=== PATIENT | female | born 1980 | race Caucasian/White ===

== ENCOUNTER 2020-10-06 11:33 | Emergency (ER) | payer MEDICARE, MEDICAID, SELFPAY ==
[2020-10-06 11:38] VITALS: BP 147/81; PULSE 98; RESP 18; O2SAT 96
[2020-10-06] MEDS: SODIUM CHLORIDE 0.9% IV 1,000 ML 999 ML IV CONT (12:03)
[2020-10-06 13:16] VITALS: BP 132/89; PULSE 97; RESP 16; O2SAT 99
--- NOTE | 2020-10-06 13:50 | ED.ALLEREA ---
HPI - Allergic Reaction General Chief complaint: Allergic Reaction Stated complaint: ALLERGIC REACTION Time Seen by Provider: 10/06/20 11:38 History of Present Illness HPI narrative: Patient is a 40-year-old female with extensive allergy history who presents ER with allergic reaction. Reports she touched a piece of candy that likely contained red dye and she began to develop hives on her hands. She also began to feel like her throat was swelling shut. She gave herself 2 intramuscular injections of epinephrine and 4 of Decadron. She also took 50 mg of Benadryl p.o. Patient feels much better this time. Related Data Home Medications Medication Instructions Recorded Confirmed albuterol mcg INHALATION PRN 10/06/20 azelastine INTRANASAL 10/06/20 budesonide-formoterol [Symbicort] INHALATION 10/06/20 butalbital-acetaminophen tablet PRN 10/06/20 clonazepam 0.75 10/06/20 epinephrine 10/06/20 fluticasone propionate INTRANASAL 10/06/20 hydrocortisone 35 DAILY 10/06/20 insulin lispro [Humalog Pen] See Rx Instructions .ROUTE .COMPLEX 10/06/20 levocetirizine [Xyzal] 5 mg PO QID 10/06/20 liraglutide [Victoza 3-Migel] 1.8 mg SUBCUT DAILY 10/06/20 prasterone (dhea)-calcium carb tablet PO 10/06/20 [DHEA] spironolactone 10/06/20 Allergies Allergy/AdvReac Type Severity Reaction Status Date / Time peanut Allergy Severe Anaphylactic Verified 10/06/20 11:50 Shock red dye Allergy Severe Anaphylactic Verified 10/06/20 11:50 Shock Sulfa (Sulfonamide Allergy Severe Anaphylactic Verified 10/06/20 11:50 Antibiotics) Shock famotidine Allergy Intermediate Rash Verified 10/06/20 11:50 apple Allergy Mild Hives / Verified 10/06/20 11:50 Red Face cefprozil Allergy Unknown Hives / Verified 10/06/20 11:50 Red Face celecoxib Allergy Unknown Hives / Verified 10/06/20 11:50 Red Face lansoprazole Allergy Unknown Rash Verified 10/06/20 11:50 morphine Allergy Unknown Hives / Verified 10/06/20 11:50 Red Face Penicillins Allergy Unknown Hives / Verified 10/06/20 11:50 Red Face potassium guaiacolsulfonate Allergy Unknown Hives / Verified 04/16/17 19:28 Red Face tetracycline Allergy Unknown Hives / Verified 10/06/20 11:50 Red Face Chocolate Allergy Severe Anaphylactic Uncoded 08/07/16 17:56 Shock ALMOTRIPTAN MALATE Allergy Unknown Rash Uncoded 04/16/17 19:28 CIPROFLOXACIN HCL Allergy Unknown Rash Uncoded 04/16/17 19:28 CLINDAMYCIN HCL Allergy Unknown Hives / Uncoded 04/16/17 19:28 Red Face METOCLOPRAMIDE HCL Allergy Unknown Hives / Uncoded 04/16/17 19:28 Red Face MONTELUKAST SODIUM Allergy Unknown Hives / Uncoded 04/16/17 19:28 Red Face RANITIDINE HCL Allergy Unknown Anaphylactic Uncoded 04/16/17 19:28 Shock SERTRALINE HCL Allergy Unknown Anaphylactic Uncoded 04/16/17 19:28 Shock Review of Systems Review of Systems: All systems reviewed & are unremarkable except as noted in HPI and below Constitutional: Constitutional: Denies chills, Denies fever(s) and Denies weakness ENT: Denies sore throat Comments: Swelling of throat Respiratory: Respiratory: Denies cough, Reports dyspnea and Denies wheezing Integumentary/Breasts: Comments: Rash to hands. PMFSH Past Medical History Medical History (Updated 10/06/20 @ 13:58 by Renny Anderson MD) Asthma Diabetes Gilbert's thyroiditis Kidney stones Migraines PTSD (post-traumatic stress disorder) Surgical History Surgical History (Updated 10/06/20 @ 13:55 by Renny Anderson MD) History of section Social History Social History Gender identity (if verbalized by the patient): Female Exam Narrative: Exam Narrative: GENERAL: Well-appearing, well-nourished, and in no acute distress. HEAD: Normocephalic, atraumatic. ENT: Mucous membranes moist. No angioedema. Normal-appearing posterior oropharynx. CHEST: Clear to auscultation. No respiratory distress. HEART: Regular rate and rhythm. No
[2020-10-06 14:13] VITALS: BP 119/82; PULSE 91; RESP 16; O2SAT 98
== END 2020-10-06 14:14 | disposition home or self-care (01) ==
PROVIDERS: Emergency Provider Emergency Medicine; PCP Family Medicine
DX: L50.0 Allergic urticaria (principal); Z79.4 Long term (current) use of insulin; E11.9 Type 2 diabetes mellitus without complications
CPT/HCPCS: 96360; 99283; J7030

== ENCOUNTER 2021-03-20 14:46 | Emergency (ER) | payer MEDICARE, MEDICAID, SELFPAY ==
[2021-03-20 14:55] VITALS: BP 140/86; PULSE 89; RESP 16; TEMP 36.6; O2SAT 99
--- NOTE | 2021-03-20 15:49 | ED.URI ---
HPI - URI/Sore Throat General Chief Complaint: Upper Respiratory Infection Stated Complaint: chest congestion with asthma Time Seen by Provider: 03/20/21 15:34 Source: patient and RN notes reviewed Mode of arrival: ambulatory Limitations: no limitations History of Present Illness HPI Narrative: Patient presents today with a 6 to 7-day history of postnasal drip, congestion, fatigue, productive cough with yellow sputum, shortness of breath with mild wheezing. The wheezing started a few hours prior to arrival. Denies fever. History of asthma, adrenal insufficiency, Gilbert's thyroiditis, diabetes. She currently rates her pain 5/10 and has been using Flonase, Mucinex, sinus rinses, extra doses of her Symbicort per her doctor's order with some relief. MD elicited complaint: cough and nasal congestion Related Data Home Medications Medication Instructions Recorded Confirmed albuterol 90 mcg INHALATION Q4H PRN 10/06/20 azelastine See Rx Instructions .ROUTE .COMPLEX 10/06/20 epinephrine See Rx Instructions .ROUTE 10/06/20 .COMPLEX PRN albuterol sulfate INHALATION 03/20/21 azelastine INTRANASAL 03/20/21 blood-glucose sensor [Dexcom G6 03/20/21 03/20/21 Sensor] blood-glucose transmitter [Dexcom 03/20/21 03/20/21 G6 Transmitter] budesonide-formoterol [Symbicort] INHALATION 03/20/21 butalbital-acetaminophen tablet 03/20/21 clonazepam 03/20/21 clotrimazole mg 03/20/21 dexamethasone sodium phosphate 03/20/21 epinephrine 03/20/21 fluticasone propionate INTRANASAL 03/20/21 hydroxyzine HCl 03/20/21 insulin lispro SUBCUT 03/20/21 ipratropium-albuterol ml INHALATION 03/20/21 levocetirizine mg 03/20/21 levothyroxine 03/20/21 liraglutide [Victoza 3-Migel] mg SUBCUT 03/20/21 medroxyprogesterone mg 03/20/21 medroxyprogesterone mg 03/20/21 mometasone-formoterol [Dulera] INHALATION 03/20/21 pen needle, diabetic [BD Isela 2nd 03/20/21 03/20/21 Gen Pen Needle] promethazine 03/20/21 spironolactone 03/20/21 Allergies Allergy/AdvReac Type Severity Reaction Status Date / Time peanut Allergy Severe Anaphylactic Verified 03/20/21 15:29 Shock red dye Allergy Severe Anaphylactic Verified 03/20/21 15:29 Shock Sulfa (Sulfonamide Allergy Severe Anaphylactic Verified 03/20/21 15:29 Antibiotics) Shock famotidine Allergy Intermediate Rash Verified 03/20/21 15:29 apple Allergy Mild Hives / Verified 03/20/21 15:29 Red Face cefprozil Allergy Unknown Hives / Verified 03/20/21 15:29 Red Face celecoxib Allergy Unknown Hives / Verified 03/20/21 15:29 Red Face lansoprazole Allergy Unknown Rash Verified 03/20/21 15:29 morphine Allergy Unknown Hives / Verified 03/20/21 15:29 Red Face Penicillins Allergy Unknown Hives / Verified 03/20/21 15:29 Red Face potassium guaiacolsulfonate Allergy Unknown Hives / Verified 03/20/21 15:29 Red Face tetracycline Allergy Unknown Hives / Verified 03/20/21 15:29 Red Face Chocolate Allergy Severe Anaphylactic Uncoded 03/20/21 15:29 Shock ALMOTRIPTAN MALATE Allergy Unknown Rash Uncoded 03/20/21 15:29 CIPROFLOXACIN HCL Allergy Unknown Rash Uncoded 03/20/21 15:29 CLINDAMYCIN HCL Allergy Unknown Hives / Uncoded 03/20/21 15:29 Red Face METOCLOPRAMIDE HCL Allergy Unknown Hives / Uncoded 03/20/21 15:29 Red Face MONTELUKAST SODIUM Allergy Unknown Hives / Uncoded 03/20/21 15:29 Red Face RANITIDINE HCL Allergy Unknown Anaphylactic Uncoded 03/20/21 15:29 Shock SERTRALINE HCL Allergy Unknown Anaphylactic Uncoded 03/20/21 15:29 Shock Review of Systems Review of Systems: CONSTITUTIONAL: Denies body aches, fever, chills, or sweats.+ Fatigue EYES: Denies visual changes, redness, or discharge. ENT: Denies rhinorrhea, sore throat, or otalgia.+ Congestion, postnasal drip CARDIOVASCULAR: Denies chest pain, palpitations, or edema. RESPIRATORY: + Cough, shortness of breath, wheezing GASTROINTESTINAL: Denies abdominal pain, nausea, v
== END 2021-03-20 16:05 | disposition home or self-care (01) ==
PROVIDERS: Emergency Provider Nurse Practitioner; PCP Family Medicine
DX: J06.9 Acute upper respiratory infection, unspecified (principal); J45.901 Unspecified asthma with (acute) exacerbation; E11.9 Type 2 diabetes mellitus without complications; E06.3 Autoimmune thyroiditis
CPT/HCPCS: 99213; G0463

== ENCOUNTER 2022-01-20 09:04 | Emergency (ER) | payer MEDICARE, MEDICAID, SELFPAY ==
[2022-01-20 09:12] VITALS: BP 134/92; PULSE 104; RESP 16; TEMP 36.9; O2SAT 98
--- NOTE | 2022-01-20 09:44 | ED.FEMALEGU ---
HPI - Female Genitourinary General Chief complaint: Urogenital-Female Stated complaint: Urinary Problem Time Seen by Provider: 01/20/22 09:44 Source: patient and RN notes reviewed Mode of arrival: ambulatory Limitations: no limitations History of Present Illness HPI Narrative: 41 y/o female presented for c/o low abdominal/pelvic pain for 4 days. Denies dysuria or hematuria. Endorses frequency and low back pain. States she has a history of kidney stones. Has been drinking large amounts of cranberry juice. Denies nausea, vomiting, diarrhea, constipation, fever or chills. No concern for std. No longer having menstrual cycles while taking medication. History of Diabetes, adrenal insufficiency. Related Data Home Medications Medication Instructions Recorded Confirmed azelastine 137 mcg (0.1 %) nasal See Rx Instructions .Route .COMPLEX 10/06/20 01/20/22 spray aerosol albuterol sulfate 90 mcg/actuation 2 puff inhalation Q4H PRN sob 03/20/21 01/20/22 aerosol inhaler blood-glucose sensor ([employer] G6 03/20/21 01/20/22 Sensor device) blood-glucose transmitter (Dexcom 03/20/21 01/20/22 G6 Transmitter device) budesonide-formoterol HFA 160 2 puff inhalation BID 03/20/21 01/20/22 mcg-4.5 mcg/actuation aerosol inhaler (Symbicort) butalbital 50 mg-acetaminophen 325 See Rx Instructions .Route 03/20/21 01/20/22 mg tablet .COMPLEX PRN Headache clonazepam 0.5 mg tablet 0.25 mg PO TID 03/20/21 01/20/22 dexamethasone sodium phosphate 4 See Rx Instructions .Route 03/20/21 01/20/22 mg/mL injection solution .COMPLEX PRN pain epinephrine 0.3 mg/0.3 mL See Rx Instructions .Route 03/20/21 01/20/22 injection, auto-injector .COMPLEX PRN Anaphylaxis fluticasone propionate 50 1 spray intranasal BID 03/20/21 01/20/22 mcg/actuation nasal spray,suspension hydroxyzine HCl 10 mg tablet 10 mg PO QID PRN Anxiety 03/20/21 01/20/22 insulin lispro 100 unit/mL 5 unit subcut AC 03/20/21 01/20/22 subcutaneous pen ipratropium 0.5 mg-albuterol 3 mg 3 ml inhalation Q4H PRN sob 03/20/21 01/20/22 (2.5 mg base)/3 mL nebulization soln levocetirizine 5 mg tablet 5 mg PO QID 03/20/21 01/20/22 levothyroxine 25 mcg tablet 25 mcg PO DAILY 03/20/21 01/20/22 liraglutide 0.6 mg/0.1 mL (18 mg/3 1.8 mg subcut DAILY 03/20/21 01/20/22 mL) subcutaneous pen injector (Lizhitoza 3-Migel) mometasone-formoterol HFA 200 2 puff inhalation BID 03/20/21 01/20/22 mcg-5 mcg/actuation aerosol inhaler (Dulera) pen needle, diabetic 32 gauge x 03/20/21 01/20/22 5/32 (BD Isela 2nd Gen Pen Needle) promethazine 25 mg tablet 1 mg PO QID 03/20/21 01/20/22 spironolactone 50 mg tablet 50 mg PO TID 03/20/21 01/20/22 Allergies Allergy/AdvReac Type Severity Reaction Status Date / Time chocolate flavor Allergy Severe Anaphylactic Verified 01/20/22 09:31 Shock peanut Allergy Severe Anaphylactic Verified 01/20/22 09:27 Shock ranitidine Allergy Severe Anaphylactic Verified 01/20/22 09:35 Shock red dye Allergy Severe Anaphylactic Verified 01/20/22 09:27 Shock Sulfa (Sulfonamide Allergy Severe Anaphylactic Verified 01/20/22 09:27 Antibiotics) Shock clindamycin Allergy Intermediate Hives Verified 01/20/22 09:34 famotidine Allergy Intermediate Rash Verified 01/20/22 09:27 metoclopramide Allergy Intermediate Hives Verified 01/20/22 09:35 montelukast Allergy Intermediate Hives Verified 01/20/22 09:36 sertraline Allergy Intermediate Hives Verified 01/20/22 09:37 almotriptan [From Axert] Allergy Mild Rash Verified 01/20/22 09:30 apple Allergy Mild Hives / Verified 01/20/22 09:27 Red Face ciprofloxacin Allergy Mild Rash Verified 01/20/22 09:33 cefprozil Allergy Unknown Hives / Verified 01/20/22 09:27 Red Face celecoxib Allergy Unknown Hives / Verified 01/20/22 09:27 Red Face lansoprazole Allergy Unknown Rash Verified 01/20/22 09:27 morphine Allergy Unknown Hives / Verified 01/20/22 09:27 Red Face Penicillins Allergy Unknown Hives / Verifi
== END 2022-01-20 09:55 | disposition home or self-care (01) ==
PROVIDERS: Emergency Provider Nurse Practitioner Family; PCP Family Medicine
DX: R10.30 Lower abdominal pain, unspecified (principal); E11.9 Type 2 diabetes mellitus without complications; E06.3 Autoimmune thyroiditis; J45.909 Unspecified asthma, uncomplicated
CPT/HCPCS: 81003; 87086; 99213; G0463

== ENCOUNTER 2024-06-28 16:41 | Emergency (ER) | payer MEDICARE, MEDICAID, SELFPAY ==
--- OUTSIDE RECORDS SUMMARY | 2024-06-28 16:42 | XMS_ITS | Encounter Summary ---
Author Organization [facility] Healthcare Address [address] [place] [address] Care Team Providers Care Rewinder Name Role Phone Juan Lyons MD Primary Care Provider [phone] Sarah Pierson MD Unavailable [phone] Silvia Alonso NP Unavailable [phone] Steve Segovia MD Unavailable [phone] Reason for Visit * Reason Onset Date Comments Scheduling Appointments 02/23/2021 Confirmi ng mammogram appt Encounter Details Date Type Department Care Team (Late st Contact Info) Description 02/23/2021 Telephone [facility] [address] [place] [id number] Deborah Reyes RT Scheduling Appointments (Confirming mammogram appt) Social History Tobacco Use Types Packs/Day Years Used Date Smoking Tobacco: Never Smokeless Tobacco: Never Alcohol Use Standard Drinks/Week Comments No 0 (1 standard drink = 0.6 oz pur e alcohol) Comments No Sex and Gender Information Value Date Recorded Sex Assigned at Not on file 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
--- OUTSIDE RECORDS SUMMARY | 2024-06-28 16:43 | XMS_ITS | Encounter Summary ---
Author Organization [facility] Address [address] [place] [address] Care Team Providers Care Traveling Crane Operator Name Role Phone Juan Lyons MD Primary Care Provider [phone] Sarah Pierson MD Unavailable [phone] Silvia Alonso NP Unavailable [phone] Steve Segovia MD Unavailable [phone] Reason for Visit * Reason Onset Date Comments Scheduling Appointments 10/30/2019 Called f or DEXA appointment, No answer Encounter Details Date Type Department Care Team (Late st Contact Info) Description 10/30/[address] [id number] Jing Chairez RT Scheduling Appointments (Called for DEXA appointment, No answer) Social History Tobacco Use Types Packs/Day Years Used Date Smoking Tobacco: Never Smokeless Tobacco: Never Alcohol Use Standard Drinks/Week Comments No 0 (1 standard drink = 0.6 oz pur e alcohol) Comments No Sex and Gender Information Value Date Recorded Sex Assigned at Not on file 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
--- OUTSIDE RECORDS SUMMARY | 2024-06-28 16:43 | XMS_ITS | Clinical Summary ---
Author Organization [facility] Address [address] [place] [id number] Care Team Providers Care [employer] Name Role Phone Juan Lyons MD Primary Care Provider [phone] Sarah Pierson MD Unavailable Silvia Alonso NP Unavailable [phone] Steve Segovia MD Unavailable [phone] Allergies Active Allergy Reactions Criticality Noted Date Comments Almotriptan Malate Anaphylaxis High Amitriptyline Other (See comments) Low Reaction: uncontrollable rage, Amoxicillin Hives Medium 09/09/2022 Apple Hives Medium Reaction: Hives, , , Banana Anaphylaxis High Reaction: anaphylaxis, Cefazolin Other (See comments) Low Reaction: Cefprozil Hives High Reaction: Hives, , , , Reaction: Hives, Celecoxib Hives,Rash,Other (See comments) High Reaction: Hives, , Reaction: Hives, Skin Rash, , , , , Reaction: Hives, Woodruff Itching,Swelling Medium Chloroxylenol Other (See comments),Anaphyla xis High 08/18/2016 Reaction: anaphylaxix, Chocolate Anaphylaxis,Other (See comments) High Reaction: Anaphylaxis, Migraine, Chocolate Flavor Anaphylaxis High Ciprofloxacin Rash Medium Reaction: Rash, , , , Reaction: Rash, Ciprofloxacin (Bulk) Rash Medium 04/05/2013 Clindamycin Hives High Reaction: Hives, , Reaction: Hives, , , , , , , , , Reaction: Hives, Clindamycin Hcl Rash Medium 04/05/2013 Colloidal Oatmeal Rash Medium 04/01/2019 Cream Flavor Anaphylaxis High Reaction: anaphylaxis, Venlafaxine Dystonia High 10/09/2016 Tardive diskinesia Escitalopram Oxalate Hives Medium 05/01/2017 Famotidine Hives,Wheezing Medium 10/27/2019 Fd And C Red No.40 Anaphylaxis High 08/18/2016 Gluten Unknown 06/09/2017 Lansoprazole Hives,Rash,Other (See comments) Medium Reaction: Rash, , Reaction: Hives, Skin Rash, , , , , Reaction: Rash, Escitalopram Other (See comments) Low 01/03/2017 suicidal Metoclopramide Hives,Rash Medium Reaction: Hives, , , , Reaction: Rash, Metoclopramide Hcl Rash Medium 04/05/2013 Montelukast Hives,Other (See comments) High Reaction: Hives, , , , Reaction: hives, , , Reaction: Hives, Montelukast Sodium Hives Medium 04/01/2019 hives Morphine Hives,Rash,Other (See comments) Medium Reaction: Hives, , Reaction: Hives, Skin Rash, , , Omalizumab Anaphylaxis High 08/18/2016 Reaction: anaphylaxis, Opioids - Morphine Analogues Hives High Reaction: Hives, Peanut Other (See comments) Low Reaction: anaphylaxis., , , Peanut Butter Flavor Anaphylaxis High 08/18/2016 Penicillins Rash,Other (See comments) Medium Reaction: Hives, , Reaction: Rash, , , , Pineapple Anaphylaxis High Reaction: anaphylaxis, Potassium Guaiacolsulfonate Hives,Wheezing Medium Reaction: hives, wheezing, Prednisone Mental status changes Low 04/30/2018 Drug specific Prochlorperazine Other (See comments) Low 04/01/2019 Tardive dyskinesia Ranitidine Other (See comments) Low Reaction: Anaphylaxis, , , , Ranitidine Hcl Rash Medium 04/05/2013 Red Dye Anaphylaxis,Other (See comments) High Reaction: number 40, , Sertraline Anaphylaxis High Reaction: Anaphylaxis, , , , Reaction: Anaphylaxis, Sertraline Hcl Anaphylaxis High 08/18/2016 Sesame Oil Dystonia High Sucralfate Hives,Rash,Shortne ss of breath High Reaction: Rash, Short of breath, Sulfa (Sulfonamide Antibiotics) Anaphylaxis,Rash High 08/18/2016 Reaction: Rash, Sulfanilamide Anaphylaxis High Mcadoo Oil Shortness of breath High 08/18/2016 Tetracycline Hives,Rash,Other (See comments) Medium Reaction: Hives, , Reaction: Hives, Skin Rash, , , , Tetracyclines Rash Reaction: Rash, Tramadol Other (See comments) Low 09/10/2022 Depression/SI Wasp Venom Anaphylaxis High 10/09/2016 Wheat Itching Reaction: Itching, Wheat Containing Prod Unknown 08/18/2016 Zolpidem Hives Medium 09/09/2022 Zolpidem Tartrate Hives Medium 04/01/2019 Hives, depression Medications b complex vitamins (B COMPLEX 1) tablet 0 0 Active calcium citrate (CALCITRATE) 950 mg (200 mg elemental) tablet 0 0 Active magnesium citrate 100 mg tablet Take 100 mg by mouth daily. Active promethazine (PHENERGAN) 25 mg tabletIndications :Moderate persistent asthma with acute exacerbation Take 1 tablet (25 mg total) by mouth every 6 (six) hours as needed for nausea or vomiting. 90 tablet Active Lactobac 40-Bifido 3-S.thermop 100 billion cell capsule Take 1 capsule by mouth 3 (three) times a day 90 capsule Active cholecalciferol (VITAMIN D3) 5,000 unit tablet 1 daily 30 tablet Active melatonin 5 mg tablet Take 1 tablet (5 mg total) by mouth nightly 30 tablet Active butalbital-acetam inophen 50-325 mg tabletIndications :Intractable migraine with aura with status migrainosus Take 1-2 tablets by mouth every 4 hours as needed for migraines. Max 6 tabs in 24 hours 30 tablet 5 Active OneTouch Delica Lancets 33 gauge misc Use 3 times daily 300 each 3 Active vitamin B complex with folic acid tablet Take by mouth 1 daily Active zinc sulfate (ZINCATE) 50 mg zinc (220 mg) capsule Take by mouth Active clonazePAM (KlonoPIN) 0.125 mg disintegrating tablet DISSOLVE 1 TABLET ON THE TONGUE EVERY DAY DIRECTED 022 Active inhalational spacing device (Aerochamber Plus Z Stat) spacer 1 Device daily 2 each 2 023 Active blood-glucose sensor (Dexcom G7 Sensor) deviceIndications :Type 2 diabetes mellitus without complication, with long-term current use of insulin (HCC) Change sensor every 10 days 9 each 3 023 Active clotrimazole (MYCELEX) 10 mg trocheIndications :Dysuria,Cervical bina Take 1 tablet (10 mg total) by mouth 5 (five) times a day 35 tablet 11 023 Active alcohol swabs (BD Alcohol Swabs) pads, medicatedIndicati ons:Steroid-induc ed diabetes mellitus, subsequent encounter USE 1 PAD TO CLEAN AREA OF SKIN 6 TIMES DAILY BEFORE INJECTIONS 200 each 11 023 Active prasterone, dhea, 50 mg tablet Take 10 mg by mouth daily Active OneTouch Verio test strips stripIndications: Steroid-induced diabetes USE TO CHECK BLOOD SUGAR FOUR TIMES DAILY 100 strip 024 Active mometasone (NASONEX) 50 mcg/actuation nasal spray Administer 2 sprays into each nostril 2 (two) times a day 17 g 024 2024 Active insulin lispro (HumaLOG, ADMELOG) 100 unit/mL pen for injectionIndicati ons:Type 2 diabetes mellitus without complication, with long-term current use of insulin ([facility]) INJECT 10-15 BEFORE MEALS PLUS SLIDING SCALE UP TO 4 TIMES DAILYPER SLIDING SCALE. MAX DAILY DOSE OF 50 UNITS 30 mL 024 Active dexAMETHasone (DECADRON) 4 mg/mL injectionIndicati ons:Adrenal Cortical Insufficiency INJECT 0.5(2MG) INTO THE MUSCLE INSTRUCTED NEEDED FOR ADRENAL CRISIS 10 mL 024 Active calcipotriene (DOVONOX) 0.005 % ointment Active hydrocortisone (CORTEF) 10 mg tabletIndications :Adrenal insufficiency TAKE 2 TO 4 TABLETS BY MOUTH AT 8 AM AND 1 TO 2 TABLETS AT NOON 540 tablet 2 024 Active hydrocortisone (CORTEF) 5 mg tabletIndications :Adrenal insufficiency,Aut oimmune thyroiditis,Multi nodular thyroid,Acquired hypothyroidism TAKE 3 TABLETS BY MOUTH AT 4AM, 3@7AM. 1.5@10AM, 1.5@1PM, 1@5PM, 1/2@830. CAN TAKE UP TO 6 TABLETS EXTRA A DAY 200 tablet 10 024 Active hydrOXYzine (ATARAX) 10 mg tablet Take 1 tablet (10 mg total) by mouth every 6 (six) hours as needed for itching 30 tablet 5 024 Active azelastine (ASTELIN) 137 mcg (0.1 %) nasal spray Administer 2 sprays into each nostril 2 (two) times a day Use in each nostril as directed 30 mL 024 Active EPINEPHrine 0.3 mg/0.3 mL auto-injection syringeIndication s:Multiple food allergies INJECT 0.3ML INTO THE MUSCLE INSTRUCTED NEEDED FOR ANAPHYLAXIS 2 each 024 Active spironolactone (ALDACTONE) 50 mg tabletIndications :Type 2 diabetes mellitus without complication, with long-term current use of insulin ([facility]),Adrenal insufficiency,Acq uired hypothyroidism,Mu ltinodular thyroid,rn long term care (current) use of systemic steroids TAKE 1 AND 1/2 TABLETS BY MOUTH THREE TIMES DAILY 420 tablet 1 024 Active insulin degludec (TRESIBA) 100 unit/mL (3 mL) pen for injectionIndicati ons:Type 2 diabetes mellitus without complication, with long-term current use of insulin ([facility]) Inject 0.15 mL (15 Units total) under the skin daily 15 mL 1 024 Active baclofen (LIORESAL) 10 mg tabletIndications :Pain in both upper extremities Take 1/2 to 1 tablet as needed, by mouth, 3 times a day. 28 tablet 024 Active tirzepatide (Mounjaro) 15 mg/0.5 mL pen injectorIndicatio ns:Type 2 diabetes mellitus without complication, with long-term current use of insulin ([facility]) ADMINISTER 15MG UNDER THE SKIN EVERY 7 DAYS 6 mL 3 024 Active potassium chloride ER 8 mEq CR capsuleIndication s:Type 2 diabetes mellitus without complication, with long-term current use of insulin ([facility]),Adrenal insufficiency,Sev ere adrenal insufficiency,Dys uria TAKE 1 CAPSULE(8 MEQ) BY MOUTH TWICE DAILY 180 capsule 1 025 Active Advair HFA 230-21 mcg/actuation inhaler Inhale 2 puffs 2 (two) times a day Rinse mouth with water after use. Do not swallow. 1 each Active valACYclovir (VALTREX) 1 gram tablet Take 1 tablet (1,000 mg total) by mouth 3 (three) times a day Active norethindrone (AYGESTIN) 5 mg tablet Take 1 tablet (5 mg total) by mouth daily 30 tablet 11 025 2025 Active budesonide (PULMICORT) 0.5 mg/2 mL nebulizer solution MIX 1 VIAL IN 8 OZ OF SALINE AND INSTILL 4 OZ OF SOLUTION IN EACH NOSTRIL TWICE DAILY 120 mL 2 025 Active pen needle, diabetic (BD Isela 2nd Gen Pen Needle) 32 gauge x 5/32 needleIndications :Type 2 diabetes mellitus without complication, without long-term current use of insulin (HCC) USE TO INJECT MEDICATIONS 5 TIMES DAILY OR DIRECTED 500 each 3 025 Active ipratropium-albut Dru (DUO-NEB) 0.5-2.5 mg/3 mL nebulizer solution USE 1 VIAL VIA NEBULIZER EVERY 4 HOURS NEEDED 540 mL 1 025 Active doxycycline monohydrate (MONODOX) 100 mg capsule 025 Active levothyroxine sodium (TIROSINT) 50 mcg capsule 1 capsule (50 mcg total) 025 Active levothyroxine sodium (TIROSINT) 88 mcg capsuleIndication s:Acquired hypothyroidism Take 1 capsule (88 mcg total) by mouth box bender before breakfast 30 capsule 11 025 Active levocetirizine (XYZAL) 5 mg tablet TAKE 1 TABLET(5 MG) BY MOUTH FOUR TIMES DAILY 90 tablet 2 025 Active albuterol HFA (PROVENTIL HFA,VENTOLIN HFA,PROAIR HFA) 90 mcg/actuation inhaler INHALE 1 TO 2 PUFFS BY MOUTH EVERY 4 HOURS NEEDED FOR WHEEZING 8.5 g 2 025 Active ipratropium-albut Dru (DUO-NEB) 0.5-2.5 mg/3 mL nebulizer solution USE 1 VIAL VIA NEBULIZER EVERY 4 HOURS NEEDED 540 mL 1 023 2024 Discontinued(Rubens gutierrez) pen needle, diabetic 32 gauge x 32 needleIndications :Type 2 diabetes mellitus without complication, without long-term current use of insulin (HCC) Use to inject medications 5 times daily or as directed 500 each 3 023 2024 Discontinued budesonide (PULMICORT) 0.5 mg/2 mL nebulizer solution MIX 1 VIAL IN 8 OZ OF SALINE AND INSTILL 4 OZ OF SOLUTION IN EACH NOSTRIL TWICE DAILY 120 mL 2 024 2024 Discontinued albuterol HFA (PROVENTIL HFA,VENTOLIN HFA,PROAIR HFA) 90 mcg/actuation inhaler INHALE 1 TO 2 PUFFS BY MOUTH EVERY 4 HOURS NEEDED FOR WHEEZING 8.5 g 2 024 2024 Discontinued levocetirizine (XYZAL) 5 mg tablet TAKE 1 TABLET(5 MG) BY MOUTH FOUR TIMES DAILY 90 tablet 1 025 2024 Discontinued levothyroxine sodium (TIROSINT) 75 mcg capsule Take 1 capsule (75 mcg total) by mouth box bender before breakfast 90 capsule 3 025 2024 Discontinued doxycycline (VIBRAMYCIN) 100 mg capsuleIndication s:bronchitis Take 1 tablet/capsule (100 mg total) by mouth 2 (two) times a day for 14 days 28 tablet/caps ule 025 2024 levocetirizine (XYZAL) 5 mg tablet TAKE 1 TABLET(5 MG) BY MOUTH FOUR TIMES DAILY 90 tablet 025 2024 Discontinued levothyroxine (SYNTHROID) 88 mcg tabletIndications :Acquired hypothyroidism Take 1 tablet (88 mcg total) by mouth daily 30 tablet 11 025 2024 Discontinued Active Problems Patient Care Coordination No te Formatting of this note is d ifferent from the original. Good morning, Much of the weight gain is likely related to your steroids, but in June good level was borderline on the low side, so it would be reasonable to increase your levothyroxine 25 mcg from 2 pills up to 3 pills daily. We can see how you do with this, and recheck the levels in a couple of months. Please let me know if and when you need an update on her prescription. Best regards, Sarah Pierson M.D. Previous Messages ----- Message ----- From: Paige Irvin Sent: 09/21/2017 7:07 AM CDT To: Sarah Pierson MD Subject: RE: RE: Follow-up Terell , I forgot to ask you yesterday if my levothyroxine dosage needed changed due to the significant weight gain? I know we decreased it when I lost a lot of weight last year. I'm up to about 160lbs right now and am exhausted pretty much all the time. I'm also still taking the baclofen on a regular schedule as the high prednisone dosages have increased the muscle spasms again. Sincerely, Paige Irvin ----- Message ----- From: Sarah Pierson MD Sent: 09/20/17 12:15 PM To: Paige Irvin Subject: RE: Follow-up Good afternoon, It will be fine for you to decrease to 15/5/5 now, and see how you do. I presume her asthma is doing much better now. Again, please keep me posted as to your progress. Best regards, Sarah Pierson M.D. ----- Message ----- From: Paige Irvin Sent: 09/19/2017 4:39 PM CDT To: Sarah Pierson MD Subject: RE: Follow-up It's no problem, just wanted to double-check on how fast I could safely drop down the dose. If it is okay with you I would like to return to the three times a day dosing, so 15/5/5 for the next several days. Also, I have gained a significant amount of weight. Do I need to stay on the 25mg total for an entire week? I don't remember being able to lose any weight until I got down to 10 mg total in the past. Sincerely, Paige Irvin ----- Message ----- From: Sarah Pierson MD Sent: 09/19/17 4:23 PM To: Paige Irvin Subject: Follow-up Good afternoon, I have repeatedly tried to contact you by telephone, but apparently this does not connect. After U of completed the Prednisone 20 and 10 for the third day, I would decrease this to 15 mg in the mornings and 10 in the evenings for at least the next week Please keep me posted as to your progress Best regards, Sarah Pierson M.D. Problem Noted Date Diagnosed Date Hyperlipidemia 12/06/2023 Assessment & Plan (05/08/2024 11:41 AM RECEIVING CLERK): Multiple drug allergies. Consider PCSK9 therapy in the future. Currently maintain optimal glycemic control Umbilical hernia 10/22/2023 Assessment & Plan (10/27/2023 7:37 PM CDT): Will likely need surgery. Advised of need to hold GLP-1 agonist for at least a week before surgery (takes Mounjaro on Fridays). Will also need stress steroids on day of surgery. Psoriasis 05/07/2023 Abnormal mammogram 06/01/2021 Family history of breast cancer 06/01/2021 Personal history of COVID-19 05/16/2021 Overview (05/16/2021): Pfizer vaccine 06/11/20, 07/19/20, 12/10/20; COVID 04/15/2021 Assessment & Plan (05/16/2021 12:00 PM RECEIVING CLERK): Pfizer vaccine 06/11/20, 07/19/20, 12/10/20; COVID 04/15/2021 Has immunity to COVID-19 virus 11/12/2020 Overview (05/17/2022): Pfizer coronavirus vaccine x 4 Assessment & Plan (05/17/2022 7:56 AM RECEIVING CLERK): Fully vaccinated Assessment & Plan (11/08/2021 6:46 AM CDT): Fully vaccinated, eligible for booster. Assessment & Plan (08/08/2021 12:45 PM CDT): Fully vaccinated, eligible for booster. Assessment & Plan (05/13/2021 4:32 PM RECEIVING CLERK): Pfizer coronavirus vaccine 12/10/2020, 07/19/2020, 06/21/2020 Type 2 diabetes mellitus, wi th long-term current use of insulin 03/02/2020 Assessment & Plan (05/08/2024 11:42 AM RECEIVING CLERK): Doing reasonably well with mealtime Humalog, weekly Mounjaro and low dose Tresiba basal insulin. Assessment & Plan (10/27/2023 7:38 PM CDT): Doing reasonably well with mealtime Humalog, weekly Mounjaro and no basal insulin. Assessment & Plan (04/20/2023 7:38 PM RECEIVING CLERK): Glucoses within a reasonably level of control and safety. She is adept in managing with changes in infections, steroids and stresses. Assessment & Plan (02/07/2023 12:30 PM CDT): -Currently taking Humalog + Mounjaro 15 mg weekly -A1c was 6.1% on 12/20/2022 -Dexcom download indicates time in range of 74%. Overall pattern looks stable. She would like blood sugars to be lower. She has been on various steroid doses and higher insulin doses resulting in some variable readings. For now, continue same medication regimen and continue to monitor. -Discussed diet and activity modifictions. -Advised to call with any concerns/complaints regarding glucose readings -Eye exam is up to date Assessment & Plan (10/14/2022 7:31 PM CDT): Some insulin resistance with stress-dose steroids, but she is adjusting appropriately and safely. Monitoring safely and accurately with her Dexcom CGM. Assessment & Plan (08/18/2022 12:33 PM CDT): -Currently taking Humalog + Mounjaro 15 mg weekly -Dexcom download indicates excellent time in range at 95%. 2 week GMI is 6.4%. Will continue same regimen for now. -Discussed diet and activity modifictions. -Advised to call with any concerns/complaints regarding glucose readings -Eye exam is up to date -Repeat A1C Assessment & Plan (05/18/2022 11:01 AM RECEIVING CLERK): Glucoses a little higher recently because of intercurrent illness, steroid treatment, but doing quite well at this time. Because of recent hypokalemia, we will recheck BMP and magnesium levels Assessment & Plan (02/08/2022 12:56 PM CDT): -Currently taking Humalog + Mounjaro 7.5 mg weekly -A1c on 02/08/22 was 5.7% -Dexcom download indicates a flat pattern with little variability. Will increase Mounajro to 10 mg weekly to try to minimize insulin dosing. Will follow with her response. -Discussed diet and activity modifictions. -Advised to call with any concerns/complaints regarding glucose readings -Eye exam is up to date -Fasting labs ordered Assessment & Plan (11/11/2021 10:15 AM CDT): Doing very well with Ozempic, need to maintain current management Assessment & Plan (08/09/2021 7:23 AM CDT): Recently required higher doses of basal insulin, but now that her steroids have been decreased her sugars have been much better. She is doing very well with her current regimen but continues at least 3 shots of insulin daily with meals Assessment & Plan (05/16/2021 11:58 AM RECEIVING CLERK): Her insulin requirements have increased because of recent elevations in her glucocorticoids, but she is managing this well. Need to maintain a good margin of safety Assessment & Plan (02/14/2021 1:56 PM RECEIVING CLERK): -Currently taking Humalog + Victoza -Dexcom download indicates relatively flat glucose pattern. Will continue same medication regimen for now. -Discussed diet and activity modifictions. -Advised to call with any concerns/complaints regarding glucose readings -Eye exam is up to date -Fasting labs ordered Assessment & Plan (11/12/2020 3:20 PM CDT): She does quite well with her Dexcom, has some slight increase levels with meals and sliding scale works reasonably well. Assessment & Plan (2020 12:10 PM CDT): Glucoses tend to increase in the AMs, after her second hydrocortisone dose, even when not eating. Suggests that she may need to reduce that dose, once her social/clinical situations in a few weeks are amenable to making the change. Assessment & Plan (06/11/2020 10:43 AM RECEIVING CLERK): Glucoses often above target associated with fluctuations in glucocorticoids. She checks her glucoses four times daily and takes Humalog sliding scale 4 times daily to adjust based on her glucose levels. She should benefit greatly from a Dexcom CGM device. Need f/u HA1c level Assessment & Plan (03/02/2020 10:01 AM RECEIVING CLERK): Related to steroids, A1c now within a an acceptable range. Doing reasonably well with current management Menstrual cycle problem 02/17/2020 Overview (09/23/2020): -Patient attributing recent crises secondary to her menstrual periods. -Formal US 12/2019 normal and known hypoT Previously counseled patient on limited data regarding menstrual periods and adrenal insufficiency/crises. Review of literature with conflicting data regarding physiologicstresses of bleeding related to hormone changes (estrogen/progesterone/sex hormone binding globulin) vs actual bleeding/prostaglandin production. Some studies suggest that progesterone leads to increased cortisol response and actually improve cortisol production. https://www.sciencedirect.com/science/article/pii/G417300575418460Q Previously reviewed hormonal control methods and her contraindication to estrogen provided her migraines with aura. We reviewed other options for progesterone therapy such as POPs, DMPA, implant or LNG IUS are generally able to provide improved cycle control and/or menstrual suppression and that non-hormonal options such as tranexamic acid can improve bleeding without hormonal side effects. Patient extremely apprehensive to hormone based therapy provided strong FH of breast cancer (maternal grandmother <50s, aunt, mother) and previous negative experiences with progesterone. We also reviewed the slight increased risk of breast cancer with progesterone alone in the women's health study but that increased risk may be beneficial to avoid crises and surgery. Finally, one could consider a trial of GnRH agonist (Lupron) or antagonist (Orlissa) for short course but this is not a penitentiary solution Since visit 05/03/2020, her bleeding has resolved and her adrenal crises have markedly improved. She would like to try 10 mg Provera to see if this improves her symptoms even more. Reviewed this is a reasonable plan. Acquired hypothyroidism 06/02/2019 Assessment & Plan (05/08/2024 11:40 AM RECEIVING CLERK): Clinically doing well on increased dose Assessment & Plan (10/27/2023 7:39 PM CDT): Clinically euthyroid. Assessment & Plan (04/20/2023 7:36 PM RECEIVING CLERK): Clinically euthyroid but needs f/u labs Assessment & Plan (02/05/2023 11:14 AM CDT): -Appears euthyroid on replacement -She was taking Tirosint dose at 50 mcg + 13 mcg daily -labs dated 01/22/2023: Free T4 1.31, TSH 0.16 -she was instructed to continue same dosing but to take it only 6 days a week Assessment & Plan (10/14/2022 7:29 PM CDT): Clinically euthyroid Assessment & Plan (08/18/2022 12:33 PM CDT): -Appears euthyroid on replacement -Last TFT were wnl on 04/21/22 -Will continue same Tirosint dose at 50 mcg + 13 mcg daily -Reviewed proper ways to take levothyroxine replacement -Repeat TFT Assessment & Plan (05/18/2022 11:00 AM RECEIVING CLERK): Clinically euthyroid Assessment & Plan (02/08/2022 12:57 PM CDT): -Reports nervousness and hot flashes. -Currently taking 75 mcg daily -Repeat TFT -Anticipate adjusting dose to 75 mcg 6 days a week. Assessment & Plan (11/11/2021 10:14 AM CDT): Slightly hyperthyroid symptoms, need to reduce dose accordingly Assessment & Plan (08/09/2021 7:22 AM CDT): Recent reduction in her levothyroxine as her free T4 was elevated and TSH low. During reasonably well currently Assessment & Plan (05/16/2021 12:01 PM RECEIVING CLERK): Clinically euthyroid, continue current levothyroxine Assessment & Plan (02/14/2021 1:56 PM RECEIVING CLERK): -Appears euthyroid on replacement -Will continue same levothyroxine dose at 100 mcg daily -Reviewed proper ways to take levothyroxine replacement -Repeat TFT Assessment & Plan (11/12/2020 3:19 PM CDT): Clinically euthyroid and stable Assessment & Plan (2020 12:08 PM CDT): Clinically euthyroid, doing well Assessment & Plan (06/11/2020 10:45 AM RECEIVING CLERK): Clinically euthyroid, but needs f/u labs due to alterations in her sex hormone status. Assessment & Plan (03/02/2020 10:56 AM RECEIVING CLERK): Clinically euthyroid, doing well. If she were to start on hormonal therapy for other issues, then we would need to recheck her thyroid accordingly Assessment & Plan (11/25/2019 7:42 AM CDT): Clinically euthyroid and stable at this point Assessment & Plan (09/19/2019 11:39 AM CDT): In the setting of multiple medical problems, this is difficult to assess clinically but she is symptomatically better since we recently increased her thyroid medication Hypercalcemia 10/07/2018 Assessment & Plan (10/07/2018 4:53 PM CDT): Most recent labs from October 04, 2018 indicated a calcium level that was elevated at 10.6. She has had no previous elevation of her calcium in the past. Will continue to monitor. If her next calcium remains elevated will order PTH intact for further evaluation. 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 Glucoses within a reasonable margin of safety and she is monitoring appropriately. Assessment & Plan (02/21/2019 2:25 PM RECEIVING CLERK): Glucoses within a good margin of safety, monitoring appropriately Assessment & Plan (10/07/2018 4:50 PM CDT): The patient has been working on lifestyle modifications. Her home glucose readings are stable. Her hemoglobin A1c was 6.3% on October 04, 2018. Continue to monitor. Multinodular thyroid 11/08/2017 Assessment & Plan (10/27/2023 7:38 PM CDT): No local symptoms and stable on current Rx. Assessment & Plan (11/11/2021 10:18 AM CDT): No local symptoms and need to adjust thyroid dose. Repeat thyroid ultrasound Assessment & Plan (09/19/2019 11:40 AM CDT): Symptoms of fullness under neck and history of bilateral nodules. We can get a follow-up thyroid ultrasound to evaluate Assessment & Plan (11/09/2017 3:20 PM CDT): Minimal local symptoms, but needs follow-up imaging Bronchitis 09/11/2017 Moderate persistent asthma with acute exacerbati on 09/07/2017 Assessment & Plan (09/07/2017 3:48 PM CDT): Asthma is unchanged. The patient is experiencing frequent daytime asthma symptoms. She is experiencing frequent nighttime asthma symptoms. Pt. Has her own Asthma plan that she follows. Very aware of her disease and s/s. Already increased her steroid Start Zithromycin Nephrolithiasis 06/13/2017 Assessment & Plan (03/02/2020 10:00 AM RECEIVING CLERK): Needs ongoing monitoring of vitamin-D status Left flank pain 06/13/2017 PTSD (post-traumatic stress disorder) 06/10/2017 Assessment & Plan (11/23/2017 9:37 AM CDT): Currently she is treating anxiety with clonazepam alone; no anti-depressant at this time. Outpatient follow-up. - Continue clonazepam Assessment & Plan (11/22/2017 9:34 AM CDT): Currently she is treating anxiety with clonazepam alone; no anti-depressant at this time. Outpatient follow-up. - Continue clonazepam Assessment & Plan (11/21/2017 9:11 AM CDT): Currently she is treating anxiety with clonazepam alone; no anti-depressant at this time. Outpatient follow-up. - Continue clonazepam Multiple drug allergies 06/10/2017 Assessment & Plan (11/23/2017 9:37 AM CDT): On admission, discussed with the patient, and due to her severe allergies (anaphylaxis) to multiple medications and Red 40 dye she prefers to take her home supply of medications. She will have her medications verified by pharmacy. This is to ensure her own safety due to differences in loom operator formulas. Assessment & Plan (11/22/2017 9:35 AM CDT): On admission, discussed with the patient, and due to her severe allergies (anaphylaxis) to multiple medications and Red 40 dye she prefers to take her home supply of medications. She will have her medications verified by pharmacy. This is to ensure her own safety due to differences in loom operator formulas. Assessment & Plan (11/21/2017 9:11 AM CDT): On admission, discussed with the patient, and due to her severe allergies (anaphylaxis) to multiple medications and Red 40 dye she prefers to take her home supply of medications. She will have her medications verified by pharmacy. This is to ensure her own safety due to differences in loom operator formulas. LLQ pain 02/26/2017 Assessment & Plan (02/26/2017 12:04 PM RECEIVING CLERK): We will proceed with transvaginal ultrasound to be completed at [facility]. Patient understands that if there is an ovarian/pelvic abnormality or if she experiences persistent pain she will need to follow up with her OBGYN. Hydrocodone was provided for p.r.n. use for her discomfort. She will use this sparingly. She was previously given tramadol by her OBGYN but is fearful of using this given her prior allergies. She has tolerated hydrocodone in the past without any ill side effect. Chronic fatigue 11/21/2016 Assessment & Plan (11/21/2016 3:33 PM CDT): Patient mentions that she had an intense session yesterday with her psychiatrist for PTSD. She states sometimes and sessions are difficult she is very tired and will sleep for 10-12 hours. She states she did sleep for 10-12 hours. But she does not feel like she is b ounced out of it like she would typically. She feels tired, fatigued, run down, worn out. She thinks something more may be going on and requests additional blood work today. We will obtain CMP as well as CBC. Urine will be submitted for urinalysis with reflex to microscopy and culture. The thyroid function studies will be obtained as well. Further direction pending these results. Dysuria 11/21/2016 Assessment & Plan (11/21/2016 3:47 PM CDT): Urine dip shows leukocytes and trace amount of blood in the urine. Noting she is nearing the end of her menstrual cycle. Will place her on empiric Macrobid - no prior history of allergic reaction noted. Urine specimen will be submitted for urinalysis with culture and sensitivity. Further direction pending these results. 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 Her last thyroid function test in July 2018 were within normal limits. Will continue same levothyroxine dose at this time. Will repeat thyroid function tests in 6-8 weeks. She is tapering off of Klonopin and feels that her requirements may change as her Klonopin does decreases. Assessment & Plan (07/11/2018 11:06 AM CDT): Clinically euthyroid, ongoing surveillance. Needs follow-up labs Assessment & Plan (01/25/2018 1:16 PM CDT): He should benefit from a slight increase in levothyroxine Assessment & Plan (11/30/2017 2:31 PM CDT): Clinically euthyroid, but she should take her levothyroxine early in the morning without other medications or breakfast, in order to stabilize absorption. She now takes levothyroxine 25 mcg 2 daily, since the 50 mg pills had dyes to which she may be allergic. We still need to work on seeing if we can get approval for Tirosint Assessment & Plan (11/23/2017 9:37 AM CDT): TSH is 0.3, free T4 normal - Continue synthroid 50 mcg daily. Assessment & Plan (11/22/2017 4:12 PM CDT): Continue synthroid 50 mcg daily Assessment & Plan (11/22/2017 9:34 AM CDT): TSH is 0.3, free T4 normal - Continue synthroid 50 mcg daily. Assessment & Plan (11/21/2017 9:10 AM CDT): TSH is 0.3, free T4 normal - Continue synthroid 50 mcg daily. Assessment & Plan (11/09/2017 3:20 PM CDT): Clinical thyroid status is variable, and very sensitive to medication. Because of her multiple food dye allergies, she may benefit greatly from changing to [employer] brand thyroid which does not contain artificial dyes. We need to restart her just at 25 mcg daily, and gradually adjust as tolerated Assessment & Plan (11/21/2016 3:31 PM CDT): Patient is concerned she may be showing symptoms of over replacement. She is awaiting lab orders from roll slicing machine tender. She is requesting we go ahead and draw these today: TSH and free T4. Further direction pending these results. Adrenal insufficiency 09/04/2016 Overview (09/08/2016): Adrenal insufficiency Assessment & Plan (05/08/2024 11:40 AM RECEIVING CLERK): She is adept at adjusting steroids to stresses, infections.Still tapering appropriately and adjusting insulin appropriately. Assessment & Plan (10/27/2023 7:39 PM CDT): She is adept at adjusting steroids to stresses, infections.Still tapering appropriately and adjusting insulin appropriately. Assessment & Plan (04/20/2023 7:37 PM RECEIVING CLERK): She is adept at adjusting steroids to stresses, infections.Still on stress- dosing of steroids, but tapering appropriately and adjusting insulin appropriately. Assessment & Plan (02/05/2023 11:15 AM CDT): -Taking Hydrocortisone -Has emergency Dexamethasone kit Assessment & Plan (10/14/2022 7:30 PM CDT): Still on stress-dosing of steroids, but tapering appropriately and adjusting insulin appropriately. Assessment & Plan (08/18/2022 12:32 PM CDT): -Taking Hydrocortisone -Has emergency Dexamethasone kit -She has after-hours phone number for the roll slicing machine tender weigher production -She has complaints of fatigue and muscular cramping. -Will check CMP and magnesium levels Assessment & Plan (05/18/2022 11:00 AM RECEIVING CLERK): Currently has required intercurrent stress dose steroids, gradually tapering down and clinically improved Assessment & Plan (02/08/2022 12:56 PM CDT): -Taking Hydrocortisone with dose adjustments per Dr. Pierson -She has after-hours phone number for the roll slicing machine tender weigher production and Dexamethasone emergency kit Assessment & Plan (11/11/2021 10:14 AM CDT): She is extremely knowledgeable and adapt in adjusting her hydrocortisone based on stress symptomatology. Assessment & Plan (08/09/2021 7:22 AM CDT): Clinically doing reasonably well right now, with gradually reducing steroids as tolerated. Some clinical stigmata of Milldale's, but clinically overall doing reasonably well right now Assessment & Plan (05/16/2021 12:01 PM RECEIVING CLERK): With recent COVID infection as well as a later allergic reaction, she has required higher doses of steroids, and needs to very gradually taper. She is very familiar with how to do this and has emergency dexamethasone, if needed. Assessment & Plan (02/14/2021 1:55 PM RECEIVING CLERK): -Taking Hydrocortisone with dose adjustments per Dr. Pierson -Needed stress doses this past weekend, but has not needed to take injection -She has after-hours phone number for the roll slicing machine tender weigher production Assessment & Plan (11/12/2020 3:19 PM CDT): Still needs some stress dosing from time to time, but very slowly tapering her medication as tolerated. Occasional allergic reactions requiring boosters Assessment & Plan (2020 12:07 PM CDT): Brittle, but she is adapting reasonably well with appropriate stress-dosing. Slightly Cushingoid, however, so would benefit from very slowly tapering hydrocortisone. The CGM appears to be helping demonstrate some of the glucocorticoid effect, as the morning glucoses tend to increase after her second hydrocortisone dose even if she does not eat. Bone density stable. Chronic cataracts, but also stable. Assessment & Plan (06/11/2020 10:45 AM RECEIVING CLERK): Overall pattern is reasonably stable. Unable to taper glucocorticoids during the spring allergy season due to occasional exacerbations. Assessment & Plan (03/02/2020 10:55 AM RECEIVING CLERK): She still has frequent episodes of symptomatic adrenal insufficiency, making her functionally disabled from a medical standpoint but she is able to adapt with her medication and now only rarely has to go to the emergency room. Her weight has been stable and recent bone density was okay Consider hormonal therapy instead of hysterectomy (without BSO) will at least make her estrogen cycle more predictable in relation to her adrenal management Chronic mild cataracts and stable, bone density stable Assessment & Plan (11/25/2019 7:42 AM CDT): She has a lot of other ongoing medical issues, so has to adjust her steroids very carefully. Overall, however, she is doing reasonably well. Assessment & Plan (09/19/2019 11:40 AM CDT): She still requires very high doses of steroids, and has difficulty tapering. Will do this very very slowly as tolerated. 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 She is gradually reducing her hydrocortisone as tolerated and maintains follow-up for eyes and other potential complications Assessment & Plan (12/04/2018 11:59 AM CDT): She has made significant clinical progress, particularly in the areas of managing steroid hormones and maintaining improved glucoses. She is able to manage times of stress with appropriate adjustments in medication. Although she seems to be doing quite well in supervising and protecting her children, this is in a controlled environment where she could adapt quickly and safely. On the other hand, I do not think that she is yet able to assume an employment/work environment where there would be a number of uncontrolled variables and potential need to quickly adjust therapy. The next slight taper in her hydrocortisone will likely be at the 04:00 dose so as to have a minimal effect on her sleep. DEXA bone density normal. Assessment & Plan (10/07/2018 4:52 PM CDT): The patient continues to use stress doses of Hydrocortisone. She is having difficulty with a tapering process has her Klonopin is also being tapered at this time. Recommend of slow gradual titration of her hydrocortisone to prevent any possibility of adrenal crisis. She verbalizes understanding. Discussed appropriate use of dexamethasone injection and she verbalizes understanding. Labs were reviewed from September 26, 2018 with stable chemistry. Assessment & Plan (07/11/2018 11:08 AM CDT): On steroids with appropriate stress dosing, tapering as tolerated. Needs follow- up DEXA bone density. Also, glucoses running a little high so we need to check her A1c to screen for steroid-induced diabetes Assessment & Plan (01/25/2018 1:21 PM CDT): Overall improved, but still cushingoid and gradually decreasing her hydrocortisone. We need to readjust her timing of her doses, however, to provide more during the earlier partc of the day. She has some improvement with DHEA, but we would first want to increase spironolactone and then see if we can increase the DHEA dose a little. Assessment & Plan (11/30/2017 2:30 PM CDT): A little better after recent hospitalization. However, she may benefit by increasing prednisone to 2 mg early in the morning, decreasing the 730 hydrocortisone dose. Also would add DHEA at 10 mg daily in the mornings. Assessment & Plan (11/23/2017 9:36 AM CDT): On admission, patient had known history of adrenal insufficiency that was difficult to wean off corticosteroids. After talking with Dr Pierson, she presented to ED with progressive weakness, fatigue and confusion. Her prednisone had been adjusted on outpatient basis without improvement in her symptoms. She was seen by her primary roll slicing machine tender Dr. Pierson in the ED and he recommended hydrocortisone 50 mg IV q 6 h. She noted subjective improvement after the first dose. Endocrinology followed along throughout her stay and IV hydrocortisone was decreased to 25 mg q6 hours. She was then switched to PO hydrocortisone and is agreeable to discharge on her hydrocortisone regimen. - Daily hydrocortisone regimen: 20 mg HC at 0800, 10 mg HC at 1200, 7.5 mg HC at 1600, and 2.5mg HC at 2000 - Endocrine consulted, appreciate recs Assessment & Plan (11/22/2017 4:19 PM CDT): Patient with iatrogenic adrenal insufficiency in setting of chronic steroid use for her severe allergic response. Her steroid taper is managed by Dr. Pierson in endocrine clinic. Taper has been challenging. She states that she is a fast metabolizer of hydrocortisone and that effect only lasts ~4 hours. - Transition patient to oral hydrocortisone today. Would dose 10 mg @ 4 pm today then 5 mg @ 8 pm. - Tomorrow recommend the following regimen of hydrocortisone PO 20 mg at 8 am 10 mg at noon 7.5 mg at 4 pm 2.5 mg at 8 pm - will discuss this as a potential discharge regimen with Dr. Pierson Assessment & Plan (11/22/2017 9:33 AM CDT): Her prednisone has been adjusted without improvement in her symptoms. She was seen by her primary roll slicing machine tender Dr. Pierson in the ED and he recommended hydrocortisone 50 mg IV q 6 h. She noted subjective improvement after the first dose. Endocrine consulted and will follow along - Decrease hydrocortisone 25mg q6 - Endocrine consulted, appreciate recs Assessment & Plan (11/21/2017 9:11 AM CDT): Her prednisone has been adjusted without improvement in her symptoms. She was seen by her primary roll slicing machine tender Dr. Pierson in the ED and he recommended hydrocortisone 50 mg IV q 6 h. She noted subjective improvement after the first dose. Endocrine consulted and will follow along - Continue hydrocortisone 50 - Endocrine consulted, appreciate recs Assessment & Plan (11/09/2017 3:31 PM CDT): Continues to be very symptomatic, and only very slowly able to taper steroids. Most likely she has difficulty in recovering her receptor availability and is increasingly sensitive to levothyroxine. At this point, we will very very slowly adjust her steroids as indicated. In the future, it may be reasonable to consider restarting low-dose DHEA, possibly along with spironolactone to avoid end-organ effects, but with so many other things going on we will not do this right now. 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 Hay fever 04/22/2014 Pleurodynia 03/13/2014 Shortness of breath 03/13/2014 Vitamin D deficiency 12/29/2013 Overview (07/15/2016): Vitamin D deficiency Assessment & Plan (05/08/2024 11:42 AM RECEIVING CLERK): Continue long-term supplement, particularly with glucocorticoid therapy Assessment & Plan (10/27/2023 7:35 PM CDT): Continue long-term supplement, particularly with glucocorticoid therapy Assessment & Plan (04/20/2023 7:38 PM RECEIVING CLERK): Continue long-term supplement, particularly with glucocorticoid therapy Assessment & Plan (10/14/2022 7:31 PM CDT): Continue long-term supplement, particularly with glucocorticoid therapy Assessment & Plan (05/18/2022 11:01 AM RECEIVING CLERK): Continue long-term supplement, particularly with glucocorticoid therapy Assessment & Plan (11/11/2021 10:15 AM CDT): Continue long-term supplement, particularly since she is requiring long-term steroids Assessment & Plan (08/09/2021 7:23 AM CDT): Continue long-term supplement. Recent level within target Assessment & Plan (05/16/2021 11:57 AM RECEIVING CLERK): Continue long-term supplement Assessment & Plan (02/14/2021 1:56 PM RECEIVING CLERK): -Continue current Vitamin D supplement -Repeat level Assessment & Plan (11/12/2020 3:20 PM CDT): Continue long-term supplement Assessment & Plan (2020 12:08 PM CDT): Continue chronic supplement Assessment & Plan (06/11/2020 10:51 AM RECEIVING CLERK): Also on chronic glucocorticoids. Continue chronic supplement. Recent level within target Assessment & Plan (03/02/2020 10:01 AM RECEIVING CLERK): On chronic supplement, but needs follow-up level particularly in the setting of a history of nephrolithiasis Assessment & Plan (11/25/2019 7:42 AM CDT): On steroids, needs to continue supplement as she is doing Assessment & Plan (09/19/2019 11:40 AM CDT): Recent level fine, continue long-term supplement Assessment & Plan (02/21/2019 2:26 PM RECEIVING CLERK): Continue ongoing supplement Assessment & Plan (12/04/2018 12:07 PM CDT): Continue current supplement Assessment & Plan (07/11/2018 11:07 AM CDT): On supplement, needs DEXA bone density Assessment & Plan (01/25/2018 1:16 PM CDT): Continue supplement Assessment & Plan (11/30/2017 2:29 PM CDT): Continue supplement Assessment & Plan (11/09/2017 3:20 PM CDT): On supplement, needs follow-up labs. Caution to avoid excessive replacement because of her history of nephrolithiasis Allergic state 12/23/2013 Intractable migraine with aura with status migra inosus 10/21/2013 Overview (07/15/2016): MIGRNE UNSP WO NTRC MGRN Assessment & Plan (02/26/2017 12:03 PM RECEIVING CLERK): Medication refilled for p.r.n. use for headache. She understands she should not use this concurrently with her hydrocodone. Assessment & Plan (01/03/2017 10:32 AM CDT): Patient notes recent exacerbation of migraine headaches after weaning off her Lexapro. Headaches are well controlled with p.r.n. Butalbital-acetaminophen. Patient will be out of town for several weeks. She is requesting a printed prescription for her to take with her should she run out of her current supply of medication. Script was handed directly to the patient. Pain of hand 10/08/2013 Asthma 08/23/2013 Overview (07/14/2016): ASTHMA NOS Assessment & Plan (06/11/2020 10:46 AM RECEIVING CLERK): Occasional exacerbations, requiring stress-dose steroids. Assessment & Plan (11/23/2017 9:36 AM CDT): Known history and remains free of wheezing on exam since admission. - Continue home inhalers and nebulizers. Assessment & Plan (11/22/2017 9:32 AM CDT): No wheezing on exam since admission. - Continue home inhalers and nebulizers. Assessment & Plan (11/21/2017 9:10 AM CDT): No wheezing on exam since admission. - Continue home inhalers and nebulizers. Carpal tunnel syndrome 07/02/2013 Tenosynovitis 06/16/2013 Extrinsic asthma 02/25/2013 Overview (07/14/2016): Allergy-induced asthma Seasonal allergic rhinitis 02/25/2013 Overview (07/14/2016): Seasonal allergies Pain of upper extremity 10/07/2012 Bronchial asthma 08/14/2012 Common migraine without aura 04/17/2012 Oral thrush Resolved Problems Problem Noted Date Diagnosed Date Resolved Date BMI 22.0-22.9, adult 02/26/2017 018 Encounter for IUD insertion 02/08/2017 11/08/2017 Vaginal candidiasis 11/15/2016 12/01/19 17 Assessment & Plan (11/21/2016 3:30 PM CDT): Improving with treatment. Assessment & Plan (11/15/2016 2:30 PM CDT): One time dose of Diflucan has been recommended. One refill provided if needed. The patient has tolerated this medication without any ill side effect in the past. She has strict instructions to contact the office if her symptoms do not resolve with treatment as expected. Multiple food allergies 04/17/2016 10/0 04/2020 Assessment & Plan (11/23/2017 9:37 AM CDT): Patient to supply her own food. Epi IM if needed for anaphylaxis. Assessment & Plan (11/22/2017 9:34 AM CDT): Patient to supply her own food. Epi IM if needed for anaphylaxis. Assessment & Plan (11/20/2017 10:58 PM CDT): Patient to supply her own food. Epi IM if needed for anaphylaxis. Concussion without loss of c onsciousness, initial encounter 01/12/2016 11/20/2017 Overview (07/15/2016): Concussion with no loss of consciousness Fever 10/20/2015 10/09/2016 Overview (07/15/2016): Fever Sinusitis 09/27/2015 11/20/2017 Overview (07/15/2016): Sinusitis Anaphylaxis 02/09/2014 11/30/2017 Overview (07/20/2017): Description: Previously thought to be idiopathic, but triggers identified as Red 40 and PCMX antimicrobial in soap Encounters Date Type Department Care Team Description 06/19/2024 Orders Only [facility] Endocrinology Metabolism and Lipid [address] [facility] Medicine [address] [place] [address] [place] [address] Geovanna Gan RMA Acquired hypothyroidism (Primary Dx) 06/18/2024 8:40 AM CDT - 06/18/2024 11:59 PM CDT Hospital Encounter [facility] - Breast Imaging [address] [place] [address] [address] [place] [address] Family history of breast cancer; Abnormal MRI, breast; Encounter for screening mammogram for malignant neoplasm of breast Discharge Disposition: Discharge to home or self care 06/18/2024 8:00 AM CDT Office Visit [facility] Surgery [address] [facility] [address] [place] [address] Maria Guadalupe Maya NP Encounter for screening mammogram for malignant neoplasm of breast (Primary Dx); Family history of breast cancer; At high risk for breast cancer 06/17/2024 Orders Only [facility] Endocrinology Metabolism and Lipid [address] [facility] Medicine 13th [place] [address] [place] [address] Geovanna Gan RMA Acquired hypothyroidism (Primary Dx) 06/16/2024 3:30 PM CDT Office Visit [facility] Allergy and Immunology [address] [facility] [address] [place] [address] Iamni Sosa MD Moderate persistent asthma without complication (Primary Dx); Seasonal allergic rhinitis due to pollen; Urticaria; Anaphylaxis, subsequent encounter 06/04/2024 Telephone [facility] Allergy and Immunology [address] [facility] [address] [place] [phone] Esther Jay RN Ipratropium-Albuterol Prior Auth 05/26/2024 1:17 PM RECEIVING CLERK - 05/26/2024 11:59 PM RECEIVING CLERK Hospital Encounter [facility] 1 [place] [address] Persistent cough Discharge Disposition: Discharge to home or self care 05/26/2024 Orders Only [facility] Allergy and Immunology [address] [facility] [address] [place] [address] Imani Sosa MD Persistent cough (Primary Dx) 05/24/2024 Telephone [facility] Allergy and Immunology [facility] [facility] [address] [place] [address] Liu Mayer MD 05/13/2024 3:40 PM RECEIVING CLERK Office Visit [facility] Rheumatology [address] [place] [address] [address] [place] [address] Belinda Chadwick MD Autoimmune thyroiditis (Primary Dx); Tenosynovitis 05/13/2024 Telephone [facility] Surgery [address] [facility] Floor 8 [place] [phone] Maria Guadalupe Maya NP Scheduling Appointments 05/13/2024 Orders Only [address] [address] Eli Salas MD 05/08/2024 11:00 AM RECEIVING CLERK Telemedicine [facility] Endocrinology Metabolism and Lipid [facility] Advanced Medicine 13th [place] [address] [place] [phone] Sarah Pierson MD Adrenal insufficiency (Primary Dx); Acquired hypothyroidism; Type 2 diabetes mellitus without complication, with long-term current use of insulin (HCC); Hyperlipidemia, unspecified hyperlipidemia type; Vitamin D deficiency 05/05/2024 Orders Only [facility] 1 [place] [address] Eli Salas MD 05/01/2024 Orders Only [facility] Endocrinology Metabolism and Lipid [address] [facility] 13th [place] [address] [place] [phone] Geovanna Gan RMA Adrenal insufficiency; Acquired hypothyroidism; Multinodular thyroid 05/01/2024 Orders Only [facility] Endocrinology Metabolism and Lipid [address] [facility] 13th [place] [address] [place] [phone] Geovanna Gan RMA Acquired hypothyroidism (Primary Dx) 04/30/2024 Telephone [facility]s [facility] Gyne[facility] Clinic [address] [facility] 3rd Floor [address] [place] [phone] Jerrica Kapoor RN 04/22/2024 Telephone [facility] Surgery [address] [facility] Floor 5 [place] [phone] Sondra Granger NP Medical Question/Miscellaneou s 04/17/2024 5:21 PM RECEIVING CLERK - 04/17/2024 11:59 PM RECEIVING CLERK Hospital Encounter [address] [address] Health care maintenance Discharge Disposition: Discharge to home or self care 04/17/2024 12:30 PM RECEIVING CLERK Office Visit [facility]s [facility]necology Clinic [address] [facility] 3rd Floor [address] [place] [phone] Eli Salas MD Health care maintenance (Primary Dx) from Last 3 Months Immunizations Immunization Administration Dates Next Due Influenza, Quadrivalent, Hien l Culture-based MDCK, Antibiotic Free, Intramuscular 01/16/2019 Influenza, Quadrivalent, Spl it, Intramuscular 01/22/2018 Influenza, Quadrivalent, Spl it, Preservative Free, Intramuscular 02/18/2021,01/27/2020 Influenza, Trivalent, Cell Culture-based MDCK, Preservative Free, Antibiotic Free, Intramuscular 12/07/2023 Influenza, Trivalent, IM (MDV) 02/02/2015,2012 Influenza, Trivalent, Preser vative Free, Intramuscular 02/10/2015,02/09/2014,01/07/2014,04/09 Influenza, Trivalent, Recomb inant, Egg Free, Preservative Free, Antibiotic Free, IM (FLUBLOK) 01/07/2014 Influenza, Unspecified 03/01/2022 Pfizer SARS-CoV-2 Monovalent Vaccination (12+ Yrs) PURPLE 12/10/2020 Pfizer Sars-Cov-2 Bivalent V accination (12+ YRS) 12/07/2023 Pneumococcal Conjugate PCV 13 03/11/2015 Pneumococcal Polysaccharide PPV23 04/12/2011,04/2011 TD Preservative Free 04/09/2011 Td, adsorbed 04/09/2011 Tdap 09/30/2016,01/26/2013 Surgical History Surgery Date Site/Laterality Comments OTHER SURGICAL HISTORY atherscopy x 2 on shoulders SECTION section OTHER SURGICAL HISTORY 04/09/2007 - 04/08/2008 Right Right shoulder trauma: arthroscopy OTHER SURGICAL HISTORY 04/09/2008 - 04/08/2009 : OTHER SURGICAL HISTORY 04/09/2012 - 04/08/2013 : OTHER SURGICAL HISTORY trauma: bilateral shoulder surgery OTHER SURGICAL HISTORY 04/09/2012 - 04/08/2013 er epi pen SECTION 04/09/2012 - 04/08/2013 section OTHER SURGICAL HISTORY 04/09/2013 - 04/08/2014 Anaphylaxis-food allergy : Medical Management OTHER SURGICAL HISTORY [facility] ER chocholate allery OTHER SURGICAL HISTORY 04/09/2013 - 04/08/2014 allergic reaction to cream soda: epi pen OTHER SURGICAL HISTORY 04/09/2013 - 04/08/2014 cough, shortness of breath, chest pain: Medical Management OTHER SURGICAL HISTORY 04/09/2014 - 04/08/2015 allergy reaction: Medical Management OTHER SURGICAL HISTORY 04/09/2014 - 04/08/2015 allergic reaction : Medical Management OTHER SURGICAL HISTORY 04/09/2014 - 04/08/2015 allergy reaction : Medical Management OTHER SURGICAL HISTORY 04/09/2014 - 04/08/2015 allergic reaction red dye : Medical Management OTHER SURGICAL HISTORY nephrolithiasis: tiny left kidney stone. SECTION 04/09/2008 - 04/08/2009 : SHOULDER ARTHROSCOPY 04/09/2005 - 04/08/2006 Left Left shoulder trauma: arthroscopy ABDOMINAL SURGERY 2 c sections Medical History Medical History Date Comments Asthma Asthma Hx Other Medical Extensive medic aton allergies Hx Other Medical 2011 miscarriage in december Hx Other Medical 2008 ; Comm ents: [place], preeclampsia/oligohydramnios; Outcome: 38 week 7 lb(s) 6 oz Female Hx Other Medical allergic reacti on; Comments: peanut allergy-had to use epi pen Hx Other Medical [facility] Allergic Reaction Hx Other Medical Anaphylaxis-marek d allergy; Outcome: successful Hx Other Medical allergic reacti on to cream soda Hx Other Medical cough, shortnes s of breath, chest pain Hx Other Medical allergic reacti on to hamburger buns Hx Other Medical allergy reactio n Hx Other Medical allergic reacti on Hx Other Medical allergy reactio n; Outcome: improved Hx Other Medical allergic reacti on to antibody injection Hx Other Medical allergic reacti on red dye; Comments: treated and released; Outcome: successful Hx Other Medical nephrolithiasis ; Comments: AAW 04/09/2015 - Hx Other Medical concussion from head hitting head on freexer door Hx Other Medical neck pain Ulcer ulcer; Comments: too much ibuprofen. 2008. 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 BCRA testing negative. Hyperlipidemia Mother Hyperlipidemi a; Asthma Other Asthma; Stomach cancer Paternal Grandfather cance r, gastric; Asthma Sister 1 Asthma; Thyroid disease Sister 2 Thyroid diso rder; Ovarian cancer Neg Hx Thyroid cancer Neg Hx Relation Name Status Comments Brother 1 Alive Brother 2 Father Alive Maternal Grandfather Maternal Grandmother Alive Maternal Great-Grandmother Mother Alive Other Paternal Grandfather Sister 1 Sister 2 Social History Tobacco Use Types Packs/Day Years Used Date Smoking Tobacco: Never Passive Smoke Exposure: Past Smokeless Tobacco: Never Tobacco Cessation:Counseling Given: Not Answered Alcohol Use Standard Drinks/Week Comments No 0 (1 standard drink = 0.6 oz pur e alcohol) AUDIT-C Answer Date Recorded Q1: How often do you have a drink containing alcohol? Never 11/28/2023 Q2: How many drinks containi ng alcohol do you have on a typical day when you are drinking? Patient does not drink Q3: How often do you have si x or more drinks on one occasion? Never 11/28/2023 Hunger Vital Sign Answer Date Recorded Within the past 12 months, y ou worried that your food would run out before you got the money to buy more. Never true 11/28/19 24 Within the past 12 months, t he food you bought just didn't last and you didn't have money to get more. Never true 11/28/2023 Comments No Sex and Gender Information Value Date Recorded Sex Assigned at Not on file Legal Sex Female 10:17 AM RECEIVING CLERK Gender Identity Not on file Sexual Orientation Not on file Obstetrics History Para Term AB IAB SAB Ectopic Multiple Livin g Live Births 3 2 2 1 1 2 2 Date Outcome GA Total Labor Labor/2nd/3rd Weight Sex Type Anes PTL Alaina A1 A5 Name Clin 11/10 Term 38w 0d 3.345 kg (7 lb 6 oz) F CS-LT ranv Spinal N Livin g [place] Complications:Pre eclampsia/ Eclampsia 2011 SAB SAB 01/26 Term 39w 0d 4.026 kg (8 lb 14 oz) M CS-LT ranv Spinal Y Livin g José Complications:Pre eclampsia/ Eclampsia Last Filed Vital Signs Vital Sign Reading Time Taken Comments Blood Pressure 125/84 06/16/2024 3:41 PM CDT Pulse 101 06/16/2024 3:41 PM CDT Temperature 36.2 C (97.1 F) 05/13/2024 3:35 PM RECEIVING CLERK Respiratory Rate 18 04/17/2024 12:39 PM RECEIVING CLERK Oxygen Saturation 99% 06/16/2024 3:41 PM CDT Inhaled Oxygen Concentration - - Weight 73.5 kg (162 lb) 06/18/2024 8:13 AM CDT Height 157.5 cm (5' 2 ) 06/18/2024 8:13 AM CDT Body Mass Index 29.63 06/18/2024 8:13 AM CDT Plan of Treatment Health Maintenance Due Date Last Done Comments Dilated Eye Exam 1982 Foot Exam 1982 Varicella Vaccines (1 of 2 - 13+ 2-dose series) 09/02/1995 Hepatitis B Screening 2000 Depression Screening 09/07/2018 09/07/2017, 03/09/2017, 02/26/2017, Additional history exists Regular Well Visit/Exam 18-64 03/24/2023 03/24/2022, 01/23/2022, 02/18/2021, Additional history exists eGFR 12/21/2023 12/20/2022, 1 05/2022, 05/19/2022, Additional history exists Hemoglobin A1C 08/19/2024 02/20/2024, 05/0 04/2023, 04/26/2023, Additional history exists Albumin Creatinine Ratio, Urine 12/05/2024 12/06/2023, 02/08/2022, 02/17/2021 Lipid Panel 12/05/2024 12/06/2023, 1105/2021, 02/17/2021, Additional history exists Cervical Cancer Screening 04/17/2025 04/17/2024, Breast Cancer Screening-Mammogram 06/18/2025 06/18/2024, 04/18/2023, 04/18/2023, Additional history exists Osteoporosis Screening-Bone Density Scan 11/27/2025 11/28/2023, 12/05/2021, 10/31/2019, Additional history exists DTaP/Tdap/Td Vaccine (3 - Td or Tdap) 09/30/2026 09/30/2016, 01/26/2013, 04/09/2011, Additional history exists Pneumococcal vaccine <65 (3 of 3 - PCV20 or PCV21) 2032 03/11/2015, 04/12/2011, 04/09/2011 Hepatitis C Screening Completed 04/18/2018 Covid-19 Vaccine Completed 12/07/2023, , 12/23/2021, Additional history exists Influenza Vaccine Discontinued 12/07/2023, , 02/18/2021, Additional history exists HPV Vaccines Aged Out No longer eligi ble based on patient's age to complete this topic Procedures Procedure Name Priority Date/Time Associated Diagnosis Comments SCREENING MAMMOGRAM BILATERAL W CHAKA Schedule Routine, Read Routine (OP Routine) 06/18/2024 9:14 AM CDT Family history of breast cancer Abnormal MRI, breast Encounter for screening mammogram for malignant neoplasm of breast XR CHEST PA LATERAL 2 VIEWS Schedule Routine, Read Routine (OP Routine) 05/26/2024 1:30 PM RECEIVING CLERK Persistent cough PAP WITH REFLEX TO HIGH RISK HPV Routine 04/17/2024 1:26 PM RECEIVING CLERK Health care maintenance THINPREP PROCESSING (MOLECULAR COMPONENT) Routine 04/17/2024 9:00 AM RECEIVING CLERK POCT HEMOGLOBIN A1C Routine 02/20/2024 11:13 AM RECEIVING CLERK Type 2 diabetes mellitus without complication, with long-term current use of insulin (HCC) LIPID PANEL Routine 12/06/2023 8:29 AM CDT Type 2 diabetes mellitus without complication, with long-term current use of insulin (HCC) ALBUMIN CREATININE RATIO, URINE Routine 12/06/2023 8:29 AM CDT Type 2 diabetes mellitus without complication, with long-term current use of insulin (HCC) DEXA AXIAL SKELETON BONE DENSITY 1 OR MORE SITES Schedule Routine, Read Routine (OP Routine) 11/28/2023 10:35 AM CDT Adrenal insufficiency Vitamin D deficiency pen[facility] (current) use of systemic steroids EGFR Routine 12/20/2022 9:35 AM CDT Adrenal insufficiency Type 2 diabetes mellitus without complication, with long-term current use of insulin (HCC) HEPATITIS C ANTIBODY Routine 04/18/2018 12:24 PM RECEIVING CLERK from Last 3 Months or Most Recently Relevant to Health Maintenance Results * Screening Mammogram Bilateral W Chaka (06/18/2024 9:14 AM CDT) Anatomical Region Laterality Modality Breast Bilateral Mammography Narrative 06/18/2024 2:18 PM CDT Mammogram Technique: Bilateral Digital Breast Tomosynthesis, Bilateral C-view 2D Screening mammogram. Views obtained: bilateral craniocaudal and bilateral mediolateral oblique. Computer Aided Detection was performed. Mammogram Findings: The present examination has been compared to prior imaging studies performed at [facility] on 09/30/2021, 07/05/2022 and 04/18/2023. There are scattered areas of fibroglandular density. There is no suspicious abnormality in either breast. Impression: There is no mammographic evidence of malignancy. Annual screening mammography is recommended. OVERALL FINAL ASSESSMENT: BI-RADS CATEGORY 1: Negative. Procedure Note Jennifer Almazan MD - 06/18/2024 Mammogram Technique: Bilateral Digital Breast Tomosynthesis, Bilateral C-view 2D Screening mammogram. Views obtained: bilateral craniocaudal and bilateral mediolateral oblique. Computer Aided Detection was performed. Mammogram Findings: The present examination has been compared to prior imaging studies performed at [facility] on 09/30/2021, 07/05/2022 and 04/18/2023. There are scattered areas of fibroglandular density. There is no suspicious abnormality in either breast. Impression: There is no mammographic evidence of malignancy. Annual screening mammography is recommended. OVERALL FINAL ASSESSMENT: BI-RADS CATEGORY 1: Negative. Maria Guadalupe Maya NP IMG MAMMO PROCEDURES Final Res ult * X-ray chest 2 views (05/26/2024 1:30 PM RECEIVING CLERK) Anatomical Region Laterality Modality Body, Chest N/A Computed Radiogr aphy 05/29/2024 8:12 AM RECEIVING CLERK Narrative 05/29/2024 8:14 AM RECEIVING CLERK EXAM DESCRIPTION: XR CHEST PA LATERAL 2 VIEWS REASON FOR STUDY: Cough Coughing, wheezing, sob x 1 week HX of asthma Nonsmoker TECHNIQUE: Frontal and lateral radiographic view(s) of the chest. COMPARISON: 04/28/2022. FINDINGS: LUNGS: No focal opacity, pleural effusion, or pneumothorax. HEART/MEDIASTINUM: Cardiac silhouette normal in size. Mediastinal and hilar contours appear normal. LINES/TUBES: None. BONES: No acute osseous abnormality. IMPRESSION: No acute cardiopulmonary abnormality. THIS IS AN ELECTRONICALLY VERIFIED FINAL REPORT 05/29/2024 8:14 AM - Electronically signed by Jozef Light M.D. CH: TSERING Report ID: [id number] Reading Location: [id number] Procedure Note Jozef Light Jr., MD - 05/29/2024 EXAM DESCRIPTION: XR CHEST PA LATERAL 2 VIEWS REASON FOR STUDY: Cough Coughing, wheezing, sob x 1 week HX of asthma Nonsmoker TECHNIQUE: Frontal and lateral radiographic view(s) of the chest. COMPARISON: 04/28/2022. FINDINGS: LUNGS: No focal opacity, pleural effusion, or pneumothorax. HEART/MEDIASTINUM: Cardiac silhouette normal in size. Mediastinal andhilar contours appear normal. LINES/TUBES: None. BONES: No acute osseous abnormality. IMPRESSION: No acute cardiopulmonary abnormality. THIS IS AN ELECTRONICALLY VERIFIED FINAL REPORT 05/29/2024 8:14 AM - Electronically signed by Jozef Light M.D. CH: CH Report ID: [id number] Reading Location: [id number] us Imani Sosa MD IMG XR PROCEDURES Final Res ult * Pap with reflex to High Risk HPV and Genotyping (Cytology Component) (04/17/2024 1:26 PM RECEIVING CLERK) Thin prep (Pap test) 04/17/2024 1:26 PM RECEIVING CLERK 04/17/2024 4:57 PM RECEIVING CLERK Narrative PATHOLOGY [facility] - 04/22/2024 3:52 PM RECEIVING CLERK EPIC results best viewed via link to PDF [facility] [place] [address] Note to Patients: This report may contain a detailed description of human tissue sent by a health care provider to the laboratory for pathologic evaluation. The content of this report is essential for diagnosis and may provide important critical findings. This information may be unfamiliar to patients to review without a medical professional present. It is advised that the patient review this report in the presence of a health care provider who can answer questions and explain the details. CYTOPATHOLOGY REPORT FINAL Patient Name: PAIGE ABARCA Gender: F : 1980 (Age: 43) Address: [address] [place] [id number] Hospital #: [id number] Service: UNKNOWN Location: Patient Type: [facility] SPECIMEN Taken: 04/17/2024 Received: 04/17/2024 Accessioned: 04/17/2024 Reported: 04/22/2024 Physician(s): Eli Salas M.D. FINAL INTERPRETATION SOURCE OF SPECIMEN Liquid based Thin Prep pap with Reflex HPV: STATEMENT OF ADEQUACY - Unsatisfactory specimen - Specimen processed and evaluated, but unsatisfactory for evaluation due to sparsely cellular sample - Cytolysis present [facility]/04/22/2024 15:52 CLARISSE Stern (ASCP) Report Electronically Reviewed and Signed Out By CLARISSE Sharma(ASCP) 04/22/2024 15:52:34 Cervicovaginal Cytology (Pap Test) Disclaimer: The Pap test is a screening test used to detect cervical cancer and its precursors; it is not a diagnostic procedure. False negative and false positive results do occur. Pap test results should be interpreted in the context of pertinent clinical information and biopsy results as indicated. [facility] Clinical Laboratory Improvement Amendments (CLIA) mandate that cytologic and histologic results be correlated for laboratory construction quality control manager & improvement standards. FOR ALL HIGH-GRADE CASES we request submission of follow-up histological material and/or reports that have not been previously provided so that we may fulfill said required standards. Gross Description A. Liquid based Thin Prep pap with Reflex HPV: Cervical/vaginal - Screening ThinPrep Clinical Diagnosis and History Last Menstrual Period: 2021 The patient is a 43 year old female with screening. Report Images and scanned documents, if included only viewable in PDF version The performance characteristics of some immunohistochemical stains, in-situ hybridization and fluorescence in-situ hybridization tests and immunophenotyping by flow cytometry cited in this report (if any) were determined by the Surgical Pathology Department at [facility] as part of an ongoing water quality manager program and in compliance with federally mandated regulations drawn from the Clinical Laboratory Improvement Act of 1988 (CLIA '88). Some of these tests rely on the use of analyte specific reagents and are subject to specific labeling requirements by the US Food and Drug Administration. Such diagnostic tests may only be performed in a facility that is certified by the Department of Health and Human Services as a high complexity laboratory under CLIA '88. The FDA has determined that such clearance or approval is not necessary. This test is used for clinical purposes. It should not be regarded as investigational or for research. Nevertheless, federal rules concerning the medical use of analyte specific reagents require that the following disclaimer be attached to the report: This test was developed and its performance characteristics determined by the Surgical Pathology Department of [facility]. It has not been cleared or approved by the U. S. Food and Drug Administration. Eli Salas MD LAB CYTOLOGY ORDERABLES Fi nal Result PATHOLOGY [facility] 3rd Floor [place], [place] [phone] * ThinPrep processing (Molecular component) (04/17/2024 9:00 AM RECEIVING CLERK) ThinPrep processing (Molecular component) Specimen received for processing. [facility] Endocervical 04/17/2024 9:00 AM RECEIVING CLERK 04/21/2024 9:00 AM RECEIVING CLERK Eli Salas MD LAB BODY FLUIDS AND STOOLS ORDERABLES Final Result CHRISTI MCMAHON [facility] Department [place] [address] [facility] * POCT hemoglobin A1c (02/20/2024 11:13 AM RECEIVING CLERK) Hemoglobin A1C, POC 6.6 4.0 - 5.6 % Blood 02/20/2024 11:1 3 AM RECEIVING CLERK Tova Hanna NP POINT OF CARE TEST ORDE RABLES Final Result * Albumin Creatinine Ratio, Urine (12/06/2023 8:29 AM CDT) Pathologist [facility] Albumin Ur <12.0 mg/L Comment: Interpretive Data No reference range established. Current interpretive data was last revised 2018. Testing performed by: [facility], [address] [place] [address]., [id number] Creatinine Ur 51.9 mg/dL CHRISTI BA (JESSICA) Comment: Interpretive Data No reference range established. Current interpretive data was last revised 2018. Testing performed by: [address] [address] Albumin Creatinine Ratio, Ur <23 1 - 29 mg/g CHRISTI BA (JESSICA) Comment:Testing performed by : [address] [address] Urine 12/06/2023 8:29 AM CDT 12/06/2023 11:00 AM CDT Tova Hanna NP LAB URINE ORDERABLES Fi nal Result CHRISTI BA (JESSICA) [facility] Department [place] [address] * (ABNORMAL) Lipid panel (12/06/2023 8:29 AM CDT) Cholesterol 231(H) 30 - 199 mg/dL Comment: Interpretive Data Ages < or = 19 years Acceptable: <170 mg/dL Borderline high: 170-199 mg/dL High: >or= 200 mg/dL Ages > or = 20 years Desirable: <200 mg/dL Borderline high: 200-239 mg/dL High: >or= 240 mg/dL Literature References: 1. Expert Panel on Integrated Guidelines for Cardiovascular Health and Risk Reduction in Children and Adolescents. Pediatrics 2011;128:S213 2. NCEP Expert Panel. Circulation 2004;110:227 Current Interpretive Data was last revised on 2017. Triglycerides 108 <=149 mg/dL CHRISTI BA (JESSICA) Comment: Interpretive Data Ages < or = 9 years Acceptable: <75 mg/dL Borderline high: 75-99 mg/dL High: >or= 100 mg/dL Ages 10 to 20 years Acceptable: <90 mg/dL Borderline high: 90-129 mg/dL High: >or= 130 mg/dL Ages > or = 20 years Desirable: <150 mg/dL Borderline high: 150-199 mg/dL High: 200-499 mg/dL Very high: >or= 499 mg/dL Literature References: 1. Expert Panel on Integrated Guidelines for Cardiovascular Health and Risk Reduction in Children and Adolescents. Pediatrics 2011;128:S213 2. NCEP Expert Panel. Circulation 2004;110:227 Current Interpretive Data was last revised on 2017. HDL 71 >=40 mg/dL CHRISTI BA (JESSICA) Comment: Interpretive Data Ages < or = 19 years Acceptable: >45 mg/dL Borderline low: 40-45 mg/dL Low: <40 mg/dL Ages > or = 20 years Desirable: >or= 60 mg/dL Low: <40 mg/dL Literature References: 1. Expert Panel on Integrated Guidelines for Cardiovascular Health and Risk Reduction in Children and Adolescents. Pediatrics 2011;128:S213 2. NCEP Expert Panel. Circulation 2004;110:227 Current Interpretive Data was last revised on 2017. LDL, calculated 141(H) <=129 mg/dL [facility]STI BA (JESSICA) Comment: Interpretive Data Ages < or = 19 years Acceptable: <110 mg/dL Borderline high: 110-129 mg/dL High: >or= 130 mg/dL Ages > or = 20 years Optimal: <100 mg/dL Near optimal: 100-129 mg/dL Borderline high: 130-159 mg/dL High: >160 mg/dL Calculated using the Neel LDL-C estimating equation. This equation was implemented on 2023. Prior to this date LDL-C was estimated using the Friedewald equation. Literature References: 1. Expert Panel on Integrated Guidelines for Cardiovascular Health and Risk Reduction in Children and Adolescents. Pediatrics 2011;128:S213 2. NCEP Expert Panel. Circulation 2004;110:227 3. Neel Cash et al. CM Cardiol. 2020 August 07;5(5):540-548. doi: [email or web address] Current Interpretive Data was last revised on 2023. Non-HDL Cholesterol 160 mg/dL [facility]RISTI TORRES) Comment: Interpretive Data Ages < or = 19 years Acceptable: <120 mg/dL Borderline high: 120-144 mg/dL High: >145 mg/dL Ages > or = 20 years When triglycerides are >200 mg/dL, Non-HDL cholesterol is a secondary target of therapy with treatment goals that are 30 mg/dL greater than the LDL cholesterol target. Literature References: 1. Expert Panel on Integrated Guidelines for Cardiovascular Health and Risk Reduction in Children and Adolescents. Pediatrics 2011;128:S213 2. NCEP Expert Panel. Circulation 2004;110:227 Current Interpretive Data was last revised on 2017. Chol/HDL ratio 3 TRINI BA (JESSICA) Blood 12/06/2023 8:29 AM CDT 12/06/2023 9:32 AM CDT Narrative [facility]ST[facility] BA (JESSICA) - 12/06/2023 10:11 AM CDT These lab test should be done fasting. This means do not eat or drink for at least 12 hours prior to getting your blood drawn. us Tova Hanna NP LAB BLOOD ORDERABLES nal Result [facility]STI TORRES) 1 [facility] Department [place] [address] * Dexa Axial Skeleton Bone Density 1 or 2 Site (11/28/2023 10:35 AM CDT) Anatomical Region Laterality Modality Body N/A Radiographic Elizabeth ging Narrative 11/28/2023 10:58 AM CDT Patient Name: Paige Abarca Date of : 1980 Date of scan: 11/28/2023 Bone mineral density was performed on a [employer] Discovery Densitometer. Based on machine cross-calibration and precision studies the least significant changes of this densitometer is 0.024 g/cm2 at the spine, 0.020 g/cm2 at the total proximal femur, and 0.014g/cm2 at the forearm. HISTORY: This is a 43 y.o. postmenopausal female with a history of thyroid disease and vitamin D deficiency. She reports that she has never smoked. She has been exposed to tobacco smoke. She has never used smokeless tobacco. Currently on treatment with calcium, vitamin D, glucocorticoids, and thyroid hormone and current complaint of back pain and neck pain. INDICATIONS: Menopause status, treatment monitoring, vitamin D deficiency, and currently on 42.5 mg of glucocorticoids for the past 8 year(s). FINDINGS: BONE MINERAL DENSITY OF THE LUMBAR SPINE Bone Mineral Density (BMD) of the lumbar spine was measured from L1-L4 and the average density was calculated to be 0.932 gm/cm2. This corresponds to a T-score (standard deviations from the mean of young adults) of -1.0. When compared to the previous study of 12/05/21 there has been a -0.052 gm/cm (-5.3%) decrease in bone density that is considered significant. BONE MINERAL DENSITY OF THE PROXIMAL FEMUR Bone Mineral Density (BMD) of the left hip total was found to be 0.955 gm/cm2. This corresponds to a T-score standard deviations from the mean of young adults of 0.1. Femoral neck is 0.838 gm/cm2 with a T-score (standard deviations from the mean of young adults) of -0.1. When compared to the previous study of 12/05/21 there has been a -0.022 gm/cm (-2.3%) decrease in bone density that is considered significant. SUMMARY: Bone mineral density is near the young adult normal mean with no increased risk for fracture. There has been a significant decrease in bone density since previous measurement. ADDITIONAL COMMENTS: Postmenopausal Women and Men Over 50: Diagnostic criteria: Osteoporosis: BMD at or below -2.5 T-score; Osteopenia (low bone mass): BMD between -1.0 and -2.5 T-score. If the patient has a history of a fragility fracture, a fracture that occurred with trauma equivalent to a fall from a standing position or less, then the diagnosis is osteoporosis regardless of bone density. The history and data sections of the bone mineral density scan were prepared by Kira Kelley who is accredited by the International Society of Clinical Densitometry. The overall patient assessment and scan interpretation were performed by Rosina Fajardo M.D. who is certified by the International Society of Clinical Densitometry. [id number] us Sarah Pierson MD IMG DXA PROCEDURES Final Re sult * eGFR (12/20/2022 9:35 AM CDT) eGFR 105 mL/min/1. 73 m2 CHRISTI BA (JESSICA) Comment: Interpretive Data Reference Interval Normal >/= 90 mL/min/1.73m2 Mildly decreased* 60 - 89 mL/min/1.73m2 Mildly to moderately decreased 45 - 59 mL/min/1.73m2 Moderately to severely decreased 30 - 44 mL/min/1.73m2 Severely decreased 15 - 29 mL/min/1.73m2 Kidney Failure < 15 mL/min/1.73m2 *Relative to young adult level Estimated glomerular filtration rate is determined by the 2020 CKD-EPI equation recommended by the National Kidney Foundation (A Unifying Approach to GFR Estimation: Recommendations of the NKF-ASK Task Force on Reassessing the Inclusion of Race in Diagnosing Kidney Disease, JASN 202). The CKD-EPI equation should not be used for patients with unstable renal function and has not been validated in children and those over 70. Current interpretive data was last reviewed 2021. Blood 12/20/2022 9:35 AM CDT 12/20/2022 10:42 AM CDT us Sarah Pierson MD LAB BLOOD ORDERABLES Final Result [facility]RISTI SEVERINON) 1 [facility] [place] [address] * Hepatitis C antibody (04/18/2018 12:24 PM RECEIVING CLERK) Hep C Ab Non-Reactiv e Non-Reactiv e [facility] Blood specimen (specimen) 04/18/2018 12:24 PM RECEIVING CLERK 04/18/2018 3:00 PM RECEIVING CLERK Narrative [facility] - 04/18/2018 4:17 PM RECEIVING CLERK Laura Pineda MD LAB MICROBIOLOGY - GENERAL ORDERABLES Final Result [facility] [address] Department [place] [address] from Last 3 Months or Most Recently Relevant to [place] [address] [facility] [place] [address] MEDICARE [facility] [place] [address] [facility] MEDICARE MEDICARE IDPA Advance Directives For more information, please contact: [phone] * Full Code (Latest Code Status on File) Date Activated Date Inactivated Comments 11/21/2017 1:39 AM 11/23/2017 4:26 PM * Full Code Date Activated Date Inactivated Comments 06/10/2017 12:31 AM 06/18/2017 8:48 PM Care Teams [employer] Relationship Specialty Start Date End Date Juan Lyons MD PCP - General Family Medicine 11/08/17 Sarah Pierson MD Referring Physician Endocrinology Diabetes & Metabolism 12/04/18 Silvia Alonso NP Nurse Practitioner 01/27/20 Steve Segovia MD Resident Obstetrics and Gynecology 02/17/20
--- OUTSIDE RECORDS SUMMARY | 2024-06-28 16:43 | XMS_ITS | Referral Summary ---
Author Organization [facility] Address [address] [place] [address] Care Team Providers Care Track Car Operator Name Role Phone Juan Lyons MD Primary Care Provider [phone] Sarah Pierson MD Unavailable Silvia Alonso NP Unavailable [phone] Steve Segovia MD Unavailable [phone] Encounters Date Type Department Care Team Description 06/19/2024 Orders Only [facility] Endocrinology Metabolism and Lipid [address] [facility] 13th [place] [address] [place] [address] Geovanna Gan RMA Acquired hypothyroidism (Primary Dx) 06/18/2024 8:40 AM CDT - 06/18/2024 11:59 PM CDT Hospital Encounter [facility] - Breast Imaging [facility] [address] [place] [address] Family history of breast cancer; Abnormal MRI, breast; Encounter for screening mammogram for malignant neoplasm of breast Discharge Disposition: Discharge to home or self care 06/18/2024 8:00 AM CDT Office Visit [facility] Surgery [address] [facility] Floor [address] [place] [address] Maria Guadalupe Maya NP Encounter for screening mammogram for malignant neoplasm of breast (Primary Dx); Family history of breast cancer; At high risk for breast cancer 06/17/2024 Orders Only [facility] Endocrinology Metabolism and Lipid [address] [facility] 13th [place] [address] [place] [address] Geovanna Gan RMA Acquired hypothyroidism (Primary Dx) 06/16/2024 3:30 PM CDT Office Visit [facility] Allergy and Immunology [address] [facility] [address] [place] [phone] Imani Sosa MD Moderate persistent asthma without complication (Primary Dx); Seasonal allergic rhinitis due to pollen; Urticaria; Anaphylaxis, subsequent encounter 06/04/[address] [facility] Allergy and Immunology [address] [facility] [address] [place] [phone] Esther Jay RN Ipratropium-Albuterol Prior Auth 05/26/2024 1:17 PM ELECTRONICS INSTALLER - 05/26/2024 11:59 PM ELECTRONICS INSTALLER Hospital Encounter [facility] [address] [place] [address] Persistent cough Discharge Disposition: Discharge to home or self care 05/26/2024 Orders Only [facility] Allergy and Immunology [address] [facility] [address] [place] [address] Imani Sosa MD Persistent cough (Primary Dx) 05/24/[address] [facility] All[facility] Immunology [address] [facility] [address] [place] [phone] Liu Mayer MD 05/13/[address] [facility] Surgery [address] [facility] Floor 8 [place] [phone] Maria Guadalupe Maya NP Scheduling Appointments 05/13/2024 Orders Only [address] [id number] Eli Salas MD 05/13/2024 3:40 PM ELECTRONICS INSTALLER Office Visit [facility] Rheumatology [address] [place] [address] [address] [place] [phone] Belinda Chadwick MD Autoimmune thyroiditis (Primary Dx); Tenosynovitis 05/08/2024 11:00 AM ELECTRONICS INSTALLER Telemedicine [facility] Endocrinology Metabolism and Lipid [address] [facility] 13th [place] [address] [place] [address] Sarah Pierson MD Adrenal insufficiency (Primary Dx); Acquired hypothyroidism; Type 2 diabetes mellitus without complication, with long-term current use of insulin (HCC); Hyperlipidemia, unspecified hyperlipidemia type; Vitamin D deficiency 05/05/2024 Orders Only [facility] [address] [facility] [place] [address] Eli Salas MD 05/01/2024 Orders Only [facility] Endocrinology Metabolism and Lipid [address] [facility] 13th [place] [address] [place] [address] Geovanna Gan RMA Adrenal insufficiency; Acquired hypothyroidism; Multinodular thyroid 05/01/2024 Orders Only [facility] Endocrinology Metabolism and Lipid [address] [facility] [address]th [place] [address] [place] [address] Geovanna Gan RMA Acquired hypothyroidism (Primary Dx) 04/30/2024 Telephone [facility] [address] [place] [address] 3rd Floor [address] [place] [phone] Jerrica Kapoor RN 04/22/[address] [facility] Surgery [address] [facility] Floor [address] [place] [phone] Sondra Granger NP Medical Question/Miscellaneou s 04/17/2024 5:21 PM ELECTRONICS INSTALLER - 04/17/2024 11:59 PM ELECTRONICS INSTALLER Hospital Encounter [facility] [address] [place] [address] Health care maintenance Discharge Disposition: Discharge to home or self care 04/17/2024 12:30 PM ELECTRONICS INSTALLER Office Visit [facility] 3rd Floor [address] [place] [phone] Eli Salas MD Health care maintenance (Primary Dx) from Last 3 Months Allergies Active Allergy Reactions Criticality Noted Date [...] High 08/18/2016 Reaction: Rash, Sulfanilamide Anaphylaxis High [place] Oil Shortness of breath High 08/18/2016 Tetracycline [...] vitamins (B COMPLEX 1) tablet 0 0 016 Active calcium citrate (CALCITRATE) 950 mg (200 mg elemental) tablet 0 0 016 Active magnesium citrate 100 mg tablet Take 100 mg by mouth daily. Active promethazine (PHENERGAN) 25 mg tabletIndications :Moderate persistent asthma with acute exacerbation Take 1 tablet (25 mg total) by mouth every 6 (six) hours as needed for nausea or vomiting. 90 tablet 3 019 Active Lactobac 40-Bifido 3-S.thermop 100 billion cell capsule Take 1 capsule by mouth 3 (three) times a day 90 capsule 11 Active cholecalciferol (VITAMIN D3) 5,000 unit tablet 1 daily 30 tablet 11 Active melatonin 5 mg tablet Take 1 tablet (5 mg total) by mouth nightly 30 tablet Active butalbital-acetam inophen 50-325 mg tabletIndications :Intractable migraine with aura with status migrainosus Take 1-2 tablets by mouth every 4 hours as needed for migraines. Max 6 tabs in 24 hours 30 tablet 5 019 Active OneTouch Delica Lancets 33 gauge misc Use 3 times daily 300 each 3 021 Active vitamin B complex with folic acid [...] 5 (five) times a day 35 tablet 023 Active alcohol swabs (BD Alcohol Swabs) [...] complication, with long-term current use of insulin ([facility]) INJECT 10-15 BEFORE MEALS PLUS SLIDING SCALE UP TO 4 TIMES DAILYPER SLIDING SCALE. MAX DAILY DOSE OF 50 UNITS 30 mL Active dexAMETHasone (DECADRON) 4 mg/mL injectionIndicati ons:Adrenal [...] as needed for itching 30 tablet 5 Active azelastine (ASTELIN) 137 mcg (0.1 %) nasal spray Administer 2 sprays into each nostril 2 (two) times a day Use in each nostril as directed 30 mL Active EPINEPHrine 0.3 mg/0.3 mL auto-injection syringeIndication s:Multiple food allergies INJECT 0.3ML INTO THE MUSCLE INSTRUCTED NEEDED FOR ANAPHYLAXIS 2 each Active spironolactone (ALDACTONE) 50 mg tabletIndications :Type 2 diabetes mellitus without complication, with long-term current use of insulin (HCC),Adrenal insufficiency,Acq uired hypothyroidism,Mu ltinodular thyroid,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 28 tablet 024 Active tirzepatide (Mounjaro) 15 mg/0.5 mL pen injectorIndicatio ns:Type 2 diabetes mellitus without complication, with long-term current use of insulin ([facility]) ADMINISTER 15MG UNDER THE SKIN EVERY 7 DAYS 6 mL 3 024 Active potassium chloride ER 8 mEq CR capsuleIndication s:Type 2 diabetes mellitus without complication, with long-term current use of insulin ([facility]),Adrenal insufficiency,Sev ere adrenal insufficiency,Dys uria TAKE 1 CAPSULE(8 MEQ) BY MOUTH TWICE DAILY 180 capsule 1 025 Active Advair HFA 230-21 mcg/actuation inhaler Inhale 2 puffs 2 (two) times a day Rinse mouth with water after use. Do not swallow. 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 before breakfast 30 capsule 11 025 Active levocetirizine (XYZAL) 5 mg tablet TAKE 1 TABLET(5 MG) BY MOUTH FOUR TIMES DAILY 90 tablet 2 025 Active albuterol HFA (PROVENTIL HFA,VENTOLIN HFA,PROAIR HFA) 90 mcg/actuation inhaler INHALE 1 TO 2 PUFFS BY MOUTH EVERY 4 HOURS NEEDED FOR WHEEZING 8.5 g 2 Active ipratropium-albut Dru (DUO-NEB) 0.5-2.5 mg/3 mL nebulizer solution USE 1 VIAL VIA NEBULIZER EVERY 4 HOURS NEEDED 540 mL 1 023 2024 Discontinued(Rubens gutierrez) pen needle, diabetic 32 gauge x 5/32 needleIndications :Type 2 [...] 1 capsule (75 mcg total) by mouth pattern shop supervisor before breakfast 90 capsule 3 025 2024 [...] Sarah Pierson MD Subject: RE: RE: [facility] I forgot to ask you yesterday [...] be fine for you to decrease to now, and see how you do. I [...] the three times a day dosing, so for the next several days. Also, I [...] 12/06/2023 Assessment & Plan (05/08/2024 11:41 AM ELECTRONICS INSTALLER): Multiple drug allergies. Consider PCSK9 therapy in [...] 04/15/2021 Assessment & Plan (05/16/2021 12:00 PM ELECTRONICS INSTALLER): Pfizer vaccine 06/11/20, 07/19/20, 12/10/20; COVID 04/15/2021 Has immunity to COVID-19 virus 11/12/2020 Overview (05/17/2022): Pfizer coronavirus vaccine x 4 Assessment & Plan (05/17/2022 7:56 AM ELECTRONICS INSTALLER): Fully vaccinated Assessment & Plan (11/08/2021 6:46 AM CDT): Fully vaccinated, eligible for booster. Assessment & Plan (08/08/2021 12:45 PM CDT): Fully vaccinated, eligible for booster. Assessment & Plan (05/13/2021 4:32 PM ELECTRONICS INSTALLER): Pfizer coronavirus vaccine 12/10/2020, 07/19/2020, 06/21/2020 Type 2 diabetes mellitus, wi th long-term current use of insulin 03/02/2020 Assessment & Plan (05/08/2024 11:42 AM ELECTRONICS INSTALLER): Doing reasonably well with mealtime Humalog, weekly Mounjaro and low dose Tresiba basal insulin. Assessment & Plan (10/27/2023 7:38 PM CDT): Doing reasonably well with mealtime Humalog, weekly Mounjaro and no basal insulin. Assessment & Plan (04/20/2023 7:38 PM ELECTRONICS INSTALLER): Glucoses within a reasonably level of control [...] A1C Assessment & Plan (05/18/2022 11:01 AM ELECTRONICS INSTALLER): Glucoses a little higher recently because of [...] meals Assessment & Plan (05/16/2021 11:58 AM ELECTRONICS INSTALLER): Her insulin requirements have increased because of recent elevations in her glucocorticoids, but she is managing this well. Need to maintain a good margin of safety Assessment & Plan (02/14/2021 1:56 PM ELECTRONICS INSTALLER): -Currently taking Humalog + Victoza -Dexcom download [...] change. Assessment & Plan (06/11/2020 10:43 AM ELECTRONICS INSTALLER): Glucoses often above target associated with fluctuations in glucocorticoids. She checks her glucoses four times daily and takes Humalog sliding scale 4 times daily to adjust based on her glucose levels. She should benefit greatly from a Dexcom CGM device. Need f/u HA1c level Assessment & Plan (03/02/2020 10:01 AM ELECTRONICS INSTALLER): Related to steroids, A1c now within a [...] cortisol response and actually improve cortisol production. https://www.sciencedirect.com/science/article/pii/K001224316987305E Previously reviewed hormonal control methods and her [...] short course but this is not a director long term care solution Since visit 05/03/2020, her bleeding has resolved and her adrenal crises have markedly improved. She would like to try 10 mg Provera to see if this improves her symptoms even more. Reviewed this is a reasonable plan. Acquired hypothyroidism 06/02/2019 Assessment & Plan (05/08/2024 11:40 AM ELECTRONICS INSTALLER): Clinically doing well on increased dose Assessment & Plan (10/27/2023 7:39 PM CDT): Clinically euthyroid. Assessment & Plan (04/20/2023 7:36 PM ELECTRONICS INSTALLER): Clinically euthyroid but needs f/u labs Assessment [...] TFT Assessment & Plan (05/18/2022 11:00 AM ELECTRONICS INSTALLER): Clinically euthyroid Assessment & Plan (02/08/2022 12:57 [...] currently Assessment & Plan (05/16/2021 12:01 PM ELECTRONICS INSTALLER): Clinically euthyroid, continue current levothyroxine Assessment & Plan (02/14/2021 1:56 PM ELECTRONICS INSTALLER): -Appears euthyroid on replacement -Will continue same levothyroxine dose at 100 mcg daily -Reviewed proper ways to take levothyroxine replacement -Repeat TFT Assessment & Plan (11/12/2020 3:19 PM CDT): Clinically euthyroid and stable Assessment & Plan (2020 12:08 PM CDT): Clinically euthyroid, doing well Assessment & Plan (06/11/2020 10:45 AM ELECTRONICS INSTALLER): Clinically euthyroid, but needs f/u labs due to alterations in her sex hormone status. Assessment & Plan (03/02/2020 10:56 AM ELECTRONICS INSTALLER): Clinically euthyroid, doing well. If she were [...] 07/10/2018 Assessment & Plan (03/02/2020 10:00 AM ELECTRONICS INSTALLER): Occasional glucose excursions, related to diet, steroids but A1c within an acceptable range Assessment & Plan (11/25/2019 7:43 AM CDT): She has some nausea with the Victoza, but trying to work this through. Glucoses within a reasonable margin of safety and she is monitoring appropriately. Assessment & Plan (02/21/2019 2:25 PM ELECTRONICS INSTALLER): Glucoses within a good margin of safety, [...] 06/13/2017 Assessment & Plan (03/02/2020 10:00 AM ELECTRONICS INSTALLER): Needs ongoing monitoring of vitamin-D status Left [...] her own safety due to differences in product development consultant formulas. Assessment & Plan (11/22/2017 9:35 AM CDT): On admission, discussed with the patient, and due to her severe allergies (anaphylaxis) to multiple medications and Red 40 dye she prefers to take her home supply of medications. She will have her medications verified by pharmacy. This is to ensure her own safety due to differences in product development consultant formulas. Assessment & Plan (11/21/2017 9:11 AM CDT): On admission, discussed with the patient, and due to her severe allergies (anaphylaxis) to multiple medications and Red 40 dye she prefers to take her home supply of medications. She will have her medications verified by pharmacy. This is to ensure her own safety due to differences in product development consultant formulas. LLQ pain 02/26/2017 Assessment & Plan (02/26/2017 12:04 PM ELECTRONICS INSTALLER): We will proceed with transvaginal ultrasound to be completed at [facility]. Patient understands that if there is [...] replacement. She is awaiting lab orders from program technician. She is requesting we go ahead and draw these today: TSH and free T4. Further direction pending these results. Adrenal insufficiency 09/04/2016 Overview (09/08/2016): Adrenal insufficiency Assessment & Plan (05/08/2024 11:40 AM ELECTRONICS INSTALLER): She is adept at adjusting steroids to stresses, infections.Still tapering appropriately and adjusting insulin appropriately. Assessment & Plan (10/27/2023 7:39 PM CDT): She is adept at adjusting steroids to stresses, infections.Still tapering appropriately and adjusting insulin appropriately. Assessment & Plan (04/20/2023 7:37 PM ELECTRONICS INSTALLER): She is adept at adjusting steroids to [...] -She has after-hours phone number for the program technician transmission mechanic -She has complaints of fatigue and muscular cramping. -Will check CMP and magnesium levels Assessment & Plan (05/18/2022 11:00 AM ELECTRONICS INSTALLER): Currently has required intercurrent stress dose steroids, gradually tapering down and clinically improved Assessment & Plan (02/08/2022 12:56 PM CDT): -Taking Hydrocortisone with dose adjustments per Dr. Pierson -She has after-hours phone number for the program technician transmission mechanic and Dexamethasone emergency kit Assessment & Plan (11/11/2021 10:14 AM CDT): She is extremely knowledgeable and adapt in adjusting her hydrocortisone based on stress symptomatology. Assessment & Plan (08/09/2021 7:22 AM CDT): Clinically doing reasonably well right now, with gradually reducing steroids as tolerated. Some clinical stigmata of Tam's, but clinically overall doing reasonably well right now Assessment & Plan (05/16/2021 12:01 PM ELECTRONICS INSTALLER): With recent COVID infection as well as a later allergic reaction, she has required higher doses of steroids, and needs to very gradually taper. She is very familiar with how to do this and has emergency dexamethasone, if needed. Assessment & Plan (02/14/2021 1:55 PM ELECTRONICS INSTALLER): -Taking Hydrocortisone with dose adjustments per Dr. Pierson -Needed stress doses this past weekend, but has not needed to take injection -She has after-hours phone number for the program technician transmission mechanic Assessment & Plan (11/12/2020 3:19 PM CDT): [...] stable. Assessment & Plan (06/11/2020 10:45 AM ELECTRONICS INSTALLER): Overall pattern is reasonably stable. Unable to taper glucocorticoids during the spring allergy season due to occasional exacerbations. Assessment & Plan (03/02/2020 10:55 AM ELECTRONICS INSTALLER): She still has frequent episodes of symptomatic [...] density Assessment & Plan (02/21/2019 2:25 PM ELECTRONICS INSTALLER): She continues to be very symptomatic, is [...] symptoms. She was seen by her primary program technician Dr. Pierson in the ED and he [...] symptoms. She was seen by her primary program technician Dr. Pierson in the ED and he recommended hydrocortisone 50 mg IV q 6 h. She noted subjective improvement after the first dose. Endocrine consulted and will follow along - Decrease hydrocortisone 25mg q6 - Endocrine consulted, appreciate recs Assessment & Plan (11/21/2017 9:11 AM CDT): Her prednisone has been adjusted without improvement in her symptoms. She was seen by her primary program technician Dr. 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 Hay fever 04/22/2014 Pleurodynia 03/13/2014 Shortness of breath 03/13/2014 Vitamin D deficiency 12/29/2013 Overview (07/15/2016): Vitamin D deficiency Assessment & Plan (05/08/2024 11:42 AM ELECTRONICS INSTALLER): Continue long-term supplement, particularly with glucocorticoid therapy Assessment & Plan (10/27/2023 7:35 PM CDT): Continue long-term supplement, particularly with glucocorticoid therapy Assessment & Plan (04/20/2023 7:38 PM ELECTRONICS INSTALLER): Continue long-term supplement, particularly with glucocorticoid therapy Assessment & Plan (10/14/2022 7:31 PM CDT): Continue long-term supplement, particularly with glucocorticoid therapy Assessment & Plan (05/18/2022 11:01 AM ELECTRONICS INSTALLER): Continue long-term supplement, particularly with glucocorticoid therapy Assessment & Plan (11/11/2021 10:15 AM CDT): Continue long-term supplement, particularly since she is requiring long-term steroids Assessment & Plan (08/09/2021 7:23 AM CDT): Continue long-term supplement. Recent level within target Assessment & Plan (05/16/2021 11:57 AM ELECTRONICS INSTALLER): Continue long-term supplement Assessment & Plan (02/14/2021 1:56 PM ELECTRONICS INSTALLER): -Continue current Vitamin D supplement -Repeat level Assessment & Plan (11/12/2020 3:20 PM CDT): Continue long-term supplement Assessment & Plan (2020 12:08 PM CDT): Continue chronic supplement Assessment & Plan (06/11/2020 10:51 AM ELECTRONICS INSTALLER): Also on chronic glucocorticoids. Continue chronic supplement. Recent level within target Assessment & Plan (03/02/2020 10:01 AM ELECTRONICS INSTALLER): On chronic supplement, but needs follow-up level particularly in the setting of a history of nephrolithiasis Assessment & Plan (11/25/2019 7:42 AM CDT): On steroids, needs to continue supplement as she is doing Assessment & Plan (09/19/2019 11:40 AM CDT): Recent level fine, continue long-term supplement Assessment & Plan (02/21/2019 2:26 PM ELECTRONICS INSTALLER): Continue ongoing supplement Assessment & Plan (12/04/2018 [...] MGRN Assessment & Plan (02/26/2017 12:03 PM ELECTRONICS INSTALLER): Medication refilled for p.r.n. use for headache. [...] NOS Assessment & Plan (06/11/2020 10:46 AM ELECTRONICS INSTALLER): Occasional exacerbations, requiring stress-dose steroids. Assessment & [...] Red 40 and PCMX antimicrobial in soap Immunizations Immunization Administration Dates Next Due Influenza, [...] Free 04/09/2011 Td, adsorbed 04/09/2011 Tdap 09/30/2016,01/26/2013 Social History Tobacco Use Types Packs/Day Years [...] on file Legal Sex Female 10:17 AM ELECTRONICS INSTALLER Gender Identity Not on file Sexual Orientation Not on file Last Filed Vital Signs Vital Sign Reading Time Taken Comments Blood Pressure 125/84 06/16/2024 3:41 PM CDT Pulse 101 06/16/2024 3:41 PM CDT Temperature 36.2 C (97.1 F) 05/13/2024 3:35 PM ELECTRONICS INSTALLER Respiratory Rate 18 04/17/2024 12:39 PM ELECTRONICS INSTALLER Oxygen Saturation 99% 06/16/2024 3:41 PM CDT Inhaled Oxygen Concentration - - Weight 73.5 kg (162 lb) 06/18/2024 8:13 AM CDT Height 157.5 cm (5' 2 ) 06/18/2024 8:13 AM CDT Body Mass Index 29.63 06/18/2024 8:13 AM CDT Plan of Treatment Not on file Procedures Procedure Name Priority Date/Time Associated Diagnosis Comments SCREENING MAMMOGRAM BILATERAL W CHAKA Schedule Routine, Read Routine (OP Routine) 06/18/2024 9:14 AM CDT Family history of breast cancer Abnormal MRI, breast Encounter for screening mammogram for malignant neoplasm of breast XR CHEST PA LATERAL 2 VIEWS Schedule Routine, Read Routine (OP Routine) 05/26/2024 1:30 PM ELECTRONICS INSTALLER Persistent cough PAP WITH REFLEX TO HIGH RISK HPV Routine 04/17/2024 1:26 PM ELECTRONICS INSTALLER Health care maintenance THINPREP PROCESSING (MOLECULAR COMPONENT) Routine 04/17/2024 9:00 AM ELECTRONICS INSTALLER POCT HEMOGLOBIN A1C Routine 02/20/2024 11:13 AM ELECTRONICS INSTALLER Type 2 diabetes mellitus without complication, with [...] AM CDT Adrenal insufficiency Vitamin D deficiency terminal 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 on 09/30/2021, 07/05/2022 and 04/18/2023. There are [...] compared to prior imaging studies performed at [facility] on 09/30/2021, 07/05/2022 and 04/18/2023. There are scattered areas of fibroglandular density. There is no suspicious abnormality in either breast. Impression: There is no mammographic evidence of malignancy. Annual screening mammography is recommended. OVERALL FINAL ASSESSMENT: BI-RADS CATEGORY 1: Negative. Maria Guadalupe Maya NP IMG MAMMO PROCEDURES Final Res ult * X-ray chest 2 views (05/26/2024 1:30 PM ELECTRONICS INSTALLER) Anatomical Region Laterality Modality Body, Chest N/A Computed Radiogr aphy 05/29/2024 8:12 AM ELECTRONICS INSTALLER Narrative 05/29/2024 8:14 AM ELECTRONICS INSTALLER EXAM DESCRIPTION: XR CHEST PA LATERAL 2 [...] Jozef Light M.D. CH: TSERING Report ID: [id number] Reading Location: [id number] Procedure Note Jozef Light Jr., MD - [...] Jozef Light M.D. CH: TSERING Report ID: [id number] Reading Location: [id number] Imani Sosa MD IMG XR PROCEDURES Final Res ult * Pap with reflex to High Risk HPV and Genotyping (Cytology Component) (04/17/2024 1:26 PM ELECTRONICS INSTALLER) Thin prep (Pap test) 04/17/2024 1:26 PM ELECTRONICS INSTALLER 04/17/2024 4:57 PM ELECTRONICS INSTALLER Narrative [facility]OLOGY [facility] - 04/22/2024 3:52 PM ELECTRONICS INSTALLER EPIC results best viewed via link to PDF [facility] [place] [address] Note to Patients: This report may contain [...] Gender: F : 1980 (Age: 43) Address: [address] [place] [id number] Hospital #: [id number] Service: UNKNOWN Location: Patient Type: [facility] SPECIMEN Taken: 04/17/2024 Received: 04/17/2024 Accessioned: 04/17/2024 Reported: 04/22/2024 Physician(s): Eli Salas M.D. FINAL INTERPRETATION SOURCE OF SPECIMEN Liquid based Thin Prep pap with Reflex HPV: STATEMENT OF ADEQUACY - Unsatisfactory specimen - Specimen processed and evaluated, but unsatisfactory for evaluation due to sparsely cellular sample - Cytolysis present [facility]/04/22/2024 15:52 CLARISSE Stern (ASCP) Report Electronically Reviewed [...] clinical information and biopsy results as indicated. [facility] Clinical Laboratory Improvement Amendments (CLIA) mandate that cytologic and histologic results be correlated for laboratory senior software quality engineer & improvement standards. FOR ALL HIGH-GRADE CASES [...] determined by the Surgical Pathology Department at [facility] as part of an ongoing manager quality program and in compliance with federally mandated [...] determined by the Surgical Pathology Department of [facility]. It has not been cleared or approved by the U. S. Food and Drug Administration. us Eli Salas MD LAB CYTOLOGY ORDERABLES Fi nal Result PATHOLOGY [facility] 3rd Floor [place], [place] [phone] * ThinPrep processing (Molecular component) (04/17/2024 9:00 AM ELECTRONICS INSTALLER) ThinPrep processing (Molecular component) Specimen received for processing. [facility] Endocervical 04/17/2024 9:00 AM ELECTRONICS INSTALLER 04/21/2024 9:00 AM ELECTRONICS INSTALLER us Eli Salas MD LAB BODY FLUIDS AND STOOLS ORDERABLES Final Result [facility] [place] [address] [facility] * POCT hemoglobin A1c (02/20/2024 11:13 AM ELECTRONICS INSTALLER) Hemoglobin A1C, POC 6.6 4.0 - 5.6 % Blood 02/20/2024 11:1 3 AM ELECTRONICS INSTALLER Tova Hanna NP POINT OF CARE TEST ORDE RABLES Final Result * Albumin Creatinine Ratio, Urine (12/06/2023 8:29 AM CDT) Albumin Ur <12.0 mg/L Comment: Interpretive Data No reference range established. Current interpretive data was last revised 2018. Testing performed by: [facility], [address] [place] [address]., [id number] Creatinine Ur 51.9 mg/dL [facility] BA (JESSICA) Comment: Interpretive Data No reference range established. Current interpretive data was last revised 2018. Testing performed by: [address] [address] Albumin Creatinine Ratio, Ur <23 1 - 29 mg/g [facility] (JESSICA) Comment:Testing performed by : [address] [address] Urine 12/06/2023 8:29 AM CDT 12/06/2023 11:00 AM CDT Tova Hanna NP LAB URINE ORDERABLES Fi nal Result [facility] (JESSICA) 1 [facility] Department [place] [address] * (ABNORMAL) Lipid panel (12/06/2023 8:29 AM [...] on 2023. Non-HDL Cholesterol 160 mg/dL [facility] (JESSICA) Comment: Interpretive Data [...] getting your blood drawn. us Tova Hanna CABLE TENDER LAB BLOOD ORDERABLES nal Result [facility] (JESSICA) 1 [facility] Department of Onsite Care [place], [place] [id number] * Dexa Axial Skeleton Bone Density 1 or 2 Site (11/28/2023 10:35 AM CDT) Anatomical Region Laterality Modality Body N/A Radiographic Elizabeth ging Narrative 11/28/2023 10:58 AM CDT Patient Name: Paige Abarca Date of : 1980 Date of scan: 11/28/2023 Bone mineral density was performed on a [employer] Discovery Densitometer. Based on machine cross-calibration and [...] by the International Society of Clinical Densitometry. [id number] us Sarah Pierson MD IMG DXA PROCEDURES [...] MD LAB BLOOD ORDERABLES Final Result [facility] (JESSICA) 1 [facility] Department [place] [address] * Hepatitis C antibody (04/18/2018 12:24 PM ELECTRONICS INSTALLER) Hep C Ab Non-Reactiv e Non-Reactiv e [facility] Blood specimen (specimen) 04/18/2018 12:24 PM ELECTRONICS INSTALLER 04/18/2018 3:00 PM ELECTRONICS INSTALLER Narrative [facility] - 04/18/2018 4:17 PM ELECTRONICS INSTALLER Laura Pineda MD LAB MICROBIOLOGY - GENERAL ORDERABLES Final Result [facility] [address] [place] [address] from Last 3 Months or Most Recently Relevant to Health Maintenance Insurance [facility] [employer] MEDICARE [facility] [place] [address] [facility] MEDICARE MEDICARE [facility] Address: [address] [address] [place] [address] [employer] Advance Directives For more information, please contact: [phone] * Full Code (Latest Code Status on File) Date Activated Date Inactivated Comments 11/21/2017 1:39 AM 11/23/2017 4:26 PM * Full Code Date Activated Date Inactivated Comments 06/10/2017 12:31 AM 06/18/2017 8:48 PM Care Teams Track Car 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
--- OUTSIDE RECORDS SUMMARY | 2024-06-28 16:43 | XMS_ITS | Clinical Summary ---
Author Organization [facility] Address [address] [place] [address] Phone Care Team Providers Care Goldsmith Apprentice Name Role Phone Juan Lyons MD Primary Care Provider [phone] Allergies Active Allergy Reactions Criticality Noted Date Comments Amitriptyline Other (see Comments) 08/18/2016 Amoxicillin Rash 11/19/2015 Almotriptan Malate Rash 08/18/2016 Banana Anaphylaxis 08/18/2016 Cefprozil Hives 08/18/2016 Celecoxib Rash 08/18/2016 Chloroxylenol Anaphylaxis 08/18/2016 Chocolate Anaphylaxis 08/18/2016 Ciprofloxacin Hives 11/19/2015 Clindamycin Hives 08/18/2016 Gluten Meal Unknown 08/18/2016 Heparin Unknown 08/18/2016 Cannot have sulfa preservative Escitalopram Oxalate Hives 05/01/2017 Morphine Hives 08/18/2016 Peanut (Diagnostic) Anaphylaxis 08/18/2016 Pear Anaphylaxis 08/18/2016 Penicillins Hives 11/19/2015 Pineapple Anaphylaxis 08/18/2016 Prednisone Unknown 07/23/2018 makes me crazy Lansoprazole Rash 08/18/2016 Red Dye #40 (Allura Red) Anaphylaxis 08/18/2016 Metoclopramide Hcl Hives 08/18/2016 Sesame Oil Shortness of Breath 08/18/2016 Montelukast Hives 08/18/2016 Sucralfate Hives 08/18/2016 Sulfa Antibiotics Anaphylaxis 08/18/2016 Graves Oil Shortness of Breath 08/18/2016 Tetracycline Anaphylaxis 08/18/2016 Wheat Extract Unknown 08/18/2016 Omalizumab Anaphylaxis 08/18/2016 Ranitidine Anaphylaxis 08/18/2016 Sertraline Hcl Anaphylaxis 08/18/2016 Medications clonazePAM (KLONOPIN) 1 MG Tablet Take 0.25 mg by mouth 3 times daily. Pt is taking a total of 1.5 mg a day 1/2 in the morning and mid day and 3/4 at night. Active fluticasone (FLONASE) 50 MCG/ACT Suspension 1-2 Sprays by Nasal route daily. Use in each nostril as directed. Active butalbital-aspirin- caffeine-codeine (FIORINAL WITH CODEINE) 14-556-18-30 MG Capsule Take 1 Cap by mouth every 6 hours as needed for Pain. Active ipratropium-albuter ol (DUO-NEB) 0.5-2.5 (3) MG/3ML Solution by Nebulization route 4 times daily. Active promethazine (PHENERGAN) 25 MG Tablet Take 25 mg by mouth every 6 hours as needed for Nausea. Active guaiFENesin (MUCINEX) 600 MG TABLET SR 12 HR Take 1,200 mg by mouth 2 times daily. Active Cholecalciferol (VITAMIN D3) 1000 UNIT Tablet Take 5,000 Units by mouth. Active MAGNESIUM CITRATE PO Take by mouth. Activ e B Uzzpzwu-Nkxwqe-MQ (B-COMPLEX PO) Take by mouth. Active Probiotic Product (PROBIOTIC DAILY PO) Take by mouth. Activ e melatonin 3 MG Tablet Take 5 mg by mouth nightly. Active levothyroxine (SYNTHROID) 75 MCG Tablet Take 100 mcg by mouth See Admin Instructions. Active azelastine (ASTELIN) 0.1 % Solution 2 Sprays by Nasal route 2 times daily. Use in each nostril as directed Active Levocetirizine Dihydrochloride 5 MG Tablet Take 1 Tab by mouth 4 times daily. Active hydrocortisone (CORTEF) 5 MG TabletIndications:s liding scale Take by mouth 6 times daily. Indications: sliding scale Active Liraglutide (VICTOZA SC) by Subcutaneous route daily. Active spironolactone (ALDACTONE) 50 MG Tablet Take 75 mg by mouth 3 times daily. Active EPINEPHrine (EpiPen 2-Migel) 0.3 MG/0.3ML Solution Auto-injector 0.3 mL by Intramuscular route once as needed for Anaphylaxis. 1 mL 12/05/19 21 Active medroxyPROGESTERone (PROVERA) 5 MG Tablet Take 5 mg by mouth daily. Hazardous: Medication requires special safe handling and disposal. Active budesonide-formoter ol fumarate (Symbicort) 160-4.5 MCG/ACT Aerosol take 2 Puffs by inhalation 2 times daily. Active DHEA 10 MG Tablet Take 10 mg by mouth daily. Active Dexamethasone Base in Ora-BlendIndication s:by injection prn sob Take 4 mg by mouth. Indications: by injection prn sob Active albuterol (ProAir HFA) 108 (90 Base) MCG/ACT Aerosol Solution take 2 Puffs by inhalation every 6 hours as needed for Wheezing. Active CALCIUM CITRATE PO Take by mouth. Active Zinc Sulfate (ZINC-220 PO) Take by mouth. A ctive insulin lispro (HumaLOG) 100 UNIT/ML Solution 5 Units by Subcutaneous route 3 times daily (before meals). Use as directed Active tiZANidine (ZANAFLEX) 4 MG Tablet Take 1 Tablet by mouth every 6 hours as needed for Muscle spasms. 10 Tablet 10/04/19 23 Active ondansetron (ZOFRAN-ODT) 4 MG TABLET DISPERSIBLE Take 1 Tablet by mouth every 8 hours as needed for Nausea - 1st line. 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 We can get a follow-up thyroid ultrasound to evaluate PTSD (post-traumatic stress disorder) 06/10/2017 Overview (11/19/2019): Last Assessment & Plan: Currently she is treating anxiety with clonazepam alone; no anti-depressant at this time. Outpatient follow-up. - Continue clonazepam Chronic fatigue 11/21/2016 Overview (11/19/2019): Last Assessment & Plan: Patient mentions that she had an intense [...] as well. Further direction pending these results. Adrenal insufficiency 09/04/2016 Overview (11/19/2019): Adrenal insufficiency Last Assessment & Plan: She still requires very high doses of steroids, and has difficulty tapering. Will do this very very slowly as tolerated. She also needs follow-up DEXA bone density Autoimmune thyroiditis 09/04/2016 Overview (11/19/2019): Autoimmune thyroiditis Last Assessment & Plan: Clinically euthyroid, doing well Multiple food allergies 04/17/2016 Overview (11/19/2019): Last Assessment & Plan: On admission, discussed with the patient, and due to her severe allergies (anaphylaxis) to multiple medications and Red 40 dye she prefers to take her home supply of medications. She will have her medications verified by pharmacy. This is to ensure her own safety due to differences in senior web analyst formulas. Last Assessment & Plan: Patient to supply her own food. Epi IM if needed for anaphylaxis. 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 - Continue home inhalers and nebulizers. Encounters Date Type Department Care Team Description 06/03/2024 Transcribe Orders [facility] Scheduling [address] [place] [address] Juan Lyons MD Nonspecific abnormal electrocardiogram (ECG) (EKG) (Primary Dx) 05/27/2024 3:58 PM BLENDING MACHINE FEEDER - 05/27/2024 9:55 PM BLENDING MACHINE FEEDER Emergency [facility] Emergency [address] [place] [address] Arturo Barr PAC Adrenal insufficiency ([place]'s disease) ([facility]) Discharge Disposition: Discharged to home or Selfcare 05/27/2024 Travel 05/21/2024 12:13 PM BLENDING MACHINE FEEDER - 05/21/2024 6:07 PM BLENDING MACHINE FEEDER Emergency [facility] Emergency [address] [place] [address] Peggy Epps MD Influenza A Discharge Disposition: Discharged to home or Selfcare 05/21/2024 Travel from Last 3 Months Immunizations Immunization Administration Dates Next Due Influenza Vaccine 01/07/2014 Influenza Vaccine, Quadrivalent, PF 02/18/2021 Influenza, Injectable, Mdck, quadrivalent,with Preservative 01/16/2019 Pneumococcal Vaccine - 13 Valent 03/11/2015 Pneumococcal Vaccine Adult - 23 Valent 2,04/09/2011 TDAP Vaccine 09/30/2016,01/26/2013 Td (Adult) 04/09/2011 Social History Tobacco Use Types Packs/Day Years Used Date Smoking Tobacco: Never Smokeless Tobacco: Never Alcohol Use Standard Drinks/Week Comments No 0 (1 standard drink = 0.6 oz pur e alcohol) Comments No Sex and Gender Information Value Date Recorded Sex Assigned at Not on file Legal Sex Female 10:41 PM CDT Gender Identity Not on file Sexual Orientation Not on file Last Filed Vital Signs Vital Sign Reading Time Taken Comments Blood Pressure 131/74 05/27/2024 9:45 PM BLENDING MACHINE FEEDER Pulse 94 05/27/2024 9:45 PM BLENDING MACHINE FEEDER Temperature 37.5 C (99.5 F) 05/27/2024 4:52 PM BLENDING MACHINE FEEDER Respiratory Rate 17 05/27/2024 3:25 PM BLENDING MACHINE FEEDER Oxygen Saturation 93% 05/27/2024 9:45 PM BLENDING MACHINE FEEDER Inhaled Oxygen Concentration - - Weight 68 kg (150 lb) 05/27/2024 3:25 PM BLENDING MACHINE FEEDER Height 157.5 cm (5' 2 ) 05/27/2024 3:25 PM BLENDING MACHINE FEEDER Body Mass Index 27.44 05/27/2024 3:25 PM BLENDING MACHINE FEEDER Plan of Treatment Health Maintenance Due Date Last Done Comments Diabetes: Eye Exam 1982 Diabetes: Foot Exam 1982 Hepatitis B Immunization (1 of 3 - 19+ 3-dose series) 2001 Pap Smear 09/02/2003 Cervical Cancer Screening (CCS) 2012 HPV/Cotest 2012 SARS-COV-2 Immunization ( season) 2024 12/07/2023, 12/23/2021, 12/10/2020, Additional history exists Diabetes: Hemoglobin A1c 08/19/202402/19/2 024, 08/08/2023, 09/10/2022, Additional history exists Mammogram 12/04/2024 12/05/2023, 04/09, 01/03/2023, Additional history exists Diabetes: Nephropathy Screening 05/27/2025 05/27/2024, 05/21/2024, 11/16/2023, Additional history exists Td Immunization Every 10 Years (Adults With 1 Tdap) 09/30/2026 09/30/2016, 01/26/2013, 04/09/2011, Additional history exists Pneumococcal Immunization Combined (3 of 3 - PCV20 or PCV21) 2032 03/11/2015, 04/12/2011, 04/09/2011 Respiratory Syncytial Virus (RSV) Immunization (Adult) (1 - 1-dose 75+ series) 2057 Hepatitis C Virus (HCV) Screening Completed 11/19/2015 DTaP/Tdap/Td Immunization Discontinued 2016, 01/26/2013, 04/09/2011, Additional history exists Discussion re Starting/Frequency of Mammograms Completed 12/05/2023, 04/18/2023, 01/03/2023, Additional history exists Influenza Immunization Completed , 03/01/2022, 02/18/2021, Additional history exists Meningococcal Immunization (ACWY) Aged Out No longer eligible based on patient's age to complete this topic Rotavirus Immunization Aged Out No lo nger eligible based on patient's age to complete this topic Procedures Procedure Name Priority Date/Time Associated Diagnosis Comments LACTIC ACID (LACTATE) STAT 05/27/2024 7:42 PM BLENDING MACHINE FEEDER D-DIMER STAT 05/27/2024 6:21 PM BLENDING MACHINE FEEDER URINALYSIS REFLEX IF INDICATED BY ABNORMAL RESULTS STAT 05/27/2024 5:40 PM BLENDING MACHINE FEEDER CULTURE, BLOOD STAT 05/27/2024 5:38 PM BLENDING MACHINE FEEDER ADRENOCORTICOTROPIC HORMONE, P, SHERIFF ACTH STAT 05/27/2024 5:33 PM BLENDING MACHINE FEEDER LACTIC ACID (LACTATE) STAT 05/27/2024 5:33 PM BLENDING MACHINE FEEDER CULTURE, BLOOD STAT 05/27/2024 5:33 PM BLENDING MACHINE FEEDER XR CHEST 2 VIEWS STAT 05/27/2024 5:02 PM BLENDING MACHINE FEEDER RSV,SARS-COV-2,INFLUENZA A&B BY PCR STAT 05/27/2024 4:47 PM BLENDING MACHINE FEEDER EKG 12 LEAD STAT 05/27/2024 3:41 PM BLENDING MACHINE FEEDER MANUAL DIFFERENTIAL STAT 05/27/2024 3 :33 PM BLENDING MACHINE FEEDER CBC WITH AUTO DIFFERENTIAL STAT 05/27 3:33 PM BLENDING MACHINE FEEDER CORTISOL STAT 05/27/2024 3:33 PM BLENDING MACHINE FEEDER TROPONIN I, HIGH SENSITIVITY (HSTRP) STAT 05/27/2024 3:33 PM BLENDING MACHINE FEEDER CMP (COMPREHENSIVE METABOLIC PANEL) STAT 05/27/2024 3:33 PM BLENDING MACHINE FEEDER COMPLETE BLOOD COUNT (CBC) WITH DIFF STAT 05/27/2024 3:33 PM BLENDING MACHINE FEEDER EKG SCAN 05/27/2024 12:00 AM BLENDING MACHINE FEEDER LACTIC ACID (LACTATE) STAT 05/21/2024 3:27 PM BLENDING MACHINE FEEDER XR CHEST 2 VIEWS STAT 05/21/2024 2:14 PM BLENDING MACHINE FEEDER UR TEST QUAL STAT 1:34 PM BLENDING MACHINE FEEDER URINALYSIS REFLEX IF INDICATED BY ABNORMAL RESULTS STAT 05/21/2024 1:34 PM BLENDING MACHINE FEEDER CULTURE, BLOOD STAT 05/21/2024 12:49 PM BLENDING MACHINE FEEDER EKG 12 LEAD STAT 05/21/2024 12:29 PM BLENDING MACHINE FEEDER GOLD TOP TUBE STAT 05/21/2024 12:23 PM BLENDING MACHINE FEEDER BLUE TOP TUBE STAT 05/21/2024 12:23 PM BLENDING MACHINE FEEDER CBC WITH AUTO DIFFERENTIAL STAT 05/21 12:23 PM BLENDING MACHINE FEEDER D-DIMER STAT 05/21/2024 12:23 PM BLENDING MACHINE FEEDER EXTRA TUBES STAT 05/21/2024 12:23 PM BLENDING MACHINE FEEDER LACTIC ACID (LACTATE) STAT 05/21/2024 12:23 PM BLENDING MACHINE FEEDER CMP (COMPREHENSIVE METABOLIC PANEL) STAT 05/21/2024 12:23 PM BLENDING MACHINE FEEDER COMPLETE BLOOD COUNT (CBC) WITH DIFF STAT 05/21/2024 12:23 PM BLENDING MACHINE FEEDER RSV,SARS-COV-2,INFLUENZA A&B BY PCR STAT 05/21/2024 12:23 PM BLENDING MACHINE FEEDER CULTURE, BLOOD STAT 05/21/2024 12:23 PM BLENDING MACHINE FEEDER EKG SCAN 05/21/2024 12:00 AM BLENDING MACHINE FEEDER HEMOGLOBIN A1C W/ ESTIMATED GLUCOSE Routine 10/04/2018 5:16 PM CDT Adrenal insufficiency ([place]'s disease) (HCC) HEPATITIS C ANTIBODY STAT 11/19/2015 6:47 PM CDT from Last 3 Months or Most Recently Relevant to Health Maintenance Results * Lactic Acid (Lactate) (05/27/2024 7:42 PM BLENDING MACHINE FEEDER) Only the most recent of4 resultswithin the time period is included. LACTIC ACID 1.8 0.7 - 2.0 mmol/L 05/27/2024 8:05 PM BLENDING MACHINE FEEDER [facility] Blood Venipuncture / Unknown 05/27/2024 7:42 PM BLENDING MACHINE FEEDER 05/27/2024 7:48 PM BLENDING MACHINE FEEDER us Arturo Barr PAC CHEMISTRY ORDERABLES Final Result [facility] [address] [place] [address] * D-DIMER [id number] (05/27/2024 6:21 PM BLENDING MACHINE FEEDER) Only the most recent of2 resultswithin the time period is included. D DIMER 0.40 <0.50 mcg/mL FEU 05/27/2024 7:17 PM BLENDING MACHINE FEEDER [facility] Blood Venipuncture / Unknown 05/27/2024 6:21 PM BLENDING MACHINE FEEDER 05/27/2024 6:59 PM BLENDING MACHINE FEEDER Narrative [facility] - 05/27/2024 7:17 PM BLENDING MACHINE FEEDER The FDA has approved this method to exclude the diagnosis of DVT and/or PE at the cutoff value of <0.50 mcg/mL FEU. Arturo Barr PAC HEMATOLOGY ORDERABLE S Final Result [facility] [address] [facility] [address] * (ABNORMAL) Urinalysis w/ Reflex (05/27/2024 5:40 PM BLENDING MACHINE FEEDER) Only the most recent of2 resultswithin the time period is included. SPECIFIC GRAVITY 1.010 1.003 - 1.030 05/27/2024 6:11 PM BLENDING MACHINE FEEDER [facility] URINE PH 7.0 5.0 - 9.0 05/27/2024 6:11 PM BLENDING MACHINE FEEDER [facility] WBC ESTERASE Negative Negative 05/27/2024 6:11 PM BLENDING MACHINE FEEDER [facility] NITRITE Negative Negative 05/27/2024 6:11 PM BLENDING MACHINE FEEDER [facility] PROTEIN, RANDOM URINE 15 mg/dL(A) Negative 05/27/2024 6:11 PM BLENDING MACHINE FEEDER [facility] URINE GLUCOSE, QUAL Negative Negative 05/27/2024 6:11 PM BLENDING MACHINE FEEDER [facility] URINE KETONES Negative Negative 05/27/2024 6:11 PM BLENDING MACHINE FEEDER [facility] UROBILINOGEN Normal Normal mg/dL 05/27/2024 6:11 PM BLENDING MACHINE FEEDER [facility] URINE BLOOD Negative Negative kimberly/ul 05/27/2024 6:11 PM BLENDING MACHINE FEEDER [facility] URINALYSIS COLOR Yellow 05/27/19 25 6:11 PM BLENDING MACHINE FEEDER [facility] URINALYSIS CLARITY Clear 05/27/2024 6:11 PM BLENDING MACHINE FEEDER [facility] Urine URINE SPECIMEN / Unknown Non-Phlebotomy Collection / Unknown 05/27/2024 5:40 PM BLENDING MACHINE FEEDER 05/27/2024 5:45 PM BLENDING MACHINE FEEDER Arturo Barr PAC URINE ORDERABLES Fin al Result [facility] [address] [place] [address] * Blood Culture #2 (05/27/2024 5:38 PM BLENDING MACHINE FEEDER) Only the most recent of4 resultswithin the time period is included. CULTURE RESULTS NO GROWTH WITHIN 5 DAYS, FINAL RESULT 06/01/2024 6:00 PM BLENDING MACHINE FEEDER [facility] Culture BLOOD SPECIMEN / Unknown Venipuncture / Unknown 05/27/2024 5:38 PM BLENDING MACHINE FEEDER 05/27/2024 5:44 PM BLENDING MACHINE FEEDER Arturo Barr PAC MICROBIOLOGY - GENER AL ORDERABLES Final Result Performing Organization Address [facility] Co de Phone Number [facility] [address] [place] [address], [place] * (ABNORMAL) ADENOCORTICOTROPIC HORM, P, SHERIFF ACTH (05/27/2024 5:33 PM BLENDING MACHINE FEEDER) ADRENOCORTICOTROPIC HORMONE (ACTH) <5.0(L) pg/mL 05/29/2024 10:46 AM BLENDING MACHINE FEEDER [employer] Comment: REFERENCE VALUE 7.2-63 (a.m. collection) Test Performed by: [place] [address] Building Components Designer: Lorenzo Nelson Ph.D.; CLIA# [id number] Blood Venipuncture / Unknown 05/27/2024 5:33 PM BLENDING MACHINE FEEDER 05/27/2024 5:44 PM BLENDING MACHINE FEEDER Arturo Barr PAC LAB SEND OUTS Kylah l Result [facility] * XR CHEST 2 VIEWS (05/27/2024 5:02 PM BLENDING MACHINE FEEDER) Only the most recent of2 resultswithin the time period is included. Anatomical Region Laterality Modality Chest N/A Digital Radiogra phy 05/27/2024 5:20 PM BLENDING MACHINE FEEDER Impressions 05/27/2024 5:23 PM BLENDING MACHINE FEEDER IMPRESSION: No acute cardiopulmonary abnormality. Narrative 05/27/2024 5:23 PM BLENDING MACHINE FEEDER EXAM DESCRIPTION: XR CHEST 2 VIEWS REASON FOR STUDY: elevated HR, fever, cough x 1 week. Pt Dx with Flu A on 05/21/24. Hx of Addisons disease, asthma TECHNIQUE: 2 radiographic view(s) of the chest. COMPARISON: 05/21/2024 FINDINGS: LUNGS: No focal opacity, pleural effusion, or pneumothorax. HEART/MEDIASTINUM: Cardiac silhouette normal in size. Mediastinal and hilar contours appear normal. LINES/TUBES: None. BONES: No acute osseous abnormality. THIS IS AN ELECTRONICALLY VERIFIED FINAL REPORT 05/27/2024 5:20 PM - Electronically signed by Kalin Wadsworth M.D. KT: KT Report ID: [id number] Reading Location: [place] [address] Procedure Note Kalin Wadsworth MD - 05/27/2024 EXAM DESCRIPTION: XR CHEST 2 VIEWS REASON FOR STUDY: elevated HR, fever, cough x 1 week. Pt Dx with Flu A on 05/21/24. Hx of Addisons disease, asthma TECHNIQUE: 2 radiographic view(s) of the chest. COMPARISON: 05/21/2024 FINDINGS: LUNGS: No focal opacity, pleural effusion, or pneumothorax. HEART/MEDIASTINUM: Cardiac silhouette normal in size. Mediastinal and hilar contours appear normal. LINES/TUBES: None. BONES: No acute osseous abnormality. THIS IS AN ELECTRONICALLY VERIFIED FINAL REPORT 05/27/2024 5:20 PM - Electronically signed by Kalin Wadsworth M.D. KT: KT Report ID: [id number] Reading Location: [id number] IMPRESSION: No acute cardiopulmonary abnormality. Arturo Barr PAC IMG DIAGNOSTIC ORDER AMINATA Final Result * RSV,SARS-COV-2,INFLUENZA A&B BY PCR (05/27/2024 4:47 PM BLENDING MACHINE FEEDER) Only the most recent of2 resultswithin the time period is included. FLU A Negative Negative, Error 05/27/2024 5:48 PM BLENDING MACHINE FEEDER [facility] FLU B Negative Negative 05/27/2024 5:48 PM BLENDING MACHINE FEEDER [facility] RESP SYNC VIRUS Negative Negative 5:48 PM BLENDING MACHINE FEEDER [facility] SARSCOV2 NOT DETECTED (Reference Range for this test is Not Detected) 05/27/2024 5:48 PM BLENDING MACHINE FEEDER [facility] Comment:This test was perfor med by a Reverse Operating Room Surgical Technician PCR Method. Swab NASOPHARYNGEAL STRUCTURE / Unknown Non-Phlebotomy Collection / Unknown 05/27/2024 4:47 PM BLENDING MACHINE FEEDER 05/27/2024 5:03 PM BLENDING MACHINE FEEDER Arturo Barr PAC MICROBIOLOGY - GENER AL ORDERABLES Final Result [facility] [address] [place] [address] * EKG 12 LEAD (05/27/2024 3:41 PM BLENDING MACHINE FEEDER) Only the most recent of2 resultswithin the time period is included. Ventricular Rate 112 BPM EXTERNAL EKG Atrial Rate 112 BPM EXTERNAL EKG P-R Interval 130 ms EXTERNAL EKG QRS Duration 70 ms EXTERNAL EKG Q-T Duration 310 ms EXTERNAL EKG QTC CALCULATION 423 ms EXTERNAL EKG P Leo 67 degrees EXTERNAL EKG R Leo 79 degrees EXTERNAL EKG T Leo 22 degrees EXTERNAL EKG 05/27/2024 3:41 PM BLENDING MACHINE FEEDER Impressions EXTERNAL EKG - 05/29/2024 11:02 PM BLENDING MACHINE FEEDER Sinus tachycardia Otherwise normal ECG When compared with ECG of 21-MAY-2024 12:29, QRS axis shifted right Confirmed by Guillermo Nash ([id number]) on 05/29/2024 11:02:51 PM Narrative Procedure Note Guillermo Nash MD - 05/29/2024 IMPRESSION: Sinus tachycardia Otherwise normal ECG When compared with ECG of 21-MAY-2024 12:29, QRS axis shifted right Confirmed by Guillermo Nash ([id number]) on 05/29/2024 11:02:51 PM Srinivas Henderson MD IMG ECG ORDERABLES Final Result EXTERNAL EKG * TROPONIN I, HIGH SENSITIVITY (HSTRP) (05/27/2024 3:33 PM BLENDING MACHINE FEEDER) [facility] TROPONIN I, HIGH SENSITIVITY- PRATT <3 <=14 ng/L 05/27/2024 4:41 PM BLENDING MACHINE FEEDER [facility] Comment: High-sensitivity troponin I results are reported in ng/L making the result appear to be 1,000 times higher than the contemporary troponin I value which is reported in ng/ml. Results from [facility]. Blood Venipuncture / Unknown 05/27/2024 3:33 PM BLENDING MACHINE FEEDER 05/27/2024 3:53 PM BLENDING MACHINE FEEDER Srinivas Henderson MD CHEMISTRY ORDERABLES Fin al Result Performing Organization Address City/[facility]/ZIP Co de Phone Number [facility] [address] [place] [address] * (ABNORMAL) Manual Differential (05/27/2024 3:33 PM BLENDING MACHINE FEEDER) BANDS % 1.0 % 05/27/2024 4:46 PM BLENDING MACHINE FEEDER [facility] NEUTROPHILS % 76.0(H) 47.0 - 73.0 % 05/27/2024 4:46 PM BLENDING MACHINE FEEDER [facility] LYMPHOCYTES % 15.0(L) 18.0 - 42.0 % 05/27/2024 4:46 PM BLENDING MACHINE FEEDER [facility] MONOCYTES % 7.0 4.0 - 12.0 % 05/27/2024 4:46 PM BLENDING MACHINE FEEDER [facility] MYELOCYTES % 1.0(H) <=0.0 % 05/27/2024 4:46 PM BLENDING MACHINE FEEDER [facility] NEUTROPHILS ABSOLUTE 9.78(H) 1.60 - 7.70 10(3)/mcL 05/27/2024 4:46 PM BLENDING MACHINE FEEDER [facility] LYMPHOCYTES ABSOLUTE 1.91 1.30 - 3.20 10(3)/mcL 05/27/2024 4:46 PM BLENDING MACHINE FEEDER [facility] MONOCYTES ABSOLUTE 0.89 0.20 - 1.00 10(3)/mcL 05/27/2024 4:46 PM [facility] RBC MORPHOLOGY CONSISTENT WITH INDICES Yes 05/27/2024 4:46 PM BLENDING MACHINE FEEDER [facility] POLYCHROMASIA 1+ 05/27/2024 4:46 PM BLENDING MACHINE FEEDER [facility] GIANT PLATELETS 1+ 4:46 PM BLENDING MACHINE FEEDER [facility] REACTIVE LYMPHOCYTES 7 05/27/2024 4:46 PM [facility] WBC MORPH STATUS Normal 05/27/19 25 4:46 PM [facility] Blood Venipuncture / Unknown 05/27/2024 3:33 PM BLENDING MACHINE FEEDER 05/27/2024 3:53 PM BLENDING MACHINE FEEDER Narrative [facility] - 05/27/2024 4:46 PM BLENDING MACHINE FEEDER Anisocytosis Macrocytosis us Srinivas Henderson MD HEMATOLOGY ORDERABLES Fi nal Result [facility] [address] [place] [address] * (ABNORMAL) CBC with Auto Differential (05/27/2024 3:33 PM BLENDING MACHINE FEEDER) Only the most recent of2 resultswithin the time period is included. WBC 12.70(H) 4.00 - 12.00 10(3)/mcL 05/27/2024 4:46 PM BLENDING MACHINE FEEDER [facility] RBC 4.55 3.80 - 5.30 10(6)/mcL 05/27/2024 4:46 PM BLENDING MACHINE FEEDER [facility] HEMOGLOBIN (HGB) 14.8 12.0 - 15.8 g/dL 05/27/2024 4:46 PM BLENDING MACHINE FEEDER [facility] HEMATOCRIT (HCT) 43.2 36.0 - 47.0 % 05/27/2024 4:46 PM BLENDING MACHINE FEEDER [facility] MCV 94.9 82.0 - 96.0 fL 05/27/2024 4:46 PM BLENDING MACHINE FEEDER [facility] MCH 32.5 26.0 - 34.0 pg 05/27/2024 4:46 PM [facility] MCHC 34.3 31.0 - 36.0 g/dL 05/27/2024 4:46 PM [facility] PLATELET COUNT 396 140 - 440 10(3)/[facility] 05/27/2024 4:46 PM [facility] RDW 12.7 11.8 - 15.5 % 05/27/2024 4:46 PM [facility] MPV 9.6(L) 9.7 - 12.4 fL 05/27/2024 4:46 PM [facility] NRBC PER 100 WBC 0 05/27/2024 4:46 PM [facility] RESULTS ARE CONSISTENT WITH PERIPHERAL SMEAR REVIEW Yes 05/27/2024 4:46 PM [facility] Blood Venipuncture / Unknown 05/27/2024 3:33 PM [employer]INE [employer]ER 05/27/2024 3:53 PM [employer]ACHINE FEEDER us Srinivas Henderson MD HEMATOLOGY ORDERABLES Fi nal Result [facility] [place] [address] * Cortisol (05/27/2024 3:33 PM BLENDING MACHINE FEEDER) CORTISOL 13.1 mcg/dL 05/27/2024 6:5 1 PM [employer]INE [employer] [facility] Blood Venipuncture / Unknown 05/27/2024 3:33 PM BLENDING MACHINE FEEDER 05/27/2024 3:53 PM BLENDING MACHINE FEEDER Narrative [facility] - 05/27/2024 6:51 PM BLENDING MACHINE FEEDER AM: 4 TO 19 mcg/dL PM: Approx. Half of AM Value us Arturo Collins Momo PAC CHEMISTRY ORDERABLES Final Result [facility] [place] [address] * (ABNORMAL) Comprehensive Metabolic Panel (Cmp) [id number] (05/27/2024 3:33 PM BLENDING MACHINE FEEDER) Only the most recent of2 resultswithin the time period is included. Pathologist [facility] SODIUM 137 136 - 145 mmol/L 05/27/2024 4:36 PM [facility] POTASSIUM 4.6 3.5 - 5.1 mmol/L 05/27/2024 4:36 PM [facility] CHLORIDE 106 98 - 107 mmol/L 05/27/2024 4:36 PM [facility] CO2, VENOUS 21(L) 22 - 30 mmol/L 05/27/2024 4:36 PM [facility] ANION GAP 14.6 <18.0 mmol/L 05/27/2024 4:36 PM [facility] GLUCOSE 164(H) 70 - 99 mg/dL 05/27/2024 4:36 PM [facility] BUN 15 5 - 18 mg/dL 05/27/2024 4:36 PM [facility] CREATININE, BLOOD 0.85 0.60 - 1.00 mg/dL 05/27/2024 4:36 PM [facility] BUN/CREATININE RATIO 18 12 - 20 ratio 05/27/2024 4:36 PM [facility] TOTAL PROTEIN 7.5 6.0 - 8.0 g/dL 05/27/2024 4:36 PM [facility] ALBUMIN 4.4 3.5 - 5.0 g/dL 05/27/2024 4:36 PM [facility] A/G RATIO 1.4 1.0 - 2.2 05/27/2024 4:36 PM [facility] CALCIUM 9.8 8.7 - 10.5 mg/dL 05/27/2024 4:36 PM [employer]ING MACHINE FEEDER [facility] T BILI 0.3 0.2 - 1.2 mg/dL 05/27/2024 4:36 PM [facility] SGOT (AST) 27 6 - 42 U/L 05/27/2024 4:36 PM [facility] SGPT (ALT) 53 6 - 55 U/L 05/27/2024 4:36 PM [facility] ALKALINE PHOSPHATASE 55 40 - 150 U/L 05/27/2024 4:36 PM [employer]ING [employer]INE FEEDER [facility] GFR, ESTIMATED >60 >=60 05/27/2024 4:36 PM [facility] Comment: Creatinine Clearance is the preferred criteria for selecting drug dose adjustments in renally impaired patients. The GFR is provided as additional pertinent clinical information. GFR is reported in mL/min/1.73 sq m. Calculation based on the Chronic Kidney Disease Epidemiology Collaboration (CKD- EPI) equation refit without adjustment for race. GFR, EST. >60 >=60 025 4:36 PM BLENDING MACHINE FEEDER [facility] GFR, EST. NONAFRICAN >60 >=60 05/27/2024 4:36 PM [facility] Blood Venipuncture / Unknown 05/27/2024 3:33 PM BL[employer]ING MACHINE FEEDER 05/27/2024 3:53 PM BLENDING MACHINE FEEDER us Srinivas Henderson MD CHEMISTRY ORDERABLES Fin al Result [facility] [place] [address] * EKG SCAN (05/27/2024 12:00 AM BLENDING MACHINE FEEDER) Only the most recent of2 resultswithin the time period is included. 05/27/2024 us Provider Scan IMG ECG ORDERABLES Final Result Performing Organization Address City/[facility] Co de Phone Number RESULTING AGENCY * Ur Test Qual (05/21/2024 1:34 PM BLENDING MACHINE FEEDER) PREG TEST,MONOCLONA L Negative 05/21/2024 1:49 PM BLENDING MACHINE FEEDER [facility] Urine URINE SPECIMEN / Unknown Non-Phlebotomy Collection / Unknown 05/21/2024 1:34 PM BLENDING MACHINE FEEDER 05/21/2024 1:34 PM BLENDING MACHINE FEEDER Peggy Epps MD URINE ORDERABLES Final Result Performing Organization Address [facility] Co de Phone Number [facility] [place] [address] * Gold Top Tube (05/21/2024 12:23 PM BLENDING MACHINE FEEDER) Blood No Phlebotomy Charged / Unknown 05/21/2024 12:23 PM BLENDING MACHINE FEEDER 05/21/2024 12:32 PM BLENDING MACHINE FEEDER Peggy Epps MD CHEMISTRY ORDERABLES Final Re sult Performing Organization Address [facility] Co de Phone Number [facility] [place] [address] * Blue Top Tube (05/21/2024 12:23 PM BLENDING MACHINE FEEDER) Blood No Phlebotomy Charged / Unknown 05/21/2024 12:23 PM BLENDING MACHINE FEEDER 05/21/2024 12:32 PM BLENDING MACHINE FEEDER Peggy Epps MD HEMATOLOGY ORDERABLES Final R esult [facility] [place] [address] * (ABNORMAL) HEMOGLOBIN A1C W/ ESTIMATED GLUCOSE (10/04/2018 5:16 PM CDT) HGB-A1C 6.3(H) 4.0 - 6.0 % 10/04/2018 6:11 PM CDT [facility] Est Average Glucose 134.1 mg/dL 10/04/2018 6:11 PM CDT [facility] Blood specimen (specimen) Venipuncture / Unknown 10/04/2018 5:16 PM CDT 10/04/2018 5:31 PM CDT Narrative [facility] - 10/04/2018 6:11 PM CDT HEMOGLOBIN A1C: DIABETIC PATIENTS: WELL-CONTROLLED: 6.2 - 7.0 INTERMEDIATE WELL-CONTROLLED: 7.0 - 9.0 POORLY-CONTROLLED: >9.0 Sarah Pierson MD CHEMISTRY ORDERABLES Final Result [facility] [place] [address] * Hepatitis C Antibody (11/19/2015 6:47 PM CDT) Pathologist [facility] hepatitis C antibody 0.38 <1 S/CO 11/20/2015 10:14 PM CDT [facility] Comment: Signal/Cutoff ratio < 0.79 is Nondetected Signal/Cutoff ratio 0.80-0.99 is Grayzone Signal/Cutoff ratio > 0.99 is Detected Supplemental assays are recommended if signal/cutoff ratio is >/=1.00. Signal/cutoff ratio result >/= 5.00 is 97% predictive of positivity for recombinant immunoblot assay (RIBA) and will be reported to the [place] [facility] Public [facility] as required. Blood specimen (specimen) Venipuncture / Unknown 11/19/2015 6:47 PM CDT 11/19/2015 6:54 PM CDT us Arturo Liun PAC CHEMISTRY ORDERABLES Final Result [facility] [address] [place] [address], [place] from Last 3 Months or Most Recently Relevant to Health Maintenance Insurance MEDICARE [place]ICAID [place] [facility] [place] [address] [address] [place] [address] [facility] [place] [address] Care Teams [employer] Apprentice Relationship Specialty Start Date End Date Juan Lyons MD [address] [facility] [place] [address] PCP - General Family Medicine 11/12/17
[2024-06-28 16:46] VITALS: BP 137/98; PULSE 112; RESP 20; TEMP 36.3; O2SAT 96
--- NOTE | 2024-06-28 16:59 | ED.GENADULT ---
HPI - General Adult General Chief complaint: Urogenital-Female Stated complaint: poss UTI Source: patient Mode of arrival: ambulatory Limitations: no limitations History of Present Illness HPI narrative: Pt presents for evaluation of what she believes to be a urinary tract infection. Symptom onset yesterday. She reports mild dysuria, low back pain bilaterally some mild suprapubic cramping. She states her temperature at home was 100.3F today. She denies any vomiting, vaginal bleeding or discharge. She has had similar symptoms in the past. She indicates during loss episodes she has gone to have a medical evaluation and her urine usually does not have an evidence of infection. She typically takes cranberry pills for a few days and her symptoms resolved. Related Data Home Medications ?Medication ?Instructions ?Recorded ?Confirmed ?Last Taken ?Type azelastine 137 mcg (0.1 %) nasal See Rx Instructions .Route .COMPLEX 10/06/20 01/20/22 Unknown History spray albuterol sulfate 90 mcg/actuation 2 puff inhalation Q4H PRN sob 03/20/21 01/20/22 Unknown History aerosol inhaler blood-glucose sensor (Dexcom G6 03/20/21 01/20/22 Unknown History Sensor device) blood-glucose transmitter (Dexcom 03/20/21 01/20/22 Unknown History G6 Transmitter device) budesonide-formoterol HFA 160 2 puff inhalation BID 03/20/21 01/20/22 Unknown History mcg-4.5 mcg/actuation aerosol inhaler (Symbicort) butalbital 50 mg-acetaminophen 325 See Rx Instructions .Route 03/20/21 01/20/22 Unknown History mg tablet .COMPLEX PRN Headache clonazepam 0.5 mg tablet 0.25 mg PO TID 03/20/21 01/20/22 Unknown History dexamethasone sodium phosphate 4 See Rx Instructions .Route 03/20/21 01/20/22 Unknown History mg/mL injection solution .COMPLEX PRN pain epinephrine 0.3 mg/0.3 mL See Rx Instructions .Route 03/20/21 01/20/22 Unknown History injection, auto-injector .COMPLEX PRN Anaphylaxis fluticasone propionate 50 1 spray intranasal BID 03/20/21 01/20/22 Unknown History mcg/actuation nasal spray,suspension hydroxyzine HCl 10 mg tablet 10 mg PO QID PRN Anxiety 03/20/21 01/20/22 Unknown History insulin lispro 100 unit/mL 5 unit subcut AC 03/20/21 01/20/22 Unknown History subcutaneous pen ipratropium 0.5 mg-albuterol 3 mg 3 ml inhalation Q4H PRN sob 03/20/21 01/20/22 Unknown History (2.5 mg base)/3 mL nebulization soln levocetirizine 5 mg tablet 5 mg PO QID 03/20/21 01/20/22 Unknown History levothyroxine 25 mcg tablet 25 mcg PO DAILY 03/20/21 01/20/22 Unknown History mometasone-formoterol HFA 200 2 puff inhalation BID 03/20/21 01/20/22 Unknown History mcg-5 mcg/actuation aerosol inhaler (Dulera) pen needle, diabetic 32 gauge x 03/20/21 01/20/22 Unknown History (BD Isela 2nd Gen Pen Needle) promethazine 25 mg tablet 1 mg PO QID 03/20/21 01/20/22 Unknown History spironolactone 50 mg tablet 50 mg PO TID 03/20/21 01/20/22 Unknown History tirzepatide subcut 05/04/24 Unknown History Allergies Allergy/AdvReac Type Severity Reaction Status Date / Time herr Allergy Severe Anaphylaxis Verified 05/04/24 14:14 chloroxylenol Allergy Severe Anaphylaxis Verified 05/04/24 14:14 chocolate flavor Allergy Severe Anaphylactic Verified 05/04/24 14:14 Shock omalizumab (From Xolair) Allergy Severe Anaphylaxis Verified 05/04/24 14:14 peanut Allergy Severe Anaphylactic Verified 05/04/24 14:14 Shock ranitidine Allergy Severe Anaphylactic Verified 05/04/24 14:14 Shock red dye Allergy Severe Anaphylactic Verified 05/04/24 14:14 Shock Sulfa (Sulfonamide Allergy Severe Anaphylactic Verified 05/04/24 14:14 Antibiotics) Shock clindamycin Allergy Intermediate Hives Verified 05/04/24 14:14 famotidine Allergy Intermediate Rash Verified 05/04/24 14:14 metoclopramide Allergy Intermediate Hives Verified 05/04/24 14:14 montelukast Allergy Intermediate Hives Verified 05/04/24 14:14 sertraline Allergy Intermediate Hives Verified 05/04/24 14:14 almotriptan (From Axert) Allergy Mild Rash Verified 05/04/24 14:14 apple Allergy Mild Hives / Verified 05/04/24 14:14 [place] ciprofloxacin Allergy Mild Rash Verified 05/04/24 14:14 amoxicillin Allergy Unknown Hives Verified 05/04/24 14:14 banana Allergy Unknown Anaphylaxis Verified 05/04/24 14:14 cefprozil Allergy Unknown Hives / Verified 05/04/24 14:14 [place] celecoxib Allergy Unknown Hives / Verified 05/04/24 14:14 [place] gluten Allergy Unknown Itching Verified 05/04/24 14:14 heparin Allergy Unknown Unknown Verified 05/04/24 14:14 lansoprazole Allergy Unknown Rash Verified 05/04/24 14:14 morphine Allergy Unknown Hives / Verified 05/04/24 14:14 [place] oats Allergy Unknown Rash Verified 05/04/24 14:14 Penicillins Allergy Unknown Hives / Verified 05/04/24 14:14 [place] potassium guaiacolsulfonate Allergy Unknown Hives / Verified 05/04/24 14:14 [place] sesame oil Allergy Unknown Hives Verified 05/04/24 14:14 sesame seed Allergy Unknown Hives Verified 05/04/24 14:14 sucralfate Allergy Unknown Hives Verified 05/04/24 14:14 sunflower oil Allergy Unknown Wheezing Verified 05/04/24 14:14 sunflower seed Allergy Unknown Wheezing Verified 05/04/24 14:14 tetracycline Allergy Unknown Hives / Verified 05/04/24 14:14 [place] zolmitriptan (From Zomig) Allergy Unknown Unknown Verified 05/04/24 14:14 zolpidem (From Ambien) Allergy Unknown Unknown Verified 05/04/24 14:14 Review of Systems Review of Systems: CONSTITUTIONAL: Denies fever, chills, or sweats. EYES: Denies visual changes, redness, or discharge. ENT: Denies rhinorrhea, congestion, sore throat, or otalgia. CARDIOVASCULAR: Denies chest pain, palpitations, or edema. RESPIRATORY: Denies cough or dyspnea. GASTROINTESTINAL: Denies abdominal pain, nausea, vomiting, or diarrhea. GENITOURINARY: Reports dysuria and suprapubic discomfort. Denies urinary frequency, urgency, hesitancy, vaginal bleeding or discharge SKIN: Denies rash or itching. MUSCULOSKELETAL: Reports low back pain. Denies joint pain, or myalgia. NEUROLOGIC: Denies headache, numbness, dizziness, or weakness. PSYCHIATRIC: Denies anxiety or depression. 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 HEAD: Normocephalic, atraumatic. EYES: PERRLA and EOMI. ENT: Nares clear, no rhinorrhea or epistaxis. Mucous membranes moist. Oropharynx without tonsillar hypertrophy exudate or other lesions. Bilateral TMs pearly edmond nonbulging NECK: Supple. No adenopathy or masses. No carotid bruits or JVD CHEST: Clear to auscultation. No respiratory distress. No wheezes rales or rhonchi HEART: Regular rate and rhythm. No murmur heard. Normal peripheral pulses. ABDOMEN: Soft, nontender, nondistended, normal active bowel sounds. BACK: bilateral CVA tenderness EXTREMITIES: Normal range of motion. No edema. SKIN: Warm, dry, no rash. NEURO: No focal deficits. Alert and oriented x3. PSYCH: Normal mood and affect. Course Course Emergency Course: This is a 43-year-old female who presented for evaluation of what she believed to be a urinary tract infection. Urine today without evidence of infection. I did offer to transfer her to the ER for labs and CT imaging. She declined. She states she has had similar symptoms in the past which resolved with intake of cranberry pills. She will plan to go home and do that. She will increase fluid intake and follow up with her primary provider. If she has persistent or worsening symptoms, she will go to the emergency department. Level of Care: Express Care Visit Vital Signs Vital signs: Vital Signs Temperature 36.3 C L 06/28/24 16:46 Pulse Rate 112 H 06/28/24 16:46 Respiratory Rate 20 06/28/24 16:46 Blood Pressure 137/98 H 06/28/24 16:46 Pulse Oximetry 96 06/28/24 16:46 Oxygen Delivery Room Air 06/28/24 16:46 Temperature 36.3 C L 06/28/24 16:46 Pulse Rate 112 H 06/28/24 16:46 Respiratory Rate 20 06/28/24 16:46 Blood Pressure 137/98 H 06/28/24 16:46 Pulse Oximetry 96 06/28/24 16:46 Oxygen Delivery Room Air 06/28/24 16:46 Medical Decision Making Vital Signs Vital Signs: Vital Signs Temperature 36.3 C L 06/28/24 16:46 Pulse Rate 112 H 06/28/24 16:46 Respiratory Rate 20 06/28/24 16:46 Blood Pressure 137/98 H 06/28/24 16:46 Pulse Oximetry 96 06/28/24 16:46 Oxygen Delivery Room Air 06/28/24 16:46 Temperature 36.3 C L 06/28/24 16:46 Pulse Rate 112 H 06/28/24 16:46 Respiratory Rate 20 06/28/24 16:46 Blood Pressure 137/98 H 06/28/24 16:46 Pulse Oximetry 96 06/28/24 16:46 Oxygen Delivery Room Air 06/28/24 16:46 Lab Data Labs: Lab Results 06/28/24 Range/Units 16:58 POC Urine Color Yellow POC Urine Clarity Clear POC Urine pH 7.0 POC Ur Specif [place] 1.020 POC Urine Protein Negative (Negative) POC Ur Glucose (UA) Negative (Negative) POC Urine Ketones Negative (Negative) POC Urine Blood Negative (Negative) POC Urine Nitrite Negative (Negative) POC Urine Bilirubin Negative (Negative) POC Urine Urobilinogen 0.2 POC U Leukocyte Esteras Negative (Negative) Discharge Plan Discharge Clinical Impression: Dysuria Patient Disposition: Home, Self-Care Condition: Stable Instructions: Antibiotic Form, Dysuria (ED) Additional Instructions: MAKE SURE TO STAY WELL HYDRATED IF YOU HAVE WORSENING SYMPTOMS, PLEASE GO TO THE ER Patient Language: [place] Island[place] Prescriptions: No Action ipratropium-albuterol 0.5 mg-3 mg(2.5 mg base)/3 mL solution for nebulization 3 ml INHALATION Q4H PRN (Reason: sob) clonazepam 0.5 mg tablet 0.25 mg PO TID butalbital-acetaminophen 50-325 mg tablet See Rx Instructions .ROUTE .COMPLEX PRN (Reason: Headache) Rx Instructions: as prescribed levothyroxine 25 mcg tablet 25 mcg PO DAILY promethazine 25 mg tablet 1 mg PO QID dexamethasone sodium phosphate 4 mg/mL solution See Rx Instructions .ROUTE .COMPLEX PRN (Reason: pain) Rx Instructions: as prescribed epinephrine 0.3 mg/0.3 mL auto-injector See Rx Instructions .ROUTE .COMPLEX PRN (Reason: Anaphylaxis) Rx Instructions: as prescribed albuterol sulfate 90 mcg/actuation HFA aerosol inhaler 2 puff INHALATION Q4H PRN (Reason: sob) hydroxyzine HCl 10 mg tablet 10 mg PO QID PRN (Reason: Anxiety) fluticasone propionate 50 mcg/actuation spray,suspension 1 spray INTRANASAL BID spironolactone 50 mg tablet 50 mg PO TID insulin lispro 100 unit/mL insulin pen 5 unit SUBCUT AC budesonide-formoterol [Symbicort] 160-4.5 mcg/actuation HFA aerosol inhaler 2 puff INHALATION BID levocetirizine 5 mg tablet 5 mg PO QID (DME) Dexcom G6 Sensor Device MISCELLANEOUS (DME) Dexcom G6 Transmitter Device MISCELLANEOUS (DME) pen needle, diabetic [BD Isela 2nd Gen Pen Needle] 32 gauge x 5/32 needle MISCELLANEOUS Dulera 200-5 mcg/actuation HFA aerosol inhaler 2 puff INHALATION BID tirzepatide [Mounjaro] subcut valacyclovir 1 gram tablet 1,000 mg PO TID 7 Days Qty: 21 0RF azelastine 137 mcg (0.1 %) aerosol,spray See Rx Instructions .ROUTE .COMPLEX Rx Instructions: as prescribed Follow-up/Referrals: Corinne,Juan Martini MD [Primary Care Provider] - Time of Disposition: 17:07
[2024-06-28 17:04] LABS: EDUAAPPEAR Clear; EDUABILI Negative (Negative); EDUABLOOD Negative (Negative); EDUACOLOR1 Yellow; EDUAGLUCOSE Negative (Negative); EDUAKETONE Negative (Negative); EDUALEUKO Negative (Negative); EDUANITRATE Negative (Negative); EDUAPROTEIN Negative (Negative); EDUAUROBILI 0.2
== END 2024-06-28 17:13 | disposition home or self-care (01) ==
PROVIDERS: Emergency Provider Nurse Practitioner; PCP Family Medicine
DX: R30.0 Dysuria (principal); E11.9 Type 2 diabetes mellitus without complications; E06.3 Autoimmune thyroiditis
CPT/HCPCS: 81003; 99212; G0463

== ENCOUNTER 2024-06-29 15:13 | Emergency (ER) | payer MEDICARE, MEDICAID, SELFPAY ==
--- OUTSIDE RECORDS SUMMARY | 2024-06-29 15:15 | XMS_ITS | Clinical Summary ---
Author Organization [facility] Address [address] [place] [phone] Care Team Providers Care Payroll Clerk Name Role Phone Juan Lyons MD Primary Care Provider [phone] Sarah Pierson MD Unavailable [phone] Silvia Alonso NP Unavailable [phone] Steve Segovia MD Unavailable [phone] Allergies Active Allergy Reactions Criticality Noted Date [...] High 08/18/2016 Reaction: Rash, Sulfanilamide Anaphylaxis High [place] Oil Shortness of breath High 08/18/2016 Tetracycline [...] long-term current use of insulin ([facility]) INJECT 10-15 BEFORE MEALS PLUS SLIDING SCALE [...] long-term current use of insulin ([facility]),Adrenal insufficiency,Acq uired hypothyroidism,Mu ltinodular thyroid,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 Consider PCSK9 therapy in [...] 04/15/2021 Assessment & Plan (05/16/2021 12:00 PM INSEAMER): Pfizer vaccine 06/11/20, 07/19/20, 12/10/20; COVID 04/15/2021 Has immunity to COVID-19 virus 11/12/2020 Overview (05/17/2022): Pfizer coronavirus vaccine x 4 Assessment & Plan (05/17/2022 7:56 AM INSEAMER): Fully vaccinated Assessment & Plan (11/08/2021 6:46 AM CDT): Fully vaccinated, eligible for booster. Assessment & Plan (08/08/2021 12:45 PM CDT): Fully vaccinated, eligible for booster. Assessment & Plan (05/13/2021 4:32 PM INSEAMER): Pfizer coronavirus vaccine 12/10/2020, 07/19/2020, 06/21/2020 Type 2 diabetes mellitus, wi th long-term current use of insulin 03/02/2020 Assessment & Plan (05/08/2024 11:42 AM INSEAMER): Doing reasonably well with mealtime Humalog, weekly Mounjaro and low dose Tresiba basal insulin. Assessment & Plan (10/27/2023 7:38 PM CDT): Doing reasonably well with mealtime Humalog, weekly Mounjaro and no basal insulin. Assessment & Plan (04/20/2023 7:38 PM INSEAMER): Glucoses within a reasonably level of control [...] A1C Assessment & Plan (05/18/2022 11:01 AM INSEAMER): Glucoses a little higher recently because of [...] meals Assessment & Plan (05/16/2021 11:58 AM INSEAMER): Her insulin requirements have increased because of recent elevations in her glucocorticoids, but she is managing this well. Need to maintain a good margin of safety Assessment & Plan (02/14/2021 1:56 PM INSEAMER): -Currently taking Humalog + Victoza -Dexcom download [...] change. Assessment & Plan (06/11/2020 10:43 AM INSEAMER): Glucoses often above target associated with fluctuations in glucocorticoids. She checks her glucoses four times daily and takes Humalog sliding scale 4 times daily to adjust based on her glucose levels. She should benefit greatly from a Dexcom CGM device. Need f/u HA1c level Assessment & Plan (03/02/2020 10:01 AM INSEAMER): Related to steroids, A1c now within a [...] cortisol response and actually improve cortisol production. https://www.sciencedirect.com/science/article/pii/V595709314583523U Previously reviewed hormonal control methods and her [...] short course but this is not a usp solution Since visit 05/03/2020, her bleeding has resolved and her adrenal crises have markedly improved. She would like to try 10 mg Provera to see if this improves her symptoms even more. Reviewed this is a reasonable plan. Acquired hypothyroidism 06/02/2019 Assessment & Plan (05/08/2024 11:40 AM INSEAMER): Clinically doing well on increased dose Assessment & Plan (10/27/2023 7:39 PM CDT): Clinically euthyroid. Assessment & Plan (04/20/2023 7:36 PM INSEAMER): Clinically euthyroid but needs f/u labs Assessment [...] TFT Assessment & Plan (05/18/2022 11:00 AM INSEAMER): Clinically euthyroid Assessment & Plan (02/08/2022 12:57 [...] currently Assessment & Plan (05/16/2021 12:01 PM INSEAMER): Clinically euthyroid, continue current levothyroxine Assessment & Plan (02/14/2021 1:56 PM INSEAMER): -Appears euthyroid on replacement -Will continue same levothyroxine dose at 100 mcg daily -Reviewed proper ways to take levothyroxine replacement -Repeat TFT Assessment & Plan (11/12/2020 3:19 PM CDT): Clinically euthyroid and stable Assessment & Plan (2020 12:08 PM CDT): Clinically euthyroid, doing well Assessment & Plan (06/11/2020 10:45 AM INSEAMER): Clinically euthyroid, but needs f/u labs due to alterations in her sex hormone status. Assessment & Plan (03/02/2020 10:56 AM INSEAMER): Clinically euthyroid, doing well. If she were [...] 07/10/2018 Assessment & Plan (03/02/2020 10:00 AM INSEAMER): Occasional glucose excursions, related to diet, steroids but A1c within an acceptable range Assessment & Plan (11/25/2019 7:43 AM CDT): She has some nausea with the Victoza, but trying to work this through. Glucoses within a reasonable margin of safety and she is monitoring appropriately. Assessment & Plan (02/21/2019 2:25 PM INSEAMER): Glucoses within a good margin of safety, [...] 06/13/2017 Assessment & Plan (03/02/2020 10:00 AM INSEAMER): Needs ongoing monitoring of vitamin-D status Left [...] her own safety due to differences in benefits clerk formulas. Assessment & Plan (11/22/2017 9:35 AM CDT): On admission, discussed with the patient, and due to her severe allergies (anaphylaxis) to multiple medications and Red 40 dye she prefers to take her home supply of medications. She will have her medications verified by pharmacy. This is to ensure her own safety due to differences in benefits clerk formulas. Assessment & Plan (11/21/2017 9:11 AM CDT): On admission, discussed with the patient, and due to her severe allergies (anaphylaxis) to multiple medications and Red 40 dye she prefers to take her home supply of medications. She will have her medications verified by pharmacy. This is to ensure her own safety due to differences in benefits clerk formulas. LLQ pain 02/26/2017 Assessment & Plan (02/26/2017 12:04 PM INSEAMER): We will proceed with transvaginal ultrasound to be completed at [facility]. Patient understands that if there is an [...] replacement. She is awaiting lab orders from beveling and edging machine operator. She is requesting we go ahead and draw these today: TSH and free T4. Further direction pending these results. Adrenal insufficiency 09/04/2016 Overview (09/08/2016): Adrenal insufficiency Assessment & Plan (05/08/2024 11:40 AM INSEAMER): She is adept at adjusting steroids to stresses, infections.Still tapering appropriately and adjusting insulin appropriately. Assessment & Plan (10/27/2023 7:39 PM CDT): She is adept at adjusting steroids to stresses, infections.Still tapering appropriately and adjusting insulin appropriately. Assessment & Plan (04/20/2023 7:37 PM INSEAMER): She is adept at adjusting steroids to [...] -She has after-hours phone number for the beveling and edging machine operator online user experience strategist -She has complaints of fatigue and muscular cramping. -Will check CMP and magnesium levels Assessment & Plan (05/18/2022 11:00 AM INSEAMER): Currently has required intercurrent stress dose steroids, gradually tapering down and clinically improved Assessment & Plan (02/08/2022 12:56 PM CDT): -Taking Hydrocortisone with dose adjustments per Dr. Pierson -She has after-hours phone number for the beveling and edging machine operator online user experience strategist and Dexamethasone emergency kit Assessment & Plan (11/11/2021 10:14 AM CDT): She is extremely knowledgeable and adapt in adjusting her hydrocortisone based on stress symptomatology. Assessment & Plan (08/09/2021 7:22 AM CDT): Clinically doing reasonably well right now, with gradually reducing steroids as tolerated. Some clinical stigmata of Randolph's, but clinically overall doing reasonably well right now Assessment & Plan (05/16/2021 12:01 PM INSEAMER): With recent COVID infection as well as a later allergic reaction, she has required higher doses of steroids, and needs to very gradually taper. She is very familiar with how to do this and has emergency dexamethasone, if needed. Assessment & Plan (02/14/2021 1:55 PM INSEAMER): -Taking Hydrocortisone with dose adjustments per Dr. Pierson -Needed stress doses this past weekend, but has not needed to take injection -She has after-hours phone number for the beveling and edging machine operator online user experience strategist Assessment & Plan (11/12/2020 3:19 PM CDT): [...] stable. Assessment & Plan (06/11/2020 10:45 AM INSEAMER): Overall pattern is reasonably stable. Unable to taper glucocorticoids during the spring allergy season due to occasional exacerbations. Assessment & Plan (03/02/2020 10:55 AM INSEAMER): She still has frequent episodes of symptomatic [...] density Assessment & Plan (02/21/2019 2:25 PM INSEAMER): She continues to be very symptomatic, is [...] symptoms. She was seen by her primary beveling and edging machine operator Dr. Pierson in the ED and he [...] symptoms. She was seen by her primary beveling and edging machine operator Dr. Pierson in the ED and he recommended hydrocortisone 50 mg IV q 6 h. She noted subjective improvement after the first dose. Endocrine consulted and will follow along - Decrease hydrocortisone 25mg q6 - Endocrine consulted, appreciate recs Assessment & Plan (11/21/2017 9:11 AM CDT): Her prednisone has been adjusted without improvement in her symptoms. She was seen by her primary beveling and edging machine operator Dr. 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 Hay fever 04/22/2014 Pleurodynia 03/13/2014 Shortness of breath 03/13/2014 Vitamin D deficiency 12/29/2013 Overview (07/15/2016): Vitamin D deficiency Assessment & Plan (05/08/2024 11:42 AM INSEAMER): Continue long-term supplement, particularly with glucocorticoid therapy Assessment & Plan (10/27/2023 7:35 PM CDT): Continue long-term supplement, particularly with glucocorticoid therapy Assessment & Plan (04/20/2023 7:38 PM INSEAMER): Continue long-term supplement, particularly with glucocorticoid therapy Assessment & Plan (10/14/2022 7:31 PM CDT): Continue long-term supplement, particularly with glucocorticoid therapy Assessment & Plan (05/18/2022 11:01 AM INSEAMER): Continue long-term supplement, particularly with glucocorticoid therapy Assessment & Plan (11/11/2021 10:15 AM CDT): Continue long-term supplement, particularly since she is requiring long-term steroids Assessment & Plan (08/09/2021 7:23 AM CDT): Continue long-term supplement. Recent level within target Assessment & Plan (05/16/2021 11:57 AM INSEAMER): Continue long-term supplement Assessment & Plan (02/14/2021 1:56 PM INSEAMER): -Continue current Vitamin D supplement -Repeat level Assessment & Plan (11/12/2020 3:20 PM CDT): Continue long-term supplement Assessment & Plan (2020 12:08 PM CDT): Continue chronic supplement Assessment & Plan (06/11/2020 10:51 AM INSEAMER): Also on chronic glucocorticoids. Continue chronic supplement. Recent level within target Assessment & Plan (03/02/2020 10:01 AM INSEAMER): On chronic supplement, but needs follow-up level particularly in the setting of a history of nephrolithiasis Assessment & Plan (11/25/2019 7:42 AM CDT): On steroids, needs to continue supplement as she is doing Assessment & Plan (09/19/2019 11:40 AM CDT): Recent level fine, continue long-term supplement Assessment & Plan (02/21/2019 2:26 PM INSEAMER): Continue ongoing supplement Assessment & Plan (12/04/2018 [...] MGRN Assessment & Plan (02/26/2017 12:03 PM INSEAMER): Medication refilled for p.r.n. use for headache. [...] NOS Assessment & Plan (06/11/2020 10:46 AM INSEAMER): Occasional exacerbations, requiring stress-dose steroids. Assessment & [...] Department Care Team Description 06/19/2024 Orders Only [facility] Endocrinology Metabolism and Lipid [address] [facility] 13th [place] [address] [place] [address] Geovanna Gan RMA Acquired hypothyroidism (Primary Dx) 06/18/2024 8:40 AM CDT - 06/18/2024 11:59 PM CDT Hospital Encounter [facility] Cancer [place] - Breast Imaging [address] [place] [address] [address] [place] [address] Family history of breast cancer; Abnormal MRI, breast; Encounter for screening mammogram for malignant neoplasm of breast Discharge Disposition: Discharge to home or self care 06/18/2024 8:00 AM CDT Office Visit [facility] Surgery [address] [facility] Floor [address] [place] [address] Maria Guadalupe Maya NP Encounter for screening mammogram for malignant neoplasm of breast (Primary Dx); Family history of breast cancer; At high risk for breast cancer 06/17/2024 Orders Only [facility] Endocrinology Metabolism and Lipid [address] [facility] 13th [place] [address] [place] [address] Geovanna Gan RMA Acquired hypothyroidism (Primary Dx) 06/16/2024 3:30 PM CDT Office Visit [facility] Allergy and Immunology [address] [place] [address] [address] [place] [address] Imani Sosa MD Moderate persistent asthma without complication (Primary Dx); Seasonal allergic rhinitis due to pollen; Urticaria; Anaphylaxis, subsequent encounter 06/04/2024 Telephone [facility] Allergy and Immunology [address] [facility] [address] [place] [phone] Esther Jay RN Ipratropium-Albuterol Prior Auth 05/26/2024 1:17 PM INSEAMER - 05/26/2024 11:59 PM INSEAMER Hospital Encounter [facility] [address] [place] [address] Persistent cough Discharge Disposition: Discharge to home or self care 05/26/2024 Orders Only [facility] Allergy and Immunology [address] [facility] [address] [place] [address] Imani Sosa MD Persistent cough (Primary Dx) 05/24/2024 Telephone [facility] Allergy and Immunology [address] [facility] [address] [place] [phone] Liu Mayer MD 05/13/2024 3:40 PM INSEAMER Office Visit [facility] Rheumatology [address] [facility] [address] [place] [address] Belinda Chadwick MD Autoimmune thyroiditis (Primary Dx); Tenosynovitis 05/13/2024 Telephone [facility] Surgery [address] [facility] Floor 8 [place] [address] Maria Guadalupe Maya NP Scheduling Appointments 05/13/2024 Orders Only [address] [address] Eli Salas MD 05/08/2024 11:00 AM INSEAMER Telemedicine [facility] Endocrinology Metabolism and Lipid [facility] 13th [place] [address] [place] [phone] Sarah Pierson MD Adrenal insufficiency (Primary Dx); Acquired hypothyroidism; Type 2 diabetes mellitus without complication, with long-term current use of insulin (HCC); Hyperlipidemia, unspecified hyperlipidemia type; Vitamin D deficiency 05/05/[address] [facility] [address] [facility] [place] [address] Eli Salas MD 05/01/2024 Orders Only [facility] Endocrinology Metabolism and Lipid [address] [facility] 13th [place] [address] [place] [address] Flores Gana, RMA Adrenal insufficiency; Acquired hypothyroidism; Multinodular thyroid 05/01/2024 Orders Only [facility] Endocrinology Metabolism and Lipid [address] [facility] 13th [place] [address] [place] [phone] Gan Geovanna, RMA Acquired hypothyroidism (Primary Dx) 04/30/2024 Telephone [facility] [address] [facility] 3rd Floor [address] [place] [phone] Jerrica Kapoor RN 04/22/2024 Telephone [facility] Surgery [address] [facility] Floor [address] [place] [phone] Sondra Granger, KONG Medical Question/Miscellaneou s 04/17/2024 5:21 PM INSEAMER - 04/17/2024 11:59 PM INSEAMER Hospital Encounter [facility] [address] [place] [address] Health care maintenance Discharge Disposition: Discharge to home or self care 04/17/2024 12:30 PM INSEAMER Office Visit [facility]s [facility] Gynecology Clinic [address] [facility] 3rd Floor [address] [place] [phone] Eli Salas MD Health care maintenance (Primary [...] allergy : Medical Management OTHER SURGICAL HISTORY [facility] chocholate allery OTHER SURGICAL HISTORY 04/09/2013 [...] Hx Other Medical 2008 ; Comm ents: [place]anning, preeclampsia/oligohydramnios; Outcome: 38 week 7 lb(s) 6 [...] Comme nts: shoulder 2013 ; Comme nts: José, preeclampsia; Outcome: 38 1/2 week 8 lb(s) [...] on file Legal Sex Female 10:17 AM INSEAMER Gender Identity Not on file Sexual Orientation Not on file Obstetrics History Para Term AB IAB SAB Ectopic Multiple Livin g Live Births 3 2 2 1 1 2 2 Date Outcome GA Total Labor Labor/2nd/3rd Weight Sex Type Anes PTL Alaina A1 A5 Name Clin 11/10 Term 38w 0d 3.345 kg (7 lb 6 oz) F CS-LT ranv Spinal N Livin g [place] Complications:Pre eclampsia/ Eclampsia 2011 SAB SAB 01/26 Term 39w 0d 4.026 kg (8 lb 14 oz) M CS-LT ranv Spinal Y Livin g [place] Complications:Pre eclampsia/ Eclampsia Last Filed Vital Signs Vital Sign Reading Time Taken Comments Blood Pressure 125/84 06/16/2024 3:41 PM CDT Pulse 101 06/16/2024 3:41 PM CDT Temperature 36.2 C (97.1 F) 05/13/2024 3:35 PM INSEAMER Respiratory Rate 18 04/17/2024 12:39 PM INSEAMER Oxygen Saturation 99% 06/16/2024 3:41 PM CDT [...] Read Routine (OP Routine) 05/26/2024 1:30 PM INSEAMER Persistent cough PAP WITH REFLEX TO HIGH RISK HPV Routine 04/17/2024 1:26 PM INSEAMER Health care maintenance THINPREP PROCESSING (MOLECULAR COMPONENT) Routine 04/17/2024 9:00 AM INSEAMER POCT HEMOGLOBIN A1C Routine 02/20/2024 11:13 AM INSEAMER Type 2 diabetes mellitus without complication, with [...] AM CDT Adrenal insufficiency Vitamin D deficiency [facility] (current) use of systemic steroids EGFR Routine 12/20/2022 9:35 AM CDT Adrenal insufficiency Type 2 diabetes mellitus without complication, with long-term current use of insulin (HCC) HEPATITIS C ANTIBODY Routine 04/18/2018 12:24 PM INSEAMER from Last 3 Months or Most Recently [...] compared to prior imaging studies performed at [facility] on 09/30/2021, 07/05/2022 and 04/18/2023. There [...] compared to prior imaging studies performed at [facility] on 09/30/2021, 07/05/2022 and 04/18/2023. There are scattered areas of fibroglandular density. There is no suspicious abnormality in either breast. Impression: There is no mammographic evidence of malignancy. Annual screening mammography is recommended. OVERALL FINAL ASSESSMENT: BI-RADS CATEGORY 1: Negative. Maria Guadalupe Maya NP IMG MAMMO PROCEDURES Final Res ult * X-ray chest 2 views (05/26/2024 1:30 PM INSEAMER) Anatomical Region Laterality Modality Body, Chest N/A Computed Radiogr aphy 05/29/2024 8:12 AM INSEAMER Narrative 05/29/2024 8:14 AM INSEAMER EXAM DESCRIPTION: XR CHEST PA LATERAL 2 [...] Jozef Light M.D. CH: TSERING Report ID: [id number] Reading Location: [id number] Procedure Note Jozef Light Jr., MD - [...] Jozef Light M.D. CH: TSERING Report ID: [id number] Reading Location: [id number] us Imani Sosa MD IMG XR PROCEDURES Final Res ult * Pap with reflex to High Risk HPV and Genotyping (Cytology Component) (04/17/2024 1:26 PM INSEAMER) Thin prep (Pap test) 04/17/2024 1:26 PM INSEAMER 04/17/2024 4:57 PM INSEAMER Narrative PATHOLOGY [facility] - 04/22/2024 3:52 PM INSEAMER EPIC results best viewed via link to PDF [facility] [place] [address] Note to Patients: This report may contain [...] Gender: F : 1980 (Age: 43) Address: [address] [place], [place] [id number] Hospital #: [id number] Service: UNKNOWN Location: Patient Type: [facility] SPECIMEN Taken: 04/17/2024 Received: 04/17/2024 Accessioned: 04/17/2024 Reported: 04/22/2024 Physician(s): Eli Salas M.D. FINAL INTERPRETATION SOURCE OF SPECIMEN Liquid based Thin Prep pap with Reflex HPV: STATEMENT OF ADEQUACY - Unsatisfactory specimen - Specimen processed and evaluated, but unsatisfactory for evaluation due to sparsely cellular sample - Cytolysis present [facility]/04/22/2024 15:52 CLARISSE Stern (ASCP) Report Electronically Reviewed [...] clinical information and biopsy results as indicated. [facility] Clinical Laboratory Improvement Amendments (CLIA) mandate that cytologic and histologic results be correlated for laboratory production quality analyst & improvement standards. FOR ALL HIGH-GRADE CASES [...] determined by the Surgical Pathology Department at [facility] as part of an ongoing software quality specialist program and in compliance with federally mandated [...] determined by the Surgical Pathology Department of [facility]. It has not been cleared or approved by the [place]. S. Food and Drug Administration. Eli Salas MD LAB CYTOLOGY ORDERABLES Fi nal Result PATHOLOGY [facility] 3rd Floor [place], [place] [phone] * ThinPrep processing (Molecular component) (04/17/2024 9:00 AM INSEAMER) ThinPrep processing (Molecular component) Specimen received for processing. [facility] Endocervical 04/17/2024 9:00 AM INSEAMER 04/21/2024 9:00 AM INSEAMER Eli Salas MD LAB BODY FLUIDS AND STOOLS ORDERABLES Final Result [facility] Department [place] [address] [facility] * POCT hemoglobin A1c (02/20/2024 11:13 AM INSEAMER) Hemoglobin A1C, POC 6.6 4.0 - 5.6 % Blood 02/20/2024 11:1 3 AM INSEAMER us Tova Hanna AUTOS DISASSEMBLER POINT OF CARE TEST ORDE RABLES Final Result * Albumin Creatinine Ratio, Urine (12/06/2023 8:29 AM CDT) Albumin Ur <12.0 mg/L Comment: Interpretive Data No reference range established. Current interpretive data was last revised 2018. Testing performed by: [facility], [address] [place] [address]., [id number] Creatinine Ur 51.9 mg/dL CHRISTI BA (JESSICA) Comment: Interpretive Data No reference range established. Current interpretive data was last revised 2018. Testing performed by: [facility], [address] [place] [address]., [id number] Albumin Creatinine Ratio, Ur <23 1 - 29 mg/g CHRISTI BA (JESSICA) Comment:Testing performed by : [facility], [address] [place] [address]., [id number] Urine 12/06/2023 8:29 AM CDT 12/06/2023 11:00 AM CDT us Tova Hanna NP LAB URINE ORDERABLES Fi nal Result CHRISTI BA (JESSICA) 1 [facility] Department [place] [address] * (ABNORMAL) Lipid panel (12/06/2023 8:29 AM [...] on 2017. Triglycerides 108 <=149 mg/dL [facility]STI TORRES) Comment: Interpretive Data Ages [...] mg/dL High: >160 mg/dL Calculated using the Shaikh LDL-C estimating equation. This equation was implemented on 2023. Prior to this date LDL-C was estimated using the Friedewald equation. Literature References: 1. Expert Panel on Integrated Guidelines for Cardiovascular Health and Risk Reduction in Children and Adolescents. Pediatrics 2011;128:S213 2. NCEP Expert Panel. Circulation 2004;110:227 3. Neel Cash et al. CM Cardiol. 2019August 07;5(5):540-548. doi: 10.1001/jamacardio.2020.0013 Current Interpretive Data was [...] CDT 12/06/2023 9:32 AM CDT Narrative [facility]RISTI TORRES) - 12/06/2023 10:11 AM CDT These lab test should be done fasting. This means do not eat or drink for at least 12 hours prior to getting your blood drawn. us Tova Hanna NP LAB BLOOD ORDERABLES nal Result [facility]STI TORRES) 1 [facility] Department [place] [address] * Dexa Axial Skeleton Bone Density 1 or 2 Site (11/28/2023 10:35 AM CDT) Anatomical Region Laterality Modality Body N/A Radiographic Elizabeth ging Narrative 11/28/2023 10:58 AM CDT Patient Name: Paige Abarca Date of : 1980 Date of scan: 11/28/2023 Bone mineral density was performed on a [employer] Discovery Densitometer. Based on machine cross-calibration and [...] by the International Society of Clinical Densitometry. [id number] Sarah Pierson MD IMG DXA PROCEDURES Final Re sult * eGFR (12/20/2022 9:35 AM CDT) eGFR 105 mL/min/1. 73 m2 [facility]STI BA (ODESSA) Comment: Interpretive Data Reference Interval Normal >/= [...] 9:35 AM CDT 12/20/2022 10:42 AM CDT Sarah Pierson MD LAB BLOOD ORDERABLES Final Result [facility]STI BA (ODESSA) 1 [facility] Department of Essential Testing [place], [place] [id number] * Hepatitis C antibody (04/18/2018 12:24 PM INSEAMER) Hep C Ab Non-Reactiv e Non-Reactiv e [facility] Blood specimen (specimen) 04/18/2018 12:24 PM INSEAMER 04/18/2018 3:00 PM INSEAMER Narrative [facility] - 04/18/2018 4:17 PM INSEAMER Laura Pineda MD LAB MICROBIOLOGY - GENERAL ORDERABLES Final Result [facility] [address] Department [place] [address] from Last 3 Months or Most Recently Relevant to Health Maintenance Insurance [facility] MEDICARE [facility] [employer] MEDICARE MEDICARE [facility] Address: [address] [address] [place] [address] IDPA Advance Directives For more information, please contact: [phone] * Full Code (Latest Code Status on File) Date Activated Date Inactivated Comments 11/21/2017 1:39 AM 11/23/2017 4:26 PM * Full Code Date Activated Date Inactivated Comments 06/10/2017 12:31 AM 06/18/2017 8:48 PM Care Teams Payroll Clerk Relationship Specialty Start Date End Date Juan Lyons MD PCP - General Family Medicine 11/08/17 Sarah Pierson MD Referring Physician Endocrinology Diabetes & Metabolism 12/04/18 Silvia Alonso NP Nurse Practitioner 01/27/20 Setve Segovia MD Resident Obstetrics and Gynecology 02/17/20
--- OUTSIDE RECORDS SUMMARY | 2024-06-29 15:15 | XMS_ITS | Encounter Summary ---
Author Organization [facility] Healthcare Address [address] [place] [address] Care Team Providers Care Acid Leveler Name Role Phone Juan Lyons MD Primary Care Provider [phone] Sarah Piersno MD Unavailable [phone] Silvia Alonso NP Unavailable [phone] Steve Segovia MD Unavailable [phone] Reason for Visit * Reason Onset Date Comments Scheduling Appointments 02/23/2021 Confirmi ng mammogram appt Encounter Details Date Type Department Care Team (Late st Contact Info) Description 02/23/2021 Telephone [facility] [address] [place] [phone] Deborah Reyes RT Scheduling Appointments (Confirming mammogram appt) Social History Tobacco Use Types Packs/Day Years Used Date Smoking Tobacco: Never Smokeless Tobacco: Never Alcohol Use Standard Drinks/Week Comments No 0 (1 standard drink = 0.6 oz pur e alcohol) Comments No Sex and Gender Information Value Date Recorded Sex Assigned at Not on file 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
--- OUTSIDE RECORDS SUMMARY | 2024-06-29 15:16 | XMS_ITS | Referral Summary ---
Author Organization [facility] Address [address] [place] [address] Care Team Providers Care Flying Instructor Name Role Phone Juan Lyons MD Primary Care Provider [phone] Sarah Pierson MD Unavailable [phone] Silvia Alonso NP Unavailable [phone] Steve Segovia MD Unavailable [phone] Encounters Date Type Department Care Team Description 06/19/2024 Orders Only [facility] Endocrinology Metabolism and Lipid [address] [facility] 13th [place] [address] [place] [address] Geovanna Gan RMA Acquired hypothyroidism (Primary Dx) 06/18/2024 8:40 AM CDT - 06/18/2024 11:59 PM CDT Hospital Encounter [facility] - Breast Imaging [facility] [address] [place] [address] Family history of breast cancer; Abnormal MRI, breast; Encounter for screening mammogram for malignant neoplasm of breast Discharge Disposition: Discharge to home or self care 06/18/2024 8:00 AM CDT Office Visit [facility] Surgery [address] [facility] Floor 8 [place] [address] Maria Guadalupe Maya NP Encounter for screening mammogram for malignant neoplasm of breast (Primary Dx); Family history of breast cancer; At high risk for breast cancer 06/17/2024 Orders Only [facility] Endocrinology Metabolism and Lipid [address] [facility] 13th [place] [address] [place] [address] Geovanna Gan RMA Acquired hypothyroidism (Primary Dx) 06/16/2024 3:30 PM CDT Office Visit [facility] All[facility] and Immunology [address] [facility] [address] [place] [phone] Imani Sosa MD Moderate persistent asthma without complication (Primary Dx); Seasonal allergic rhinitis due to pollen; Urticaria; Anaphylaxis, subsequent encounter 06/04/2024 Telephone [facility] All[facility] Immunology [address] [facility] [address] [place] [phone] Esther Jay RN Ipratropium-Albuterol Prior Auth 05/26/2024 1:17 PM LAWN MAINTENANCE WORKER - 05/26/2024 11:59 PM LAWN MAINTENANCE WORKER Hospital Encounter [facility] Center [address] [place] [address] Persistent cough Discharge Disposition: Discharge to home or self care 05/26/2024 Orders Only [facility] Immunology [address] [facility] [address] [place] [address] Imani Sosa MD Persistent cough (Primary Dx) 05/24/2024 Telephone [facility] All[facility] Immunology [address] [facility] [address] [place] [phone] Liu Mayer MD 05/13/2024 Telephone [facility] Surgery [address] [facility] Floor 8 [place] [phone] Maria Guadalupe Maya NP Scheduling Appointments 05/13/2024 Orders Only [address] [phone] Eli Salas MD 05/13/2024 3:40 PM LAWN MAINTENANCE WORKER Office Visit [facility] Rheumatology [address] [place] [address] [address] [place] [phone] Belinda Chadwick MD Autoimmune thyroiditis (Primary Dx); Tenosynovitis 05/08/2024 11:00 AM LAWN MAINTENANCE WORKER Telemedicine [facility] Endocrinology Metabolism and Lipid [address] [facility] 13th [place] [address] [place] [address] Sarah Pierson MD Adrenal insufficiency (Primary Dx); Acquired hypothyroidism; Type 2 diabetes mellitus without complication, with long-term current use of insulin (HCC); Hyperlipidemia, unspecified hyperlipidemia type; Vitamin D deficiency 05/05/2024 Orders Only [facility] 1 [facility] [place] [address] Eli Salas MD 05/01/2024 Orders Only [facility] Endocrinology Metabolism and Lipid [address] [facility] 13th [place] [address] [place] [address] Geovanna Gan RMA Adrenal insufficiency; Acquired hypothyroidism; Multinodular thyroid 05/01/2024 Orders Only [facility] Endocrinology Metabolism and Lipid [address] [facility] 13th [place] [address] [place] [address] Geovanna Gan RMA Acquired hypothyroidism (Primary Dx) 04/30/2024 Telephone [facility] [address] [place] [address] 3rd Floor [address] [place] [phone] Jerrica Kapoor RN 04/22/2024 Telephone [facility] Surgery [address] [facility] Floor 5 [place] [phone] Sondra Granger NP Medical Question/Miscellaneou s 04/17/2024 5:21 PM LAWN MAINTENANCE WORKER - 04/17/2024 11:59 PM LAWN MAINTENANCE WORKER Hospital Encounter [facility] [address] [place] [address] Health care maintenance Discharge Disposition: Discharge to home or self care 04/17/2024 12:30 PM LAWN MAINTENANCE WORKER Office Visit [facility] 3rd Floor [address] [place] [phone] Eli Salas MD Health care maintenance (Primary [...] High 08/18/2016 Reaction: Rash, Sulfanilamide Anaphylaxis High [place] [employer] Shortness of breath High 08/18/2016 Tetracycline [...] complication, with long-term current use of insulin ([facility]) INJECT 10-15 BEFORE MEALS PLUS SLIDING SCALE [...] insulin (HCC),Adrenal insufficiency,Acq uired hypothyroidism,Mu ltinodular thyroid,terminal manager (current) use of systemic steroids TAKE 1 AND 1/2 TABLETS BY MOUTH THREE TIMES DAILY 420 tablet 1 Active insulin degludec (TRESIBA) 100 unit/mL (3 mL) pen for injectionIndicati ons:Type 2 diabetes mellitus without complication, with long-term current use of insulin ([facility]) Inject 0.15 mL (15 Units total) under the skin daily 15 mL 1 024 Active baclofen (LIORESAL) 10 mg tabletIndications :Pain in both upper extremities Take 1/2 to 1 tablet as needed, by mouth, 3 times a day. 28 tablet 024 Active tirzepatide (Mounjaro) 15 mg/0.5 mL pen injectorIndicatio ns:Type 2 diabetes mellitus without complication, with long-term current use of insulin ([facility]) ADMINISTER 15MG UNDER THE SKIN EVERY 7 DAYS 6 mL 3 024 Active potassium chloride ER 8 mEq CR capsuleIndication s:Type 2 diabetes mellitus without complication, with long-term current use of insulin ([facility]),Adrenal insufficiency,Sev ere adrenal insufficiency,Dys uria TAKE 1 [...] complication, without long-term current use of insulin ([facility]) USE TO INJECT MEDICATIONS 5 TIMES DAILY [...] 1 capsule (88 mcg total) by mouth residential direct support professional before breakfast 30 capsule 11 025 Active [...] 1 capsule (75 mcg total) by mouth residential direct support professional before breakfast 90 capsule 3 025 2024 [...] Sarah Pierson MD Subject: RE: RE: Follow-up Yokastaskinny gomez, I forgot to ask you yesterday [...] be fine for you to decrease to 15/5 now, and see how you do. I [...] the three times a day dosing, so 15//5 for the next several days. Also, I [...] 12/06/2023 Assessment & Plan (05/08/2024 11:41 AM LAWN MAINTENANCE WORKER): Multiple drug allergies. Consider PCSK9 therapy in [...] 04/15/2021 Assessment & Plan (05/16/2021 12:00 PM LAWN MAINTENANCE WORKER): Pfizer vaccine 06/11/20, 07/19/20, 12/10/20; COVID 04/15/2021 Has immunity to COVID-19 virus 11/12/2020 Overview (05/17/2022): Pfizer coronavirus vaccine x 4 Assessment & Plan (05/17/2022 7:56 AM LAWN MAINTENANCE WORKER): Fully vaccinated Assessment & Plan (11/08/2021 6:46 AM CDT): Fully vaccinated, eligible for booster. Assessment & Plan (08/08/2021 12:45 PM CDT): Fully vaccinated, eligible for booster. Assessment & Plan (05/13/2021 4:32 PM LAWN MAINTENANCE WORKER): Pfizer coronavirus vaccine 12/10/2020, 07/19/2020, 06/21/2020 Type 2 diabetes mellitus, wi th long-term current use of insulin 03/02/2020 Assessment & Plan (05/08/2024 11:42 AM LAWN MAINTENANCE WORKER): Doing reasonably well with mealtime Humalog, weekly Mounjaro and low dose Tresiba basal insulin. Assessment & Plan (10/27/2023 7:38 PM CDT): Doing reasonably well with mealtime Humalog, weekly Mounjaro and no basal insulin. Assessment & Plan (04/20/2023 7:38 PM LAWN MAINTENANCE WORKER): Glucoses within a reasonably level of control [...] A1C Assessment & Plan (05/18/2022 11:01 AM LAWN MAINTENANCE WORKER): Glucoses a little higher recently because of [...] meals Assessment & Plan (05/16/2021 11:58 AM LAWN MAINTENANCE WORKER): Her insulin requirements have increased because of recent elevations in her glucocorticoids, but she is managing this well. Need to maintain a good margin of safety Assessment & Plan (02/14/2021 1:56 PM LAWN MAINTENANCE WORKER): -Currently taking Humalog + Victoza -Dexcom download [...] change. Assessment & Plan (06/11/2020 10:43 AM LAWN MAINTENANCE WORKER): Glucoses often above target associated with fluctuations in glucocorticoids. She checks her glucoses four times daily and takes Humalog sliding scale 4 times daily to adjust based on her glucose levels. She should benefit greatly from a Dexcom CGM device. Need f/u HA1c level Assessment & Plan (03/02/2020 10:01 AM LAWN MAINTENANCE WORKER): Related to steroids, A1c now within a [...] cortisol response and actually improve cortisol production. https://www.sciencedirect.com/science/article/pii/W575741092603814B Previously reviewed hormonal control methods and her [...] short course but this is not a half-way solution Since visit 05/03/2020, her bleeding has resolved and her adrenal crises have markedly improved. She would like to try 10 mg Provera to see if this improves her symptoms even more. Reviewed this is a reasonable plan. Acquired hypothyroidism 06/02/2019 Assessment & Plan (05/08/2024 11:40 AM LAWN MAINTENANCE WORKER): Clinically doing well on increased dose Assessment & Plan (10/27/2023 7:39 PM CDT): Clinically euthyroid. Assessment & Plan (04/20/2023 7:36 PM LAWN MAINTENANCE WORKER): Clinically euthyroid but needs f/u labs Assessment [...] TFT Assessment & Plan (05/18/2022 11:00 AM LAWN MAINTENANCE WORKER): Clinically euthyroid Assessment & Plan (02/08/2022 12:57 [...] currently Assessment & Plan (05/16/2021 12:01 PM LAWN MAINTENANCE WORKER): Clinically euthyroid, continue current levothyroxine Assessment & Plan (02/14/2021 1:56 PM LAWN MAINTENANCE WORKER): -Appears euthyroid on replacement -Will continue same levothyroxine dose at 100 mcg daily -Reviewed proper ways to take levothyroxine replacement -Repeat TFT Assessment & Plan (11/12/2020 3:19 PM CDT): Clinically euthyroid and stable Assessment & Plan (2020 12:08 PM CDT): Clinically euthyroid, doing well Assessment & Plan (06/11/2020 10:45 AM LAWN MAINTENANCE WORKER): Clinically euthyroid, but needs f/u labs due to alterations in her sex hormone status. Assessment & Plan (03/02/2020 10:56 AM LAWN MAINTENANCE WORKER): Clinically euthyroid, doing well. If she were [...] 07/10/2018 Assessment & Plan (03/02/2020 10:00 AM LAWN MAINTENANCE WORKER): Occasional glucose excursions, related to diet, steroids but A1c within an acceptable range Assessment & Plan (11/25/2019 7:43 AM CDT): She has some nausea with the Victoza, but trying to work this through. Glucoses within a reasonable margin of safety and she is monitoring appropriately. Assessment & Plan (02/21/2019 2:25 PM LAWN MAINTENANCE WORKER): Glucoses within a good margin of safety, [...] 06/13/2017 Assessment & Plan (03/02/2020 10:00 AM LAWN MAINTENANCE WORKER): Needs ongoing monitoring of vitamin-D status Left [...] her own safety due to differences in director of direct marketing formulas. Assessment & Plan (11/22/2017 9:35 AM CDT): On admission, discussed with the patient, and due to her severe allergies (anaphylaxis) to multiple medications and Red 40 dye she prefers to take her home supply of medications. She will have her medications verified by pharmacy. This is to ensure her own safety due to differences in director of direct marketing formulas. Assessment & Plan (11/21/2017 9:11 AM CDT): On admission, discussed with the patient, and due to her severe allergies (anaphylaxis) to multiple medications and Red 40 dye she prefers to take her home supply of medications. She will have her medications verified by pharmacy. This is to ensure her own safety due to differences in director of direct marketing formulas. LLQ pain 02/26/2017 Assessment & Plan (02/26/2017 12:04 PM LAWN MAINTENANCE WORKER): We will proceed with transvaginal ultrasound to [...] replacement. She is awaiting lab orders from mediation commissioner. She is requesting we go ahead and draw these today: TSH and free T4. Further direction pending these results. Adrenal insufficiency 09/04/2016 Overview (09/08/2016): Adrenal insufficiency Assessment & Plan (05/08/2024 11:40 AM LAWN MAINTENANCE WORKER): She is adept at adjusting steroids to stresses, infections.Still tapering appropriately and adjusting insulin appropriately. Assessment & Plan (10/27/2023 7:39 PM CDT): She is adept at adjusting steroids to stresses, infections.Still tapering appropriately and adjusting insulin appropriately. Assessment & Plan (04/20/2023 7:37 PM LAWN MAINTENANCE WORKER): She is adept at adjusting steroids to [...] -She has after-hours phone number for the mediation commissioner salesperson art objects -She has complaints of fatigue and muscular cramping. -Will check CMP and magnesium levels Assessment & Plan (05/18/2022 11:00 AM LAWN MAINTENANCE WORKER): Currently has required intercurrent stress dose steroids, gradually tapering down and clinically improved Assessment & Plan (02/08/2022 12:56 PM CDT): -Taking Hydrocortisone with dose adjustments per Dr. Pierson -She has after-hours phone number for the mediation commissioner salesperson art objects and Dexamethasone emergency kit Assessment & Plan (11/11/2021 10:14 AM CDT): She is extremely knowledgeable and adapt in adjusting her hydrocortisone based on stress symptomatology. Assessment & Plan (08/09/2021 7:22 AM CDT): Clinically doing reasonably well right now, with gradually reducing steroids as tolerated. Some clinical stigmata of Tam's, but clinically overall doing reasonably well right now Assessment & Plan (05/16/2021 12:01 PM LAWN MAINTENANCE WORKER): With recent COVID infection as well as a later allergic reaction, she has required higher doses of steroids, and needs to very gradually taper. She is very familiar with how to do this and has emergency dexamethasone, if needed. Assessment & Plan (02/14/2021 1:55 PM LAWN MAINTENANCE WORKER): -Taking Hydrocortisone with dose adjustments per Dr. Pierson -Needed stress doses this past weekend, but has not needed to take injection -She has after-hours phone number for the mediation commissioner salesperson art objects Assessment & Plan (11/12/2020 3:19 PM CDT): [...] stable. Assessment & Plan (06/11/2020 10:45 AM LAWN MAINTENANCE WORKER): Overall pattern is reasonably stable. Unable to taper glucocorticoids during the spring allergy season due to occasional exacerbations. Assessment & Plan (03/02/2020 10:55 AM LAWN MAINTENANCE WORKER): She still has frequent episodes of symptomatic [...] density Assessment & Plan (02/21/2019 2:25 PM LAWN MAINTENANCE WORKER): She continues to be very symptomatic, is [...] symptoms. She was seen by her primary mediation commissioner Dr. Pierson in the ED and he [...] symptoms. She was seen by her primary mediation commissioner Dr. Pierson in the ED and he recommended hydrocortisone 50 mg IV q 6 h. She noted subjective improvement after the first dose. Endocrine consulted and will follow along - Decrease hydrocortisone 25mg q6 - Endocrine consulted, appreciate recs Assessment & Plan (11/21/2017 9:11 AM CDT): Her prednisone has been adjusted without improvement in her symptoms. She was seen by her primary mediation commissioner Dr. Pierson in the ED and he [...] deficiency Assessment & Plan (05/08/2024 11:42 AM LAWN MAINTENANCE WORKER): Continue long-term supplement, particularly with glucocorticoid therapy Assessment & Plan (10/27/2023 7:35 PM CDT): Continue long-term supplement, particularly with glucocorticoid therapy Assessment & Plan (04/20/2023 7:38 PM LAWN MAINTENANCE WORKER): Continue long-term supplement, particularly with glucocorticoid therapy Assessment & Plan (10/14/2022 7:31 PM CDT): Continue long-term supplement, particularly with glucocorticoid therapy Assessment & Plan (05/18/2022 11:01 AM LAWN MAINTENANCE WORKER): Continue long-term supplement, particularly with glucocorticoid therapy Assessment & Plan (11/11/2021 10:15 AM CDT): Continue long-term supplement, particularly since she is requiring long-term steroids Assessment & Plan (08/09/2021 7:23 AM CDT): Continue long-term supplement. Recent level within target Assessment & Plan (05/16/2021 11:57 AM LAWN MAINTENANCE WORKER): Continue long-term supplement Assessment & Plan (02/14/2021 1:56 PM LAWN MAINTENANCE WORKER): -Continue current Vitamin D supplement -Repeat level Assessment & Plan (11/12/2020 3:20 PM CDT): Continue long-term supplement Assessment & Plan (2020 12:08 PM CDT): Continue chronic supplement Assessment & Plan (06/11/2020 10:51 AM LAWN MAINTENANCE WORKER): Also on chronic glucocorticoids. Continue chronic supplement. Recent level within target Assessment & Plan (03/02/2020 10:01 AM LAWN MAINTENANCE WORKER): On chronic supplement, but needs follow-up level particularly in the setting of a history of nephrolithiasis Assessment & Plan (11/25/2019 7:42 AM CDT): On steroids, needs to continue supplement as she is doing Assessment & Plan (09/19/2019 11:40 AM CDT): Recent level fine, continue long-term supplement Assessment & Plan (02/21/2019 2:26 PM LAWN MAINTENANCE WORKER): Continue ongoing supplement Assessment & Plan (12/04/2018 [...] MGRN Assessment & Plan (02/26/2017 12:03 PM LAWN MAINTENANCE WORKER): Medication refilled for p.r.n. use for headache. [...] NOS Assessment & Plan (06/11/2020 10:46 AM LAWN MAINTENANCE WORKER): Occasional exacerbations, requiring stress-dose steroids. Assessment & [...] on file Legal Sex Female 10:17 AM LAWN MAINTENANCE WORKER Gender Identity Not on file Sexual Orientation Not on file Last Filed Vital Signs Vital Sign Reading Time Taken Comments Blood Pressure 125/84 06/16/2024 3:41 PM CDT Pulse 101 06/16/2024 3:41 PM CDT Temperature 36.2 C (97.1 F) 05/13/2024 3:35 PM LAWN MAINTENANCE WORKER Respiratory Rate 18 04/17/2024 12:39 PM LAWN MAINTENANCE WORKER Oxygen Saturation 99% 06/16/2024 3:41 PM CDT [...] Read Routine (OP Routine) 05/26/2024 1:30 PM LAWN MAINTENANCE WORKER Persistent cough PAP WITH REFLEX TO HIGH RISK HPV Routine 04/17/2024 1:26 PM LAWN MAINTENANCE WORKER Health care maintenance THINPREP PROCESSING (MOLECULAR COMPONENT) Routine 04/17/2024 9:00 AM LAWN MAINTENANCE WORKER POCT HEMOGLOBIN A1C Routine 02/20/2024 11:13 AM LAWN MAINTENANCE WORKER Type 2 diabetes mellitus without complication, with [...] CDT Adrenal insufficiency Vitamin D deficiency terminal manager (current) use of systemic steroids EGFR Routine 12/20/2022 9:35 AM CDT Adrenal insufficiency Type 2 diabetes mellitus without complication, with long-term current use of insulin (HCC) HEPATITIS C ANTIBODY Routine 04/18/2018 12:24 PM LAWN MAINTENANCE WORKER from Last 3 Months or Most Recently [...] compared to prior imaging studies performed at [facility] on 09/30/2021, 07/05/2022 and 04/18/2023. There [...] compared to prior imaging studies performed at [facility] on 09/30/2021, 07/05/2022 and 04/18/2023. There are scattered areas of fibroglandular density. There is no suspicious abnormality in either breast. Impression: There is no mammographic evidence of malignancy. Annual screening mammography is recommended. OVERALL FINAL ASSESSMENT: BI-RADS CATEGORY 1: Negative. Maria Guadalupe Maya NP IMG MAMMO PROCEDURES Final Res ult * X-ray chest 2 views (05/26/2024 1:30 PM LAWN MAINTENANCE WORKER) Anatomical Region Laterality Modality Body, Chest N/A Computed Radiogr aphy 05/29/2024 8:12 AM LAWN MAINTENANCE WORKER Narrative 05/29/2024 8:14 AM LAWN MAINTENANCE WORKER EXAM DESCRIPTION: XR CHEST PA LATERAL 2 [...] Electronically signed by Jozef Light M.D. CH: Report ID: [id number] Reading Location: [id number] Procedure Note Jozef Light Jr., MD - [...] Jozef Light M.D. CH: TSERING Report ID: [id number] Reading Location: [id number] Imani Sosa MD IMG XR PROCEDURES Final Res ult * Pap with reflex to High Risk HPV and Genotyping (Cytology Component) (04/17/2024 1:26 PM LAWN MAINTENANCE WORKER) Thin prep (Pap test) 04/17/2024 1:26 PM LAWN MAINTENANCE WORKER 04/17/2024 4:57 PM LAWN MAINTENANCE WORKER Narrative PATHOLOGY [facility] - 04/22/2024 3:52 PM LAWN MAINTENANCE WORKER EPIC results best viewed via link to PDF [facility] [place] [address] Note to Patients: This report may contain [...] Gender: F : 1980 (Age: 43) Address: [address] [place], [place] [address] Hospital #: [id number] Service: UNKNOWN Location: Patient Type: [facility] SPECIMEN Taken: 04/17/2024 Received: 04/17/2024 Accessioned: 04/17/2024 [...] clinical information and biopsy results as indicated. CMS Clinical Laboratory Improvement Amendments (CLIA) mandate that cytologic and histologic results be correlated for laboratory auditor/quality & improvement standards. FOR ALL HIGH-GRADE CASES [...] determined by the Surgical Pathology Department at [facility] as part of an ongoing quality manager program and in compliance with [...] determined by the Surgical Pathology Department of [facility]. It has not been cleared or approved by the U. S. Food and Drug Administration. Eli Salas MD LAB CYTOLOGY ORDERABLES Fi nal Result Performing Organization Address City/State/[facility] Co de Phone Number PATHOLOGY [facility] 3rd Floor [place], [place] [phone] * ThinPrep processing (Molecular component) (04/17/2024 9:00 AM LAWN MAINTENANCE WORKER) ThinPrep processing (Molecular component) Specimen received for processing. [facility] Endocervical 04/17/2024 9:00 AM LAWN MAINTENANCE WORKER 04/21/2024 9:00 AM LAWN MAINTENANCE WORKER Eli Salas MD LAB BODY FLUIDS AND STOOLS ORDERABLES Final Result CHRISTI MCMAHON [facility] Department [place] [address] [facility] * POCT hemoglobin A1c (02/20/2024 11:13 AM LAWN MAINTENANCE WORKER) Hemoglobin A1C, POC 6.6 4.0 - 5.6 % Blood 02/20/2024 11:1 3 AM LAWN MAINTENANCE WORKER us Tova Hanna SILK WORKER POINT OF CARE TEST ORDE RABLES Final Result * Albumin Creatinine Ratio, Urine (12/06/2023 8:29 AM CDT) Albumin Ur <12.0 mg/L Comment: Interpretive Data No reference range established. Current interpretive data was last revised 2018. Testing performed by: [facility], [address] [place] [address]., [id number] Creatinine Ur 51.9 mg/dL CHRISTI BA (JESSICA) Comment: Interpretive Data No reference range established. Current interpretive data was last revised 2018. Testing performed by: [facility], [address] [place] [address]., [id number] Albumin Creatinine Ratio, Ur <23 1 - 29 mg/g CHRISTI BA (JESSICA) Comment:Testing performed by : [address] [address] Urine 12/06/2023 8:29 AM CDT 12/06/2023 11:00 AM CDT us Tova Hanna NP LAB URINE ORDERABLES Fi nal Result CHRISTI BA (JESSICA) 1 [facility] [place] [address] * (ABNORMAL) Lipid panel (12/06/2023 8:29 AM [...] getting your blood drawn. us Tova Hanna SILK WORKER LAB BLOOD ORDERABLES nal Result CHRISTI TORRES) 1 [facility] [place] [address] * Dexa Axial Skeleton Bone Density 1 or 2 Site (11/28/2023 10:35 AM CDT) Anatomical Region Laterality Modality Body N/A Radiographic Elizabeth ging Narrative 11/28/2023 10:58 AM CDT Patient Name: Paige Abarca Date of : 1980 Date of scan: 11/28/2023 Bone mineral density was performed on a HoloViewpoint Digital Discovery Densitometer. Based on machine cross-calibration and [...] by the International Society of Clinical Densitometry. [id number] Sarah Pierson MD IMG DXA PROCEDURES Final Re sult * eGFR (12/20/2022 9:35 AM CDT) eGFR 105 mL/min/1. 73 m2 [facility] Comment: Interpretive Data Reference Interval Normal >/= [...] of Race in Diagnosing Kidney Disease, JASN 2020). The CKD-EPI equation should not be used for patients with unstable renal function and has not been validated in children and those over 70. Current interpretive data was last reviewed 2021. Blood 12/20/2022 9:35 AM CDT 12/20/2022 10:42 AM CDT Sarah Pierson MD LAB BLOOD ORDERABLES Final Result [facility] 1 [facility] [place] [address] * Hepatitis C antibody (04/18/2018 12:24 PM [employer]) Hep C Ab Non-Reactiv e Non-Reactiv e [facility] Blood specimen (specimen) 04/18/2018 12:24 PM [employer] 04/18/2018 3:00 PM [employer] WORK[employer] Narrative [facility] - 04/18/2018 4:17 PM [employer] Laura Pineda MD LAB MICROBIOLOGY - GENERAL ORDERABLES Final Result [facility] [address] Department [place] [address] from Last 3 Months or Most Recently Relevant to Health Maintenance Insurance [facility] MEDICARE [facility] MEDICARE MEDICARE [facility] Address: [address] [address] [place] [address] [place] [address] Advance Directives For more information, please contact: [phone] * Full Code (Latest Code Status on File) Date Activated Date Inactivated Comments 11/21/2017 1:39 AM 11/23/2017 4:26 PM * Full Code Date Activated Date Inactivated Comments 06/10/2017 12:31 AM 06/18/2017 8:48 PM Care Teams Flying Instructor Relationship Specialty Start Date End Date Juan Lyons MD PCP - General Family Medicine 11/08/17 Sarah Pierson MD Referring Physician Endocrinology Diabetes & Metabolism 12/04/18 Silvia Alonso NP Nurse Practitioner 01/27/20 Steve Segovia MD Resident Obstetrics and Gynecology 02/17/20
--- OUTSIDE RECORDS SUMMARY | 2024-06-29 15:16 | XMS_ITS | Clinical Summary ---
Author Organization [facility] Address [address] [place] [address] Phone Care Team Providers Care Microstrategy Bi Developer Name Role Phone Juan Lyons MD Primary Care Provider [phone] Allergies Active Allergy Reactions Criticality Noted Date [...] Sucralfate Hives 08/18/2016 Sulfa Antibiotics Anaphylaxis 08/18/2016 [place] Oil Shortness of Breath 08/18/2016 Tetracycline Anaphylaxis [...] directed. Active butalbital-aspirin- caffeine-codeine (FIORINAL WITH CODEINE) 32-002-99-30 MG Capsule Take 1 Cap by mouth [...] PO Take by mouth. Activ e B Rcuoamp-Gsqlkx-AB (B-COMPLEX PO) Take by mouth. 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 Last Assessment & Plan: Patient to supply her own food. Epi IM if needed for anaphylaxis. 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 - Continue home inhalers and nebulizers. Encounters Date Type Department Care Team Description 06/03/2024 [facility] Sched[facility] [address] [place] [address] Juan Lyons MD Nonspecific abnormal electrocardiogram (ECG) (EKG) (Primary Dx) 05/27/2024 3:58 PM MACHINERY CLEANER - 05/27/2024 9:55 PM MACHINERY CLEANER [facility] [address] [place] [address] Arturo Barr PAC Adrenal insufficiency ([place]'s disease) ([facility]) Discharge Disposition: Discharged to home or Selfcare 05/27/2024 Travel 05/21/2024 12:13 PM MACHINERY CLEANER - 05/21/2024 6:07 PM MACHINERY CLEANER [facility] [address] [place] [address] Peggy Epps MD Influenza A Discharge Disposition: [...] Comments Blood Pressure 131/74 05/27/2024 9:45 PM MACHINERY CLEANER Pulse 94 05/27/2024 9:45 PM MACHINERY CLEANER Temperature 37.5 C (99.5 F) 05/27/2024 4:52 PM MACHINERY CLEANER Respiratory Rate 17 05/27/2024 3:25 PM MACHINERY CLEANER Oxygen Saturation 93% 05/27/2024 9:45 PM MACHINERY CLEANER Inhaled Oxygen Concentration - - Weight 68 kg (150 lb) 05/27/2024 3:25 PM MACHINERY CLEANER Height 157.5 cm (5' 2 ) 05/27/2024 3:25 PM MACHINERY CLEANER Body Mass Index 27.44 05/27/2024 3:25 PM MACHINERY CLEANER Plan of Treatment Health Maintenance Due Date [...] LACTIC ACID (LACTATE) STAT 05/27/2024 7:42 PM MACHINERY CLEANER D-DIMER STAT 05/27/2024 6:21 PM MACHINERY CLEANER URINALYSIS REFLEX IF INDICATED BY ABNORMAL RESULTS STAT 05/27/2024 5:40 PM MACHINERY CLEANER CULTURE, BLOOD STAT 05/27/2024 5:38 PM MACHINERY CLEANER ADRENOCORTICOTROPIC HORMONE, P, SHERIFF ACTH STAT 05/27/2024 5:33 PM MACHINERY CLEANER LACTIC ACID (LACTATE) STAT 05/27/2024 5:33 PM MACHINERY CLEANER CULTURE, BLOOD STAT 05/27/2024 5:33 PM MACHINERY CLEANER XR CHEST 2 VIEWS STAT 05/27/2024 5:02 PM MACHINERY CLEANER RSV,SARS-COV-2,INFLUENZA A&B BY PCR STAT 05/27/2024 4:47 PM MACHINERY CLEANER EKG 12 LEAD STAT 05/27/2024 3:41 PM MACHINERY CLEANER MANUAL DIFFERENTIAL STAT 05/27/2024 3 :33 PM MACHINERY CLEANER CBC WITH AUTO DIFFERENTIAL STAT 05/27 3:33 PM MACHINERY CLEANER CORTISOL STAT 05/27/2024 3:33 PM MACHINERY CLEANER TROPONIN I, HIGH SENSITIVITY (HSTRP) STAT 05/27/2024 3:33 PM MACHINERY CLEANER CMP (COMPREHENSIVE METABOLIC PANEL) STAT 05/27/2024 3:33 PM MACHINERY CLEANER COMPLETE BLOOD COUNT (CBC) WITH DIFF STAT 05/27/2024 3:33 PM MACHINERY CLEANER EKG SCAN 05/27/2024 12:00 AM MACHINERY CLEANER LACTIC ACID (LACTATE) STAT 05/21/2024 3:27 PM MACHINERY CLEANER XR CHEST 2 VIEWS STAT 05/21/2024 2:14 PM MACHINERY CLEANER UR TEST QUAL STAT 1:34 PM MACHINERY CLEANER URINALYSIS REFLEX IF INDICATED BY ABNORMAL RESULTS STAT 05/21/2024 1:34 PM MACHINERY CLEANER CULTURE, BLOOD STAT 05/21/2024 12:49 PM MACHINERY CLEANER EKG 12 LEAD STAT 05/21/2024 12:29 PM MACHINERY CLEANER GOLD TOP TUBE STAT 05/21/2024 12:23 PM MACHINERY CLEANER BLUE TOP TUBE STAT 05/21/2024 12:23 PM MACHINERY CLEANER CBC WITH AUTO DIFFERENTIAL STAT 05/21 12:23 PM MACHINERY CLEANER D-DIMER STAT 05/21/2024 12:23 PM MACHINERY CLEANER EXTRA TUBES STAT 05/21/2024 12:23 PM MACHINERY CLEANER LACTIC ACID (LACTATE) STAT 05/21/2024 12:23 PM MACHINERY CLEANER CMP (COMPREHENSIVE METABOLIC PANEL) STAT 05/21/2024 12:23 PM MACHINERY CLEANER COMPLETE BLOOD COUNT (CBC) WITH DIFF STAT 05/21/2024 12:23 PM MACHINERY CLEANER RSV,SARS-COV-2,INFLUENZA A&B BY PCR STAT 05/21/2024 12:23 PM MACHINERY CLEANER CULTURE, BLOOD STAT 05/21/2024 12:23 PM MACHINERY CLEANER EKG SCAN 05/21/2024 12:00 AM MACHINERY CLEANER HEMOGLOBIN A1C W/ ESTIMATED GLUCOSE Routine 10/04/2018 5:16 PM CDT Adrenal insufficiency ([place]'s disease) (HCC) HEPATITIS C ANTIBODY STAT 11/19/2015 6:47 PM CDT from Last 3 Months or Most Recently Relevant to Health Maintenance Results * Lactic Acid (Lactate) (05/27/2024 7:42 PM MACHINERY CLEANER) Only the most recent of4 resultswithin the time period is included. LACTIC ACID 1.8 0.7 - 2.0 mmol/L 05/27/2024 8:05 PM MACHINERY CLEANER [facility] Blood Venipuncture / Unknown 05/27/2024 7:42 PM MACHINERY CLEANER 05/27/2024 7:48 PM MACHINERY CLEANER us Arturo Barr PAC CHEMISTRY ORDERABLES Final Result [facility] [address] [place] [address] * D-DIMER [id number] (05/27/2024 6:21 PM MACHINERY CLEANER) Only the most recent of2 resultswithin the time period is included. D DIMER 0.40 <0.50 mcg/mL FEU 05/27/2024 7:17 PM MACHINERY CLEANER [facility] Blood Venipuncture / Unknown 05/27/2024 6:21 PM MACHINERY CLEANER 05/27/2024 6:59 PM MACHINERY CLEANER Narrative [facility] - 05/27/2024 7:17 PM MACHINERY CLEANER The FDA has approved this method to exclude the diagnosis of DVT and/or PE at the cutoff value of <0.50 mcg/mL FEU. Arturo Barr PAC HEMATOLOGY ORDERABLE S Final Result [facility] [address] [facility] [place] [address] * (ABNORMAL) Urinalysis w/ Reflex (05/27/2024 5:40 PM MACHINERY CLEANER) Only the most recent of2 resultswithin the time period is included. SPECIFIC GRAVITY 1.010 1.003 - 1.030 05/27/2024 6:11 PM MACHINERY CLEANER [facility] URINE PH 7.0 5.0 - 9.0 05/27/2024 6:11 PM MACHINERY CLEANER [facility] WBC ESTERASE Negative Negative 05/27/2024 6:11 PM MACHINERY CLEANER [facility] NITRITE Negative Negative 05/27/2024 6:11 PM MACHINERY CLEANER [facility] PROTEIN, RANDOM URINE 15 mg/dL(A) Negative 05/27/2024 6:11 PM MACHINERY CLEANER [facility] URINE GLUCOSE, QUAL Negative Negative 05/27/2024 6:11 PM MACHINERY CLEANER [facility] URINE KETONES Negative Negative 05/27/2024 6:11 PM MACHINERY CLEANER [facility] UROBILINOGEN Normal Normal mg/dL 05/27/2024 6:11 PM MACHINERY CLEANER [facility] URINE BLOOD Negative Negative kimberly/ul 05/27/2024 6:11 PM MACHINERY CLEANER [facility] URINALYSIS COLOR Yellow 05/27/19 25 6:11 PM MACHINERY CLEANER [facility] URINALYSIS CLARITY Clear 05/27/2024 6:11 PM MACHINERY CLEANER [facility] Urine URINE SPECIMEN / Unknown Non-Phlebotomy Collection / Unknown 05/27/2024 5:40 PM MACHINERY CLEANER 05/27/2024 5:45 PM MACHINERY CLEANER Arturo Barr PAC URINE ORDERABLES Fin al Result [facility] [address] [place] [address] * Blood Culture #2 (05/27/2024 5:38 PM MACHINERY CLEANER) Only the most recent of4 resultswithin the time period is included. CULTURE RESULTS NO GROWTH WITHIN 5 DAYS, FINAL RESULT 06/01/2024 6:00 PM MACHINERY CLEANER [facility] Culture BLOOD SPECIMEN / Unknown Venipuncture / Unknown 05/27/2024 5:38 PM MACHINERY CLEANER 05/27/2024 5:44 PM MACHINERY CLEANER Arturo Barr PAC MICROBIOLOGY - GENER AL ORDERABLES Final Result Performing Organization Address [facility] Co de Phone Number [facility] [address] [place] [address], [place] * (ABNORMAL) ADENOCORTICOTROPIC HORM, P, SHERIFF ACTH (05/27/2024 5:33 PM MACHINERY CLEANER) ADRENOCORTICOTROPIC HORMONE (ACTH) <5.0(L) pg/mL 05/29/2024 10:46 AM MACHINERY CLEANER [place] [employer] Comment: REFERENCE VALUE 7.2-63 (a.m. collection) Test Performed by: [place] [address] Supervisor [employer]: Lorenzo Nelson Ph.D.; CLIA# [id number] Blood Venipuncture / Unknown 05/27/2024 5:33 PM MACHINERY CLEANER 05/27/2024 5:44 PM MACHINERY CLEANER Arturo Barr PAC LAB SEND OUTS Kylah l Result [facility] * XR CHEST 2 VIEWS (05/27/2024 5:02 PM MACHINERY CLEANER) Only the most recent of2 resultswithin the time period is included. Anatomical Region Laterality Modality Chest N/A Digital Radiogra phy 05/27/2024 5:20 PM MACHINERY CLEANER Impressions 05/27/2024 5:23 PM MACHINERY CLEANER IMPRESSION: No acute cardiopulmonary abnormality. Narrative 05/27/2024 5:23 PM MACHINERY CLEANER EXAM DESCRIPTION: XR CHEST 2 VIEWS REASON [...] Kalin Wadsworth M.D. KT: KT Report ID: [id number] Reading Location: [place] [address] Procedure Note Kalin Wadsworth MD - 05/27/2024 [...] Kalin Wadsworth M.D. KT: KT Report ID: [id number] Reading Location: [id number] IMPRESSION: No acute cardiopulmonary abnormality. Arturo Barr PAC IMG DIAGNOSTIC ORDER AMINATA Final Result * RSV,SARS-COV-2,INFLUENZA A&B BY PCR (05/27/2024 4:47 PM MACHINERY CLEANER) Only the most recent of2 resultswithin the time period is included. FLU A Negative Negative, Error 05/27/2024 5:48 PM MACHINERY CLEANER [facility] FLU B Negative Negative 05/27/2024 5:48 PM MACHINERY CLEANER [facility] RESP SYNC VIRUS Negative Negative 5:48 PM MACHINERY CLEANER [facility] SARSCOV2 NOT DETECTED (Reference Range for this test is Not Detected) 05/27/2024 5:48 PM MACHINERY CLEANER [facility] Comment:This test was perfor med by a Reverse Engineer Steam PCR Method. Swab NASOPHARYNGEAL STRUCTURE / Unknown Non-Phlebotomy Collection / Unknown 05/27/2024 4:47 PM MACHINERY CLEANER 05/27/2024 5:03 PM MACHINERY CLEANER Arturo Barr PAC MICROBIOLOGY - GENER AL ORDERABLES Final Result [facility] [address] [place] [address] * EKG 12 LEAD (05/27/2024 3:41 PM MACHINERY CLEANER) Only the most recent of2 resultswithin the time period is included. Ventricular Rate 112 BPM EXTERNAL EKG Atrial Rate 112 BPM EXTERNAL EKG P-R Interval 130 ms EXTERNAL EKG QRS Duration 70 ms EXTERNAL EKG Q-T Duration 310 ms EXTERNAL EKG QTC CALCULATION 423 ms EXTERNAL EKG P Foster 67 degrees EXTERNAL EKG R Foster 79 degrees EXTERNAL EKG T Foster 22 degrees EXTERNAL EKG 05/27/2024 3:41 PM MACHINERY CLEANER Impressions EXTERNAL EKG - 05/29/2024 11:02 PM MACHINERY CLEANER Sinus tachycardia Otherwise normal ECG When compared with ECG of 21-MAY-2024 12:29, QRS axis shifted right Confirmed by Guillermo Nash ([id number]) on 05/29/2024 11:02:51 PM Narrative Procedure Note Guillermo Nash MD - 05/29/2024 IMPRESSION: Sinus tachycardia Otherwise normal ECG When compared with ECG of 21-MAY-2024 12:29, QRS axis shifted right Confirmed by Guillermo Nash ([id number]) on 05/29/2024 11:02:51 PM Srinivas Henderson MD IMG ECG ORDERABLES Final Result EXTERNAL EKG * TROPONIN I, HIGH SENSITIVITY (HSTRP) (05/27/2024 3:33 PM MACHINERY CLEANER) [facility] TROPONIN I, HIGH SENSITIVITY- PRATT <3 <=14 ng/L 05/27/2024 4:41 PM MACHINERY CLEANER [facility] Comment: High-sensitivity troponin I results are reported in ng/L making the result appear to be 1,000 times higher than the contemporary troponin I value which is reported in ng/ml. Results from [place]. Blood Venipuncture / Unknown 05/27/2024 3:33 PM MACHINERY CLEANER 05/27/2024 3:53 PM MACHINERY CLEANER Srinivas Henderson MD CHEMISTRY ORDERABLES Fin al Result Performing Organization Address City/[facility]/ZIP Co de Phone Number [facility] [address] [place] [address] * (ABNORMAL) Manual Differential (05/27/2024 3:33 PM MACHINERY CLEANER) BANDS % 1.0 % 05/27/2024 4:46 PM MACHINERY CLEANER [facility] NEUTROPHILS % 76.0(H) 47.0 - 73.0 % 05/27/2024 4:46 PM MACHINERY CLEANER [facility] LYMPHOCYTES % 15.0(L) 18.0 - 42.0 % 05/27/2024 4:46 PM MACHINERY CLEANER [facility] MONOCYTES % 7.0 4.0 - 12.0 % 05/27/2024 4:46 PM MACHINERY CLEANER [facility] MYELOCYTES % 1.0(H) <=0.0 % 05/27/2024 4:46 PM MACHINERY CLEANER [facility] NEUTROPHILS ABSOLUTE 9.78(H) 1.60 - 7.70 10(3)/mcL 05/27/2024 4:46 PM MACHINERY CLEANER [facility] LYMPHOCYTES ABSOLUTE 1.91 1.30 - 3.20 10(3)/mcL 05/27/2024 4:46 PM MACHINERY CLEANER [facility] MONOCYTES ABSOLUTE 0.89 0.20 - 1.00 10(3)/mcL 05/27/2024 4:46 PM [facility] RBC MORPHOLOGY CONSISTENT WITH INDICES Yes 05/27/2024 4:46 PM MACHINERY CLEANER [facility] POLYCHROMASIA 1+ 05/27/2024 4:46 PM MACHINERY CLEANER [facility] GIANT PLATELETS 1+ 4:46 PM MACHINERY CLEANER [facility] REACTIVE LYMPHOCYTES 7 05/27/2024 4:46 PM [facility] WBC MORPH STATUS Normal 05/27/19 25 4:46 PM [facility] Blood Venipuncture / Unknown 05/27/2024 3:33 PM MACHINERY CLEANER 05/27/2024 3:53 PM MACHINERY CLEANER Narrative [facility] - 05/27/2024 4:46 PM MACHINERY CLEANER Anisocytosis Macrocytosis us Srinivas Henderson MD HEMATOLOGY ORDERABLES Fi nal Result [facility] [address] [place] [address] * (ABNORMAL) CBC with Auto Differential (05/27/2024 3:33 PM MACHINERY CLEANER) Only the most recent of2 resultswithin the time period is included. WBC 12.70(H) 4.00 - 12.00 10(3)/mcL 05/27/2024 4:46 PM MACHINERY CLEANER [facility] RBC 4.55 3.80 - 5.30 10(6)/mcL 05/27/2024 4:46 PM MACHINERY CLEANER [facility] HEMOGLOBIN (HGB) 14.8 12.0 - 15.8 g/dL 05/27/2024 4:46 PM MACHINERY CLEANER [facility] HEMATOCRIT (HCT) 43.2 36.0 - 47.0 % 05/27/2024 4:46 PM MACHINERY CLEANER [facility] MCV 94.9 82.0 - 96.0 fL 05/27/2024 4:46 PM MACHINERY CLEANER [facility] MCH 32.5 26.0 - 34.0 pg 05/27/2024 4:46 PM [facility] MCHC 34.3 31.0 - 36.0 g/dL 05/27/2024 4:46 PM [facility] PLATELET COUNT 396 140 - 440 10(3)/[facility] 05/27/2024 4:46 PM [facility] RDW 12.7 11.8 - 15.5 % 05/27/2024 4:46 PM [facility] MPV 9.6(L) 9.7 - 12.4 fL 05/27/2024 4:46 PM [facility] NRBC PER 100 WBC 0 05/27/2024 4:46 PM [facility] RESULTS ARE CONSISTENT WITH PERIPHERAL SMEAR REVIEW Yes 05/27/2024 4:46 PM [facility] Blood Venipuncture / Unknown 05/27/2024 3:33 PM MACHINERY CLEANER 05/27/2024 3:53 PM MACHINERY CLEANER us Srinivas Henderson MD HEMATOLOGY ORDERABLES Fi nal Result [facility] [address] [place] [address] * Cortisol (05/27/2024 3:33 PM MACHINERY CLEANER) CORTISOL 13.1 mcg/dL 05/27/2024 6:5 1 PM MACHINERY CLEANER [facility] Blood Venipuncture / Unknown 05/27/2024 3:33 PM MACHINERY CLEANER 05/27/2024 3:53 PM MACHINERY CLEANER Narrative [facility] - 05/27/2024 6:51 PM MACHINERY CLEANER AM: 4 TO 19 mcg/dL PM: Approx. Half of AM Value us Arturo Collins Momo PAC CHEMISTRY ORDERABLES Final Result [facility] [address] [place] [address] * (ABNORMAL) Comprehensive Metabolic Panel (Cmp) [id number] (05/27/2024 3:33 PM MACHINERY CLEANER) Only the most recent of2 resultswithin the time period is included. Pathologist [facility] SODIUM 137 136 - 145 mmol/L 05/27/2024 4:36 PM [facility] POTASSIUM 4.6 3.5 - 5.1 mmol/L 05/27/2024 4:36 PM [facility] CHLORIDE 106 98 - 107 mmol/L 05/27/2024 4:36 PM [facility] CO2, VENOUS 21(L) 22 - 30 mmol/L 05/27/2024 4:36 PM [facility] ANION GAP 14.6 <18.0 mmol/L 05/27/2024 4:36 PM [facility] GLUCOSE 164(H) 70 - 99 mg/dL 05/27/2024 4:36 PM [facility] BUN 15 5 - 18 mg/dL 05/27/2024 4:36 PM [facility] CREATININE, BLOOD 0.85 0.60 - 1.00 mg/dL 05/27/2024 4:36 PM [facility] BUN/CREATININE RATIO 18 12 - 20 ratio 05/27/2024 4:36 PM [facility] TOTAL PROTEIN 7.5 6.0 - 8.0 g/dL 05/27/2024 4:36 PM [facility] ALBUMIN 4.4 3.5 - 5.0 g/dL 05/27/2024 4:36 PM [facility] A/G RATIO 1.4 1.0 - 2.2 05/27/2024 4:36 PM [facility] CALCIUM 9.8 8.7 - 10.5 mg/dL 05/27/2024 4:36 PM MACHINERY CLEANER [facility] T BILI 0.3 0.2 - 1.2 mg/dL 05/27/2024 4:36 PM [facility] SGOT (AST) 27 6 - 42 U/L 05/27/2024 4:36 PM [facility] SGPT (ALT) 53 6 - 55 U/L 05/27/2024 4:36 PM [facility] ALKALINE PHOSPHATASE 55 40 - 150 U/L 05/27/2024 4:36 PM MACHINERY CLEANER [facility] GFR, ESTIMATED >60 >=60 05/27/2024 4:36 PM [facility] Comment: Creatinine Clearance is the preferred criteria for selecting drug dose adjustments in renally impaired patients. The GFR is provided as additional pertinent clinical information. GFR is reported in mL/min/1.73 sq m. Calculation based on the Chronic Kidney Disease Epidemiology Collaboration (CKD- EPI) equation refit without adjustment for race. GFR, EST. >60 >=60 025 4:36 PM MACHINERY CLEANER [facility] GFR, EST. NONAFRICAN >60 >=60 05/27/2024 4:36 PM [facility] Blood Venipuncture / Unknown 05/27/2024 3:33 PM MACHINERY CLEANER 05/27/2024 3:53 PM MACHINERY CLEANER us Srinivas Henderson MD CHEMISTRY ORDERABLES Fin al Result [facility] [address] [place] [address] * EKG SCAN (05/27/2024 12:00 AM MACHINERY CLEANER) Only the most recent of2 resultswithin the time period is included. 05/27/2024 us Provider Scan IMG ECG ORDERABLES Final Result Performing Organization Address City/[facility] Co de Phone Number RESULTING AGENCY * Ur Test Qual (05/21/2024 1:34 PM MACHINERY CLEANER) PREG TEST,MONOCLONA L Negative 05/21/2024 1:49 PM MACHINERY CLEANER [facility] Urine URINE SPECIMEN / Unknown Non-Phlebotomy Collection / Unknown 05/21/2024 1:34 PM MACHINERY CLEANER 05/21/2024 1:34 PM MACHINERY CLEANER Peggy Epps MD URINE ORDERABLES Final Result Performing Organization Address [facility] Co de Phone Number [facility] [address] [place] [address] * Gold Top Tube (05/21/2024 12:23 PM MACHINERY CLEANER) Blood No Phlebotomy Charged / Unknown 05/21/2024 12:23 PM MACHINERY CLEANER 05/21/2024 12:32 PM MACHINERY CLEANER Peggy Epps MD CHEMISTRY ORDERABLES Final Re sult Performing Organization Address [facility] Co de Phone Number [facility] [address] [place] [address] * Blue Top Tube (05/21/2024 12:23 PM MACHINERY CLEANER) Blood No Phlebotomy Charged / Unknown 05/21/2024 12:23 PM MACHINERY CLEANER 05/21/2024 12:32 PM MACHINERY CLEANER Peggy Epps MD HEMATOLOGY ORDERABLES Final R esult [facility] [address] [place] [address] * (ABNORMAL) HEMOGLOBIN A1C W/ ESTIMATED GLUCOSE (10/04/2018 5:16 PM CDT) HGB-A1C 6.3(H) 4.0 - 6.0 % 10/04/2018 6:11 PM CDT [facility] Est Average Glucose 134.1 mg/dL 10/04/2018 6:11 PM CDT [facility] Blood specimen (specimen) Venipuncture / Unknown 10/04/2018 5:16 PM CDT 10/04/2018 5:31 PM CDT Narrative [facility] - 10/04/2018 6:11 PM CDT HEMOGLOBIN A1C: DIABETIC PATIENTS: WELL-CONTROLLED: 6.2 - 7.0 INTERMEDIATE WELL-CONTROLLED: 7.0 - 9.0 POORLY-CONTROLLED: >9.0 Sarah Pierson MD CHEMISTRY ORDERABLES Final Result [facility] [address] [place] [address] * Hepatitis C Antibody (11/19/2015 6:47 PM CDT) Pathologist [facility] hepatitis C antibody 0.38 <1 S/CO 11/20/2015 10:14 PM CDT [facility] Comment: Signal/Cutoff ratio < 0.79 is Nondetected Signal/Cutoff ratio 0.80-0.99 is Grayzone Signal/Cutoff ratio > 0.99 is Detected Supplemental assays are recommended if signal/cutoff ratio is >/=1.00. Signal/cutoff ratio result >/= 5.00 is 97% predictive of positivity for recombinant immunoblot assay (RIBA) and will be reported to the [place] Department of Public Health as required. Blood specimen (specimen) Venipuncture / Unknown 11/19/2015 6:47 PM CDT 11/19/2015 6:54 PM CDT us Arturo Liun PAC CHEMISTRY ORDERABLES Final Result [facility] [address] [place] [address], [place] from Last 3 Months or Most Recently Relevant to Health Maintenance Insurance MEDICARE [place]ICAID [place] [facility] [place] [address] [address] [place] [address] [facility] [place] [address] [address] Care Teams Microstrategy Bi Developer Relationship Specialty Start Date End Date Juan Lyons MD [address] [place] [address] PCP - General Family Medicine 11/12/17
--- OUTSIDE RECORDS SUMMARY | 2024-06-29 15:16 | XMS_ITS | Encounter Summary ---
Author Organization [facility] Address [address] [place] [address] Care Team Providers Care Mobile Solutions Architect Name Role Phone Juan Lyons MD Primary Care Provider [phone] Sarah Pierson MD Unavailable [phone] Silvia Alonso NP Unavailable [phone] Steve Segovia MD Unavailable [phone] Reason for Visit * Reason Onset Date Comments Scheduling Appointments 10/30/2019 Called f or DEXA appointment, No answer Encounter Details Date Type Department Care Team (Late st Contact Info) Description 10/30/[address] [address] [address] Scheduling Appointments (Called for DEXA appointment, No answer) Social History Tobacco Use Types Packs/Day Years Used Date Smoking Tobacco: Never Smokeless Tobacco: Never Alcohol Use Standard Drinks/Week Comments No 0 (1 standard drink = 0.6 oz pur e alcohol) Comments No Sex and Gender Information Value Date Recorded Sex Assigned at Not on file Legal Sex Female 10:[address] Gender Identity Not on file Sexual Orientation Not on file documented as of this encounter Plan of Treatment Not on file documented as of this encounter Visit Diagnoses Not on filedocumented in this encounter Care Teams Mobile Solutions Architect Relationship Specialty Start Date End Date Juan Lyons MD PCP - General Family Medicine 11/08/17 Sarah Pierson MD Referring Physician Endocrinology Diabetes & Metabolism 12/04/18 Silvia Alonso NP Nurse Practitioner 01/27/20 Steve Segovia MD Resident Obstetrics and Gynecology 02/17/20 documented as of this encounter
[2024-06-29 15:17] VITALS: BP 140/86; PULSE 110; RESP 20; TEMP 36.1; O2SAT 97
[2024-06-29 15:39] LABS: EDCOVIDSCREEN Negative (Negative); EDINFLUASCREEN Negative (Negative); EDINFLUBSCREEN Negative (Negative)
--- NOTE | 2024-06-29 16:15 | ED.GENADULT ---
HPI - General Adult General Chief complaint: Upper Respiratory Infection Stated complaint: flu symptoms Source: patient Mode of arrival: ambulatory Limitations: no limitations History of Present Illness HPI narrative: Patient presents requesting a flu test. She indicates yesterday she developed a headache, body aches and nausea. She has not had a fever, chills, vomiting, diarrhea, cough, shortness of breath. She is not aware of any specific recent sick contacts. She was seen here yesterday with concerns that she had a UTI. Urine dipstick not consistent with that. Related Data Home Medications ?Medication ?Instructions ?Recorded ?Confirmed ?Last Taken ?Type azelastine 137 mcg (0.1 %) nasal See Rx Instructions .Route .COMPLEX 10/06/20 01/20/22 Unknown History spray albuterol sulfate 90 mcg/actuation 2 puff inhalation Q4H PRN sob 03/20/21 01/20/22 Unknown History aerosol inhaler blood-glucose sensor (Dexcom G6 03/20/21 01/20/22 Unknown History Sensor device) blood-glucose transmitter (Dexcom 03/20/21 01/20/22 Unknown History G6 Transmitter device) budesonide-formoterol HFA 160 2 puff inhalation BID 03/20/21 01/20/22 Unknown History mcg-4.5 mcg/actuation aerosol inhaler (Symbicort) butalbital 50 mg-acetaminophen 325 See Rx Instructions .Route 03/20/21 01/20/22 Unknown History mg tablet .COMPLEX PRN Headache clonazepam 0.5 mg tablet 0.25 mg PO TID 03/20/21 01/20/22 Unknown History dexamethasone sodium phosphate 4 See Rx Instructions .Route 03/20/21 01/20/22 Unknown History mg/mL injection solution .COMPLEX PRN pain epinephrine 0.3 mg/0.3 mL See Rx Instructions .Route 03/20/21 01/20/22 Unknown History injection, auto-injector .COMPLEX PRN Anaphylaxis fluticasone propionate 50 1 spray intranasal BID 03/20/21 01/20/22 Unknown History mcg/actuation nasal spray,suspension hydroxyzine HCl 10 mg tablet 10 mg PO QID PRN Anxiety 03/20/21 01/20/22 Unknown History insulin lispro 100 unit/mL 5 unit subcut AC 03/20/21 01/20/22 Unknown History subcutaneous pen ipratropium 0.5 mg-albuterol 3 mg 3 ml inhalation Q4H PRN sob 03/20/21 01/20/22 Unknown History (2.5 mg base)/3 mL nebulization soln levocetirizine 5 mg tablet 5 mg PO QID 03/20/21 01/20/22 Unknown History levothyroxine 25 mcg tablet 25 mcg PO DAILY 03/20/21 01/20/22 Unknown History mometasone-formoterol HFA 200 2 puff inhalation BID 03/20/21 01/20/22 Unknown History mcg-5 mcg/actuation aerosol inhaler (Dulera) pen needle, diabetic 32 gauge x 03/20/21 01/20/22 Unknown History (BD Isela 2nd Gen Pen Needle) promethazine 25 mg tablet 1 mg PO QID 03/20/21 01/20/22 Unknown History spironolactone 50 mg tablet 50 mg PO TID 03/20/21 01/20/22 Unknown History tirzepatide subcut 05/04/24 Unknown History Allergies Allergy/AdvReac Type Severity Reaction Status Date / Time herr Allergy Severe Anaphylaxis Verified 06/29/24 15:22 chloroxylenol Allergy Severe Anaphylaxis Verified 06/29/24 15:22 chocolate flavor Allergy Severe Anaphylactic Verified 06/29/24 15:22 Shock omalizumab (From Xolair) Allergy Severe Anaphylaxis Verified 06/29/24 15:22 peanut Allergy Severe Anaphylactic Verified 06/29/24 15:22 Shock ranitidine Allergy Severe Anaphylactic Verified 06/29/24 15:22 Shock red dye Allergy Severe Anaphylactic Verified 06/29/24 15:22 Shock Sulfa (Sulfonamide Allergy Severe Anaphylactic Verified 06/29/24 15:22 Antibiotics) Shock clindamycin Allergy Intermediate Hives Verified 06/29/24 15:22 famotidine Allergy Intermediate Rash Verified 06/29/24 15:22 metoclopramide Allergy Intermediate Hives Verified 06/29/24 15:22 montelukast Allergy Intermediate Hives Verified 06/29/24 15:22 sertraline Allergy Intermediate Hives Verified 06/29/24 15:22 almotriptan (From Axert) Allergy Mild Rash Verified 06/29/24 15:22 apple Allergy Mild Hives / Verified 06/29/24 15:22 Red Face ciprofloxacin Allergy Mild Rash Verified 06/29/24 15:22 amoxicillin Allergy Unknown Hives Verified 06/29/24 15:22 banana Allergy Unknown Anaphylaxis Verified 06/29/24 15:22 cefprozil Allergy Unknown Hives / Verified 06/29/24 15:22 [place] Face celecoxib Allergy Unknown Hives / Verified 06/29/24 15:22 [place] gluten Allergy Unknown Itching Verified 06/29/24 15:22 heparin Allergy Unknown Unknown Verified 06/29/24 15:22 lansoprazole Allergy Unknown Rash Verified 06/29/24 15:22 morphine Allergy Unknown Hives / Verified 06/29/24 15:22 [place] oats Allergy Unknown Rash Verified 06/29/24 15:22 Penicillins Allergy Unknown Hives / Verified 06/29/24 15:22 [place] potassium guaiacolsulfonate Allergy Unknown Hives / Verified 06/29/24 15:22 [place] sesame oil Allergy Unknown Hives Verified 06/29/24 15:22 sesame seed Allergy Unknown Hives Verified 06/29/24 15:22 sucralfate Allergy Unknown Hives Verified 06/29/24 15:22 sunflower oil Allergy Unknown Wheezing Verified 06/29/24 15:22 sunflower seed Allergy Unknown Wheezing Verified 06/29/24 15:22 tetracycline Allergy Unknown Hives / Verified 06/29/24 15:22 Red Face zolmitriptan (From Zomig) Allergy Unknown Unknown Verified 06/29/24 15:22 zolpidem (From Ambien) Allergy Unknown Unknown Verified 06/29/24 15:22 Review of Systems Review of Systems: CONSTITUTIONAL: Denies fever, chills, or sweats. EYES: Denies visual changes, redness, or discharge. ENT: Denies rhinorrhea, congestion, sore throat, or otalgia. CARDIOVASCULAR: Denies chest pain, palpitations, or edema. RESPIRATORY: Denies cough or dyspnea. GASTROINTESTINAL: Reports nausea. Denies abdominal pain, vomiting, or diarrhea. GENITOURINARY: Denies dysuria or hematuria. SKIN: Denies rash or itching. MUSCULOSKELETAL: Reports generalized body aches NEUROLOGIC: Reports headache. Denies numbness, dizziness, or weakness. PSYCHIATRIC: Denies anxiety or depression. 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 HEAD: Normocephalic, atraumatic. EYES: PERRLA and EOMI. ENT: Nares clear, no rhinorrhea or epistaxis. Mucous membranes moist. Oropharynx without tonsillar hypertrophy exudate or other lesions. Bilateral TMs pearly edmond nonbulging NECK: Supple. No adenopathy or masses. No carotid bruits or JVD CHEST: Clear to auscultation. No respiratory distress. No wheezes rales or rhonchi HEART: Regular rate and rhythm. No murmur heard. Normal peripheral pulses. ABDOMEN: Soft, nontender, nondistended, normal active bowel sounds. EXTREMITIES: Normal range of motion. No edema. SKIN: Warm, dry, no rash. NEURO: No focal deficits. Alert and oriented x3. PSYCH: Normal mood and affect. Course Course Emergency Course: This is a 43-year-old female who presented with concerns that she may have the flu. Flu and COVID testing here negative. Exam is consistent with acute viral syndrome. Increase hydration. [id number] agents for symptom management. Follow up with primary provider. Go to the ER for worsening symptoms. Patient in agreement with plan of care. Level of Care: Express Care Visit Vital Signs Vital signs: Vital Signs Temperature 36.1 C L 06/29/24 15:17 Pulse Rate 110 H 06/29/24 15:17 Respiratory Rate 20 06/29/24 15:17 Blood Pressure 140/86 06/29/24 15:17 Pulse Oximetry 97 06/29/24 15:17 Oxygen Delivery Room Air 06/29/24 15:17 Temperature 36.1 C L 06/29/24 15:17 Pulse Rate 110 H 06/29/24 15:17 Respiratory Rate 20 06/29/24 15:17 Blood Pressure 140/86 06/29/24 15:17 Pulse Oximetry 97 06/29/24 15:17 Oxygen Delivery Room Air 06/29/24 15:17 Medical Decision Making Vital Signs Vital Signs: Vital Signs Temperature 36.1 C L 06/29/24 15:17 Pulse Rate 110 H 06/29/24 15:17 Respiratory Rate 20 06/29/24 15:17 Blood Pressure 140/86 06/29/24 15:17 Pulse Oximetry 97 06/29/24 15:17 Oxygen Delivery Room Air 06/29/24 15:17 Temperature 36.1 C L 06/29/24 15:17 Pulse Rate 110 H 06/29/24 15:17 Respiratory Rate 20 06/29/24 15:17 Blood Pressure 140/86 06/29/24 15:17 Pulse Oximetry 97 06/29/24 15:17 Oxygen Delivery Room Air 06/29/24 15:17 Lab Data Labs: Lab Results 06/29/24 Range/Units 15:37 POC Influenza A Ag Negative (Negative) POC Influenza B Ag Negative (Negative) POC SARS CoV-2 Ag Negative (Negative) Discharge Plan Discharge Clinical Impression: Acute viral syndrome Patient Disposition: Home, Self-Care Condition: Stable Instructions: Antibiotic Form, Viral Syndrome (ED) Patient Language: [place] Prescriptions: No Action ipratropium-albuterol 0.5 mg-3 mg(2.5 mg base)/3 mL solution for nebulization 3 ml INHALATION Q4H PRN (Reason: sob) clonazepam 0.5 mg tablet 0.25 mg PO TID butalbital-acetaminophen 50-325 mg tablet See Rx Instructions .ROUTE .COMPLEX PRN (Reason: Headache) Rx Instructions: as prescribed levothyroxine 25 mcg tablet 25 mcg PO DAILY promethazine 25 mg tablet 1 mg PO QID dexamethasone sodium phosphate 4 mg/mL solution See Rx Instructions .ROUTE .COMPLEX PRN (Reason: pain) Rx Instructions: as prescribed epinephrine 0.3 mg/0.3 mL auto-injector See Rx Instructions .ROUTE .COMPLEX PRN (Reason: Anaphylaxis) Rx Instructions: as prescribed albuterol sulfate 90 mcg/actuation HFA aerosol inhaler 2 puff INHALATION Q4H PRN (Reason: sob) hydroxyzine HCl 10 mg tablet 10 mg PO QID PRN (Reason: Anxiety) fluticasone propionate 50 mcg/actuation spray,suspension 1 spray INTRANASAL BID spironolactone 50 mg tablet 50 mg PO TID insulin lispro 100 unit/mL insulin pen 5 unit SUBCUT AC budesonide-formoterol [Symbicort] 160-4.5 mcg/actuation HFA aerosol inhaler 2 puff INHALATION BID levocetirizine 5 mg tablet 5 mg PO QID (DME) Dexcom G6 Sensor Device MISCELLANEOUS (DME) Dexcom G6 Transmitter Device MISCELLANEOUS (DME) pen needle, diabetic [BD Isela 2nd Gen Pen Needle] 32 gauge x 5/32 needle MISCELLANEOUS Dulera 200-5 mcg/actuation HFA aerosol inhaler 2 puff INHALATION BID tirzepatide [Mounjaro] subcut valacyclovir 1 gram tablet 1,000 mg PO TID 7 Days Qty: 21 0RF azelastine 137 mcg (0.1 %) aerosol,spray See Rx Instructions .ROUTE .COMPLEX Rx Instructions: as prescribed Follow-up/Referrals: Eloy,Juan Martini MD [Primary Care Provider] - Time of Disposition: 15:39
== END 2024-06-29 15:41 | disposition home or self-care (01) ==
PROVIDERS: Emergency Provider Nurse Practitioner; PCP Family Medicine
DX: B34.9 Viral infection, unspecified (principal); Z20.822 Contact with and (suspected) exposure to COVID-19; E11.9 Type 2 diabetes mellitus without complications; E06.3 Autoimmune thyroiditis; J45.909 Unspecified asthma, uncomplicated; Z79.4 Long term (current) use of insulin
CPT/HCPCS: 87426; 87804; 99213; G0463